=== PATIENT | female | born 1940 | race African-American/Black ===

== ENCOUNTER 2018-03-08 22:11 | Emergency (ER) | payer OTHER ==
--- NOTE | 2018-03-08 23:01 | PDOC ---
History of Present Illness - General Chief Complaint: Foreign Body (FB) Stated Complaint: FOREIGN BODY Time Seen by Provider: 03/08/18 22:40 - History of Present Illness Initial Comments: 03/08/18 23:00 77 yo F with h/o HTN who p/w throat irritation. Patient reports attempt attempt to swallow pill (clonazepam) at 1000PM, with development of sensation that pill is "stuck in throat." Patient able to tolerate PO intake of liquids, and solids with absent choking. Patient denies similiar h/o symptoms in past. Patient in normal state of health yesterday. Patient denies N/V, cough, F/C, CP, SOB, urinary complaints, abdominal pain, diarrhea, constipation, lightheadedness, weakness, sensory changes. PMHx: as noted above ROS: as noted SHx: Denies Etoh, IVDA, tobacco use. Allergies: NKDA Past History - Past Medical History Allergies/Adverse Reactions: Allergies Allergy/AdvReac Type Severity Reaction Status Date / Time No Known Allergies Allergy Verified 04/11/16 14:41 Home Medications: Ambulatory Orders Paroxetine HCl [Paxil -] 20 mg PO DAILY 08/01/11 Propranolol HCl [Inderal Xl] 120 mg PO DAILY 04/11/16 clonazePAM [KlonoPIN -] 1 mg PO TID 04/11/16 CVA: No Dementia: No Diabetes: Yes (DIET CONTROLLED) HTN: No Hypercholesterolemia: No Psychiatric Problems: Yes (ANXIETY , SHAKEY, NERVOUS PROBLEM) Seizures: No - Surgical History Abdominal Surgery: Yes (TUBAL LIGATION) - Suicide/Smoking/Psychosocial Hx Smoking Status: No Smoking History: Never smoked Have you smoked in the past 12 months: No Number of Cigarettes Smoked Daily: 0 If you are a former smoker, when did you quit?: 30YRS AGO Hx Alcohol Use: No Drug/Substance Use Hx: No Substance Use Type: None Review of Systems - Review of Systems Comments:: 03/08/18 23:01 GENERAL/CONSTITUTIONAL: No fever or chills. No weakness. HEAD, EYES, EARS, NOSE AND THROAT: No change in vision. No ear pain or discharge. CARDIOVASCULAR: No chest pain or shortness of breath RESPIRATORY: No cough, wheezing, or hemoptysis. GASTROINTESTINAL: No nausea, vomiting, diarrhea or constipation. GENITOURINARY: No dysuria, frequency, or change in urination. MUSCULOSKELETAL: No joint or muscle swelling or pain. No neck or back pain. SKIN: No rash NEUROLOGIC: No headache, vertigo, loss of consciousness, or change in strength/ sensation. ENDOCRINE: No increased thirst. No abnormal weight change HEMATOLOGIC/LYMPHATIC: No anemia, easy bleeding, or history of blood clots. ALLERGIC/IMMUNOLOGIC: No hives or skin allergy. *Physical Exam - Physical Exam Comments: 03/08/18 23:01 GENERAL: Awake, alert, and fully oriented, in no acute distress HEAD: No signs of trauma, normocephalic, atraumatic EYES: PERRLA, EOMI, sclera anicteric, conjunctiva clear ENT: Auricles normal inspection, hearing grossly normal, nares patent, oropharynx clear without exudates. Moist mucosa NECK: Normal ROM, supple, no lymphadenopathy, JVD, or masses LUNGS: No distress, speaks full sentences, clear to auscultation bilaterally HEART: Regular rate and rhythm, normal S1 and S2, no murmurs, rubs or gallops, peripheral pulses normal and equal bilaterally. EXTREMITIES : Normal inspection, Normal range of motion, no edema. No clubbing or cyanosis. SKIN: Warm, Dry, normal turgor, no rashes or lesions noted Medical Decision Making - Medical Decision Making 03/08/18 23:14 77 yo F with h/o HTN who p/w throat irritation. VSS, AF. Physical exam unremakarble. Low suspicion of transport dysphagia, obstructive or motor disease. R/o foreign body esophogeal perforation. Symptoms likely 2/2 globus sensation. Able to tolerate oral secretions, voice non-muffled. ED Course: CXR Maloox, viscous lidocaine 03/09/18 01:17 CXR: Unremarkable Patient with resolution of sore throat. Able to tolerate PO food and liquid intake. *DC/Admit/Observation/Transfer Diagnosis at time of Disposition: Sore throat - Referrals Referrals: Nicolle Siegel MD [Primary Care Provider] - - Patient Instructions Printed Discharge Instructions: Sore Throat Additional Instructions: Please return to the emergency department with any new or worsening symptoms or concerns. Please follow up with your primary care physician within 72 hours. - Post Discharge Activity - Attestations Physician Attestion: 03/08/18 23:01 I attest to the information provided in this note.
[2018-03-08 23:12] VITALS: BP 159/82; PULSE 70; TEMP 99; BMI 40.3
[2018-03-09] MEDS ORDERED: MAG HYDROX/AL HYDROX/SIMETH 30 ML UNIT-DOSE CUP PO ONE (01:04)
[2018-03-09] MEDS ORDERED: LIDOCAINE VISCOUS 2% ORAL/TOP 20 ML UNIT-DOSE CUP MM ONE (01:04)
[2018-03-09] MEDS ORDERED: MAG HYDROX/AL HYDROX/SIMETH 30 ML UNIT-DOSE CUP ONE (01:16)
[2018-03-09] MEDS ORDERED: LIDOCAINE VISCOUS 2% ORAL/TOP 20 ML UNIT-DOSE CUP ONE (01:16)
--- NOTE | 2018-03-09 01:34 | PDOC ---
Attending Attestation - Resident Resident Name: Joshua Starr - ED Attending Attestation I have performed the following: I have examined & evaluated the patient, The case was reviewed & discussed with the resident, I agree w/resident's findings & plan, Exceptions are as noted - HPI HPI: 03/09/18 01:21 77yo F presents to the ED with sensation that pill is stuck in throat. Pt reports taking her clonazepam with some water and felt the pill stuck in her throat. She denies any coughing or SOB. Denies choking. REports she has been able to drink water since. Has not eaten yet. She currently states she no longer has the sensation that the pill is stuck. She endorses a sore throat earlier this morning and states he throat feels mildly sore now. Denies fevers, chills. Denies cough. Denies N/V. Denies headache, weakness, numbness. HAs never had strictures or swallowing difficulties in the past. - Physicial Exam PE: 03/09/18 01:34 GENERAL: Awake, alert, and fully oriented, in no acute distress. Pleasant eating crackers. HEAD: No signs of trauma EYES: PERRLA, EOMI, sclera anicteric, conjunctiva clear ENT: Hearing grossly normal, nares patent, oropharynx clear without exudates, erythema. Moist mucosa. Uvula midline NECK: Normal ROM, supple, no lymphadenopathy, JVD, or masses LUNGS: Breath sounds equal, clear to auscultation bilaterally. No wheezes, and no crackles HEART: Regular rate and rhythm, normal S1 and S2, no murmurs, rubs or gallops ABDOMEN: Soft, nontender, normoactive bowel sounds. No guarding, no rebound. No masses EXTREMITIES: Normal range of motion, no edema. No clubbing or cyanosis. No cords, erythema, or tenderness NEUROLOGICAL: Normal speech, cranial nerves intact,5/5 strength in all 4 extremities, normal sensation to light touch in all 4 extremities, normal cerebellar exam, normal gait, normal reflexes and tone SKIN: Warm, Dry, normal turgor, no rashes or lesions noted. - Medical Decision Making 03/09/18 01:36 77yo F presents to the ED with sensation that pill is stuck in throat, now resolved. Pt tolerating PO, eating crackers with no choking, dysphasia, odynophasia. No resp distress, stridor or tripoding. Pt feeling better now, requests DC home with family who is at bedside. Pt to f/u with PMD. I discussed the physical exam findings, ancillary test results and final diagnoses with the patient. I answered all of the patient's questions. The patient was satisfied with the care received and felt comfortable with the discharge plan and treatment plan. The patient will call their primary care physician within 24 hours to arrange follow-up and will return to the Emergency Department with any new, persistent or worsening symptoms.
== END 2018-03-09 01:39 | disposition home or self-care (01) ==
LOC: JER 22:11
DX: J02.9 Acute pharyngitis, unspecified (principal); I10 Essential (primary) hypertension; E11.9 Type 2 diabetes mellitus without complications; F41.9 Anxiety disorder, unspecified
CPT/HCPCS: 71045-TC-FY; 99284-25

== ENCOUNTER 2019-03-07 20:46 | Inpatient (IN) | payer OTHER ==
[2019-03-07] MEDS ORDERED: ONDANSETRON 4 MG/2 ML VIAL IVPUSH ONE (21:04)
[2019-03-07] MEDS ORDERED: SODIUM CHLORIDE 1,000 ML IV STA (21:04)
[2019-03-07] MEDS ORDERED: morphine CARPU-JECT 4 MG/1 ML DISP.SYRIN IVPUSH ONE (21:04)
--- NOTE | 2019-03-07 21:04 | PDOC ---
Rapid Medical Evaluation Chief Complaint: Pain Time Seen by Provider: 03/07/19 21:00 Medical Evaluation: Allergies Allergy/AdvReac Type Severity Reaction Status Date / Time No Known Allergies Allergy Verified 03/07/19 21:02 03/07/19 21:03 CC: LLQ pain with brown diarrhea. Denies rectal bleeding or travel. PE: LLQ TTP. +guarding Orders: abd w/u Patient to proceed to ER for evaluation. Discharge Disposition - Diagnosis Abdominal pain - Referrals Referrals: Nicolle Siegel MD [Primary Care Provider] - - Patient Instructions - Post Discharge Activity
--- NOTE | 2019-03-07 21:20 | PDOC ---
History of Present Illness - General Chief Complaint: Pain Stated Complaint: ABD PAIN Time Seen by Provider: 03/07/19 21:00 Past History - Past Medical History Allergies/Adverse Reactions: Allergies Allergy/AdvReac Type Severity Reaction Status Date / Time No Known Allergies Allergy Verified 03/07/19 21:02 Home Medications: Ambulatory Orders Paroxetine HCl [Paxil -] 20 mg PO DAILY 08/01/11 clonazePAM [KlonoPIN -] 1 mg PO TID 04/11/16 propRANOLol HCL [Inderal Xl] 120 mg PO DAILY 04/11/16 CVA: No COPD: No Dementia: No Diabetes: Yes (DIET CONTROLLED) HTN: No Hypercholesterolemia: No Psychiatric Problems: Yes (ANXIETY , SHAKEY, NERVOUS PROBLEM) Seizures: No - Surgical History Abdominal Surgery: Yes (TUBAL LIGATION) - Psycho Social/Smoking Cessation Hx Smoking Status: No Smoking History: Never smoked Have you smoked in the past 12 months: No Number of Cigarettes Smoked Daily: 0 If you are a former smoker, when did you quit?: 30YRS AGO Hx Alcohol Use: No Drug/Substance Use Hx: No Substance Use Type: None *Physical Exam - Vital Signs Last Vital Signs Temp Pulse Resp BP Pulse Ox 99 F 74 18 188/84 H 99 03/07/19 21:02 03/07/19 21:02 03/07/19 21:02 03/07/19 21:02 03/07/19 21:02 ED Treatment Course - LABORATORY CBC & Chemistry Diagram: 03/07/19 21:16 03/07/19 21:16 Medical Decision Making - Medical Decision Making HPI: 78yo F with PMH of HTN, pancreatitis presenting with abdominal pain x 1 day. Patient states this pain feels like her pancreatitis which was last exacerbated several years ago. Patient follows with a GI specialist and saw him within the last month. Had endoscopy/colonoscopy this past summer which was negative. Had three bowel movements today which were normal formed brown stools without blood. After the most recent bowel movement which she had in the ED, patient states her abdominal pain improved. Endorsing nausea earlier today, but not currently and no vomiting. Denies history of abdominal surgeries. No fevers, but felt cold earlier today. PCP: Dr. Nicolle Siegel GI: Dr. Canela ROS: Constitutional: no fever, +chills HEENT: no throat pain, no dysphagia Cardiovascular: no chest pain, no palpitations Respiratory: no cough, no shortness of breath Gastrointestinal: +abdominal pain, +nausea Genitourinary: no dysuria, no hematuria Musculoskeletal: no myalgia, no arthralgia Skin: no rash, no itching Neurologic: no headache, no weakness PE: General: Awake, alert, and fully oriented, in no acute distress Head: No signs of trauma Eyes: EOMI, sclera anicteric ENT: Moist mucus membranes Neck: Normal ROM, supple Lungs: Lungs clear, Normal breath sounds Cardio: Regular rhythm, S1 and S2 present Abdomen: Tender to palpation in epigastrium. Soft, nondistended. No guarding, no rebound, no masses Extremities: Normal range of motion, Distal pulses present SKIN: Warm, Dry, normal turgor Neurologic: Cranial nerves II through XII grossly intact. Normal speech. Tremulous. ED Course/MDM: DDX including but not limited to pancreatitis, acute cholecystitis, cholelithiasis, gastritis, gastroenteritis Labs, EKG, CXR Fluids, Zofran, Morphine EKG: rate 63, Qtc 444, NSR with sinus arrhythmia 03/07/19 21:20 CBC WBC 11.9 K/mm3 (4.0-10.0) H 03/07/19 21:16 RBC 4.49 M/mm3 (3.60-5.2) 03/07/19 21:16 Hgb 12.7 GM/dL (10.7-15.3) 03/07/19 21:16 Hct 38.7 % (32.4-45.2) 03/07/19 21:16 MCV 86.1 fl (80-96) 03/07/19 21:16 MCH 28.2 pg (25.7-33.7) 03/07/19 21:16 MCHC 32.8 g/dl (32.0-36.0) 03/07/19 21:16 RDW 14.4 % (11.6-15.6) 03/07/19 21:16 Plt Count 335 K/MM3 (134-434) 03/07/19 21:16 MPV 8.3 fl (7.5-11.1) 03/07/19 21:16 Absolute Neuts (auto) 9.9 K/mm3 (1.5-8.0) H 03/07/19 21:16 Neutrophils % 82.6 % (42.8-82.8) D 03/07/19 21:16 Lymphocytes % 10.6 % (8-40) D 03/07/19 21:16 Monocytes % 6.3 % (3.8-10.2) 03/07/19 21:16 Eosinophils % 0.0 % (0-4.5) D 03/07/19 21:16 Basophils % 0.5 % (0-2.0) 03/07/19 21:16 Nucleated RBC % 0 % (0-0) 03/07/19 21:16 Mild leukocytosis, 11.9 CMP Sodium 138 mmol/L (136-145) 03/07/19 21:16 Potassium 4.1 mmol/L (3.5-5.1) 03/07/19 21:16 Chloride 106 mmol/L (98-107) 03/07/19 21:16 Carbon Dioxide 25 mmol/L (21-32) 03/07/19 21:16 Anion Gap 7 MMOL/L (8-16) L 03/07/19 21:16 BUN 12.2 mg/dL (7-18) 03/07/19 21:16 Creatinine 0.8 mg/dL (0.55-1.3) 03/07/19 21:16 Est GFR (CKD-EPI)AfAm 82.42 03/07/19 21:16 Est GFR (CKD-EPI)NonAf 71.11 03/07/19 21:16 Random Glucose 148 mg/dL (74-106) H 03/07/19 21:16 Calcium 9.2 mg/dL (8.5-10.1) 03/07/19 21:16 Total Bilirubin 1.2 mg/dL (0.2-1) H 03/07/19 21:16 AST 276 U/L (15-37) H 03/07/19 21:16 ALT 120 U/L (13-61) H 03/07/19 21:16 Alkaline Phosphatase 263 U/L (45-117) H 03/07/19 21:16 Total Protein 8.0 g/dl (6.4-8.2) 03/07/19 21:16 Albumin 3.6 g/dl (3.4-5.0) 03/07/19 21:16 Lipase 545 U/L (73-393) H 03/07/19 21:16 Electrolytes unremarkable Cr normal Transaminitis ALP elevated Lipase elevated, 545 CTAP with IV contrast, as read by radiology: "EXAM#: TYPE/EXAM: RESULT: [id number] CT/ABDOMEN PELVIS CT WITH CONTR Abdomen and pelvis CT with intravenous contrast Clinical information: epigastric pain, history of pancreatitis Multiplanar imaging was performed following the intravenous administration of nonionic contrast. Enteric contrast was not administered. No evidence of pneumoperitoneum, abscess, free intraperitoneal fluid or bowel obstruction. In comparison to a prior CT exam of 12/06/2018 interval increased common bile duct dilatation is noted with a current diameter of 1.5 cm, previously 1.1 cm. No gross intraductal calculus is identified within the limitations of CT. There is mild to moderate intrahepatic biliary tract dilatation which appears mildly increased. Cholelithiasis is again noted better appreciated on previously performed MRI and ultrasound studies. Also as on prior studies there is mild diffuse gallbladder wall thickening probably on the basis of chronic cholecystitis. Note is again made of multiple small pancreatic calcifications distributed diffusely consistent with chronic calcific pancreatitis. There is increased dilatation involving the length of the main pancreatic duct with a current diameter of approximately 0.5 cm, previously 0.4 cm. No gross pancreatic soft tissue mass lesion is identified. Diffuse pancreatic atrophy is again visualized. No CT evidence of superimposed acute pancreatitis. Clinical/ laboratory correlation is suggested. A 1 cm left adrenal nodule is seen without interval change probably representing an adenoma on a statistical basis. This finding is also unchanged in comparison to a 2012 CT exam. The liver, spleen, right adrenal gland and kidneys demonstrate no discrete pathology. There is no aortic aneurysm. Several stable slightly prominent homogeneous lymph nodes are seen within the tara hepatis probably on a reactive basis. There is no obvious pelvic pathology. No CT evidence of acute appendicitis or diverticulitis. There is no gross noncontrast small bowel to moderate. Moderate to marked multilevel lumbar degenerative disc changes are seen. Marked right hip and moderate to marked left hip degenerative joint changes. Impression: In comparison to a CT exam of 12/06/2018 interval increased extrahepatic and intrahepatic biliary tract dilatation is noted. There is again visualization of chronic calcific pancreatitis with diffuse pancreatic atrophy. Mildly increased dilatation is noted of the main pancreatic duct. Cholelithiasis is again seen with mild chronic gallbladder wall thickening suggestive of chronic cholecystitis. Stable 1 cm left adrenal nodule probably representing an adenoma. Biochemical evaluation is suggested." Pending ultrasound report 03/08/19 00:14 US, as read by imaging sponge clipper: "FINDINGS: Right upper quadrant ultrasound:The liver is fatty mildly enlarged 18 cm, without mass or biliary duct dilation. The gallbladder contains multiple stones and there is mild wall thickening at 4 mm. No pericholecystic fluid or sonographic Mendoza sign.. The CBD is dilated and [id number] millimeters in diameter. Right kidney measures 7.5centimeters in length, without stones or hydronephrosis. The visualized aorta and IVC are normal. Pancreas is mostly obscured. Abdominal duplex: There is normal hepatopedal flow in the main portal vein. IMPRESSION: Moderate suspicion for cholecystitis. Dilated CBD could be due to a nonvisualized CBD stone. Fatty mildly enlarged liver. Moderately atrophic right kidney." 03/08/19 00:35 Page to on-call surgeon, 03/08/19 00:[address] Avendano MRCP recommended NPO Fluids, 150cc/hr hold ASA TS, coags Will defer the decision for Abx to ID. If we want to give abx, we can give cefoxitin. 03/08/19 01:00 Discussed case with HENRIQUE Trejo who accepted patient for admission under Dr. Miller 03/08/19 02:01 Discharge - Discharge Information Problems reviewed: Yes Clinical Impression/Diagnosis: Gallstone pancreatitis Abdominal pain Qualifiers: Abdominal location: right upper quadrant Qualified Code(s): R10.11 - Right upper quadrant pain Condition: Guarded - Admission Yes - Follow up/Referral - Patient Discharge Instructions - Post Discharge Activity
[2019-03-07 21:27] LABS: BASO % 0.5 % (0-2.0); HEMATOCRIT 38.7 % (32.4-45.2); HEMOGLOBIN 12.7 GM/dL (10.7-15.3); LYMPH % 10.6 % (8-40); MCH 28.2 pg (25.7-33.7); MCHC 32.8 g/dl (32.0-36.0); MEAN CELL VOLUME 86.1 fl (80-96); MEAN PLT VOLUME 8.3 fl (7.5-11.1); MONO % 6.3 % (3.8-10.2); NEUT % 82.6 % (42.8-82.8); PLATELET COUNT 335 K/MM3 (134-434); RBC 4.49 M/mm3 (3.60-5.2); RDW 14.4 % (11.6-15.6); WHITE BLOOD COUNT 11.9 K/mm3 (4.0-10.0)
[2019-03-07] MEDS ORDERED: ONDANSETRON 4 MG/2 ML VIAL ONE (21:28)
[2019-03-07 21:56] LABS: ALBUMIN 3.6 g/dl (3.4-5.0); ALK PHOS 263 U/L (45-117); ANION GAP 7 MMOL/L (8-16); BILIRUBIN,TOTAL 1.2 mg/dL (0.2-1); BLOOD UREA NITROGEN 12.2 mg/dL (7-18); CALCIUM 9.2 mg/dL (8.5-10.1); CHLORIDE 106 mmol/L (98-107); CO2 25 mmol/L (21-32); CREATININE 0.8 mg/dL (0.55-1.3); GLUCOSE,RANDOM 148 mg/dL (74-106); LIPASE 545 U/L (73-393); POTASSIUM 4.1 mmol/L (3.5-5.1); SGOT/AST 276 U/L (15-37); SGPT/ALT 120 U/L (13-61); SODIUM 138 mmol/L (136-145)
--- NOTE | 2019-03-08 00:30 | PDOC ---
Attending Attestation - Resident Resident Name: Lorie Cox - ED Attending Attestation I have performed the following: I have examined & evaluated the patient, The case was reviewed & discussed with the resident, I agree w/resident's findings & plan - HPI HPI: 03/08/19 00:29 see resident hpi - Physicial Exam PE: 03/08/19 00:29 agree with resident exam - Medical Decision Making 03/08/19 00:29 78-year-old female with history of pancreatitis and upper abdominal pain CT scan of the abdomen as well as right upper quadrant ultrasound were performed and suggest gallstone pancreatitis cholecystitis cannot be ruled out plan for IV antibiotics, nothing by mouth, IV fluids and analgesics Surgical consultation and admission for further management
[2019-03-08 01:15] LABS: URINE APPEARANCE CLEAR; URINE COLOR YELLOW
[2019-03-08 01:16] LABS: URINE BILIRUBIN NEGATIVE (NEGATIVE); URINE GLUCOSE (UA) NEGATIVE (NEGATIVE); URINE KETONE NEGATIVE (NEGATIVE); URINE PROTEIN NEGATIVE (NEGATIVE)
[2019-03-08 01:17] LABS: EPI CELLS 2.7 /HPF (0-5/HPF); HYALINE CASTS 0.35 /lpf (0-8); URINE BACTERIA 30.8 /hpf (NEGATIVE); URINE LEUK ESTERASE NEGATIVE (NEGATIVE); URINE NITRITE NEGATIVE (NEGATIVE); URINE RBC 2.8 /hpf (0-4); URINE WBC 0.6 /hpf (0-5)
[2019-03-08] MEDS ORDERED: SODIUM CHLORIDE 1,000 ML IV SCH ×2 (01:30→08:45)
[2019-03-08] MEDS ORDERED: morphine CARPU-JECT 4 MG/1 ML DISP.SYRIN IVPUSH ONE (01:57)
--- NOTE | 2019-03-08 02:03 | HP ---
Admitting History and Physical - Primary Care Physician PCP: Nicolle Siegel - Admission Chief Complaint: Abdominal Pain History of Present Illness: This is a 78 y/o woman with a PMHx of HTN, Pancreatitis, Anxiety. Who presents to the ED with abdominal pain and nausea x 1 day. Patient reports eating plantains with a salad, then around 12 noon she began having a sharp pain to her epigastrium radiating to RUQ. She reports attempting to lay down and get some rest, but that the pain became worse, calling her son, who suggested she go to the ED. Patient reports that the pain is similar to the Pancreatitis episode, several years ago. Patient reports having 3 formed non bloody BMs yesterday and per ED resident, had a BM in the ED with some relief. Patient reports seeing her GI this past summer having an EGD/Colonoscopy, which she reports being negative. Patient denies fever, chills, MURILLO, SOB, dizziness, CP, palpitations, V/D, constipation, melena, hematochezia, dysuria History Source: Patient Limitations to Obtaining History: No Limitations - Past Medical History Cardiovascular: Yes: HTN Gastrointestinal: Yes: Pancreatitis Psych: Yes: Anxiety Endocrine: Yes: Diabetes Mellitus (diet controlled) - Past Surgical History Past Surgical History: Yes: Colonoscopy, Joint Replacement (Left Knee) Additional Past Surgical History: EGD - Smoking History Smoking history: Former smoker Have you smoked in the past 12 months: No Aproximately how many cigarettes per day: 0 If you are a former smoker, when did you quit?: 30YRS AGO - Alcohol/Substance Use Hx Alcohol Use: No History of Substance Use: reports: None - Social History Usual Living Arrangement: Yes: Alone 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[employer]) History of Recent Travel: No Home Medications - Allergies Allergies/Adverse Reactions: Allergies Allergy/AdvReac Type Severity Reaction Status Date / Time No Known Allergies Allergy Verified 03/07/19 21:02 - Home Medications Home Medications: Ambulatory Orders Paroxetine HCl [Paxil -] 20 mg PO DAILY 08/01/11 clonazePAM [KlonoPIN -] 1 mg PO TID 04/11/16 propRANOLol HCL [Inderal Xl] 120 mg PO DAILY 04/11/16 Family Medical History Family History: Unable to Obtain Review of Systems - Review of Systems Constitutional: reports: No Symptoms Eyes: reports: No Symptoms HENT: reports: No Symptoms Neck: reports: No Symptoms Cardiovascular: reports: No Symptoms Respiratory: reports: No Symptoms Gastrointestinal: reports: Abdominal Pain, Nausea Genitourinary: reports: No Symptoms Breasts: reports: No Symptoms Reported Musculoskeletal: reports: No Symptoms Integumentary: reports: No Symptoms Neurological: reports: No Symptoms Endocrine: reports: No Symptoms Hematology/Lymphatic: reports: No Symptoms Psychiatric: reports: No Symptoms Pain Intensity: 7 Physical Examination Vital Signs: Vital Signs Temperature 99 F 03/07/19 21:02 Pulse Rate 74 03/07/19 21:02 Respiratory Rate 18 03/07/19 21:02 Blood Pressure 188/84 H 03/07/19 21:02 O2 Sat by Pulse Oximetry (%) 99 03/07/19 21:02 Constitutional: Yes: Well Nourished, No Distress, Calm Eyes: Yes: WNL, Conjunctiva Clear, EOM Intact, PERRL HENT: Yes: WNL, Atraumatic, Normocephalic Neck: Yes: WNL, Supple, Trachea Midline Cardiovascular: Yes: WNL, Regular Rate and Rhythm, S1, S2 Respiratory: Yes: WNL, Regular, CTA Bilaterally Gastrointestinal: Yes: Soft, Abdomen, Obese, Hypoactive Bowel Sounds, Tenderness , Epigastrium. No: Tenderness, Rebound Renal/: Yes: WNL Breast(s): Yes: WNL Musculoskeletal: Yes: WNL Extremities: Yes: WNL Edema: No Peripheral Pulses WNL: Yes Neurological: Yes: Alert, Oriented, Cran Nerves II-XII Intact ...Motor Strength: WNL Psychiatric: Yes: WNL, Alert, Oriented Labs: CBC, BMP 03/07/19 21:16 03/07/19 21:16 Imaging - Results Cat Scan: Report Reviewed (CTAP with IV contrast, as read by radiology: "EXAM#: TYPE/EXAM: RESULT: [id number] CT/ABDOMEN PELVIS CT WITH CONTR Abdomen and pelvis CT with intravenous contrast Clinical information: epigastric pain, history of pancreatitis Multiplanar imaging was performed following the intravenous administration of nonionic contrast. Enteric contrast was not administered. No evidence of pneumoperitoneum, abscess, free intraperitoneal fluid or bowel obstruction. In comparison to a prior CT exam of 12/06/2018 interval increased common bile duct dilatation is noted with a current diameter of 1.5 cm, previously 1.1 cm. No gross intraductal calculus is identified within the limitations of CT. There is mild to moderate intrahepatic biliary tract dilatation which appears mildly increased. Cholelithiasis is again noted better appreciated on previously performed MRI and ultrasound studies. Also as on prior studies there is mild diffuse gallbladder wall thickening probably on the basis of chronic cholecystitis. Note is again made of multiple small pancreatic calcifications distributed diffusely consistent with chronic calcific pancreatitis. There is increased dilatation involving the length of the main pancreatic duct with a current diameter of approximately 0.5 cm, previously 0.4 cm. No gross pancreatic soft tissue mass lesion is identified. Diffuse pancreatic atrophy is again visualized. No CT evidence of superimposed acute pancreatitis. Clinical/laboratory correlation is suggested. A 1 cm left adrenal nodule is seen without interval change probably representing an adenoma on a statistical basis. This finding is also unchanged in comparison to a 2012 CT exam. The liver, spleen, right adrenal gland and kidneys demonstrate no discrete pathology. There is no aortic aneurysm. Several stable slightly prominent homogeneous lymph nodes are seen within the tara hepatis probably on a reactive basis. There is no obvious pelvic pathology. No CT evidence of acute appendicitis or diverticulitis. There is no gross noncontrast small bowel to moderate. Moderate to marked multilevel lumbar degenerative disc changes are seen. Marked right hip and moderate to marked left hip degenerative joint changes. Impression: In comparison to a CT exam of 12/06/2018 interval increased extrahepatic and intrahepatic biliary tract dilatation is noted. There is again visualization of chronic calcific pancreatitis with diffuse pancreatic atrophy. Mildly increased dilatation is noted of the main pancreatic duct. Cholelithiasis is again seen with mild chronic gallbladder wall thickening suggestive of chronic cholecystitis. Stable 1 cm left adrenal nodule probably representing an adenoma. Biochemical evaluation is suggested."), Image Reviewed Ultrasound: Report Reviewed (US, as read by imaging contract management specialist: "FINDINGS: Right upper quadrant ultrasound:The liver is fatty mildly enlarged 18 cm, without mass or biliary duct dilation. The gallbladder contains multiple stones and there is mild wall thickening at 4 mm. No pericholecystic fluid or sonographic Mendoza sign.. The CBD is dilated and [id number] millimeters in diameter. Right kidney measures 7.5centimeters in length, without stones or hydronephrosis. The visualized aorta and IVC are normal. Pancreas is mostly obscured. Abdominal duplex: There is normal hepatopedal flow in the main portal vein. IMPRESSION: Moderate suspicion for cholecystitis. Dilated CBD could be due to a nonvisualized CBD stone. Fatty mildly enlarged liver. Moderately atrophic right kidney." 03/08/19 00:35), Image Reviewed Problem List - Problems (1) Gallstone pancreatitis Assessment/Plan: CTAP- showed increased biliary tract dilatation, chronic calcific pancreatitis, cholelithiasis, mild chronic gallbladder wall thickening suggestive of chronic cholecystitis, stable 1cm left adrenal nodule probably representing an adenoma. Biochemical evaluation is suggested Appreciate Surgical consult- Dr Avendano notified and aware, per ED resident WBC 11.9, no L- shift, pt afebrile NS fluids given in ED, will switch to LR instead NPO Monitor CBC, BMP Zofran prn Pain Management- Morphine Sulfate MRCP- pending Code(s): K85.10 - BILIARY ACUTE PANCREATITIS WITHOUT NECROSIS OR INFECTION (2) Chronic cholecystitis Assessment/Plan: CTAP- reviewed WBC 13.9 Surgical Consult appreciated NPO Continue IVF Code(s): K81.1 - CHRONIC CHOLECYSTITIS (3) Abdominal pain Assessment/Plan: See above Code(s): R10.9 - UNSPECIFIED ABDOMINAL PAIN Qualifiers: Abdominal location: right upper quadrant Qualified Code(s): R10.11 - Right upper quadrant pain (4) HTN (hypertension) Assessment/Plan: sub optimal Continue home med Monitor BP Code(s): I10 - ESSENTIAL (PRIMARY) HYPERTENSION Assessment/Plan This is a 78 y/o woman with a PMHx of HTN, Pancreatitis, Anxiety admitted to Med Surg for Chronic Pancreatitis for further evaluation of their emergent condition. Plan: See Problem List FEN LR@150ml/hr Replete lytes prn NPO DVT ppx OOB SCDs Will hold ACs until cleared by Surgeon possible procedure Dispo: Requires Inpatient Care Visit type - Emergency Visit Emergency Visit: Yes ED Registration Date: 03/07/19 Care time: The patient presented to the Emergency Department on the above date and was hospitalized for further evaluation of their emergent condition. - New Patient This patient is new to me today: Yes Date on this admission: 03/08/19 - Critical Care Critical Care patient: No
[2019-03-08] MEDS ORDERED: morphine SULFATE 4 MG/ML VIAL ONE (02:19)
[2019-03-08] MEDS: LACTATED RINGERS SOLUTION 1,000 ML/1,000 ML INFUS.BAG IV SCH ×2 (02:23→04:37)
[2019-03-08] MEDS ORDERED: ONDANSETRON 4 MG/2 ML VIAL IVPUSH PRN (03:00)
[2019-03-08 05:07] VITALS: BMI 32.1
[2019-03-08] MEDS ORDERED: morphine SULFATE 4 MG/ML VIAL IVPUSH PRN (06:00)
[2019-03-08 07:03] LABS: BASO % 0.8 % (0-2.0); HEMATOCRIT 38.4 % (32.4-45.2); HEMOGLOBIN 12.2 GM/dL (10.7-15.3); LYMPH % 6.9 % (8-40); MCH 27.8 pg (25.7-33.7); MCHC 31.8 g/dl (32.0-36.0); MEAN CELL VOLUME 87.5 fl (80-96); MEAN PLT VOLUME 9.1 fl (7.5-11.1); MONO % 5.1 % (3.8-10.2); NEUT % 87.2 % (42.8-82.8); PLATELET COUNT 289 K/MM3 (134-434); RBC 4.39 M/mm3 (3.60-5.2); RDW 14.5 % (11.6-15.6); WHITE BLOOD COUNT 14.6 K/mm3 (4.0-10.0)
[2019-03-08 07:23] LABS: INR 1.22 (0.83-1.09); PROTHROMBIN TIME (PATIENT) 14.4 SEC (9.7-13.0)
[2019-03-08 07:34] LABS: BLOOD UREA NITROGEN 8.9 mg/dL (7-18); CALCIUM 8.9 mg/dL (8.5-10.1); CREATININE 0.8 mg/dL (0.55-1.3); POTASSIUM 3.8 mmol/L (3.5-5.1)
--- NOTE | 2019-03-08 08:25 | CON.GI ---
Consult Consult Specialty:: GI Referred by:: Lilly Trejo NP Reason for Consultation:: Chronic Pancreatitis - History of Present Illness Chief Complaint: Abdominal Pain History of Present Illness: Patient is a 78 y/o female with past medical history of HTN and Pancreatitis. Patient presented to ER with complaints of abdominal pain. Patient states that after eating plantains yesterday at 12pm she developed a cramping right sided abdominal pain radiating to epigastric area accompanied with nausea and loose BM. She states nothing exacerbated the abdominal pain but it was relieved with "pills" but unable to state which pill. Denies vomiting, rectal bleeding, melena. In ER noted with leukocytosis WBC 11.[address] scan showing increased CBD dilatation with current diameter 1.5cm, chronic calcific pancreatitis with diffuse pancreatic atrophy, mildly increased dilatation noted in main pancreatic duct, cholelithiasis with mild chronic gallbladder wall thickening suggestive of chronic cholecystitis. - History Source History Provided By: Patient Limitations to Obtaining History: No Limitations - Past Medical History Cardio/Vascular: Yes: HTN Gastrointestinal: Yes: Pancreatitis ...: No Psych: Yes: Anxiety Endocrine: Yes: Diabetes Mellitus (diet controlled) - Past Surgical History Past Surgical History: Yes: Colonoscopy, Joint Replacement (Left Knee) - Alcohol/Substance Use Hx Alcohol Use: No History of Substance Use: reports: None - Smoking History Smoking history: Former smoker Have you smoked in the past 12 months: No Aproximately how many cigarettes per day: 0 If you are a former smoker, when did you quit?: 30YRS AGO - Social History 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[facility]) History of Recent Travel: No Home Medications - Allergies Allergies/Adverse Reactions: Allergies Allergy/AdvReac Type Severity Reaction Status Date / Time No Known Allergies Allergy Verified 03/07/19 21:02 - Home Medications Home Medications: Ambulatory Orders Paroxetine HCl [Paxil -] 20 mg PO DAILY 08/01/11 clonazePAM [KlonoPIN -] 1 mg PO TID 04/11/16 propRANOLol HCL [Inderal Xl] 120 mg PO DAILY 04/11/16 Aspirin 81 mg PO DAILY 03/08/19 Review of Systems - Review of Systems Constitutional: reports: No Symptoms Eyes: reports: No Symptoms HENT: reports: No Symptoms Neck: reports: No Symptoms Cardiovascular: reports: No Symptoms Respiratory: reports: No Symptoms Gastrointestinal: reports: Abdominal Pain, Nausea Genitourinary: reports: No Symptoms Breasts: reports: No Symptoms Reported Musculoskeletal: reports: No Symptoms Integumentary: reports: No Symptoms Neurological: reports: No Symptoms Endocrine: reports: No Symptoms Hematology/Lymphatic: reports: No Symptoms Psychiatric: reports: No Symptoms Physical Exam-GI Vital Signs: Vital Signs Temperature 98.0 F 03/08/19 06:41 Pulse Rate 79 03/08/19 06:41 Respiratory Rate 18 03/08/19 06:41 Blood Pressure 170/84 03/08/19 06:41 O2 Sat by Pulse Oximetry (%) 99 03/08/19 04:40 Constitutional: Yes: No Distress, Calm Eyes: Yes: Conjunctiva Clear HENT: Yes: Atraumatic Cardiovascular: Yes: Regular Rate and Rhythm Respiratory: Yes: Regular, CTA Bilaterally Gastrointestinal Inspection: Yes: WNL. No: Ascites, Distention, Hernia, Scars, Other ...Auscultate: Yes: Normoactive Bowel Sounds. No: Hyperactive Bowel Sounds, Hypoactive Bowel Sounds, No Bowel Sounds, Other ...Palpate: Yes: Soft, Tenderness (RUQ, epigastric). No: Firm/Rigid, Guarding, Hepatomegaly, Mass, Pulsatile Mass, Splenomegaly, Tenderness, Epigastium, Tenderness, Rebound, Other ...Percussion: Yes: Dullness. No: Fluid Wave, Tympanitic, Other Neurological: Yes: Alert, Oriented Psychiatric: Yes: Alert, Oriented Labs: CBC, BMP 03/08/19 06:25 03/08/19 06:25 INR, PTT INR 1.22 (0.83-1.09) H 03/08/19 06:25 Active Medications Generic Name Dose Route Start Last Admin Trade Name Freq PRN Reason Stop Dose Admin Ceftriaxone Sodium 1 gm/ 50 mls @ 100 mls/hr 03/08/19 10:00 Dextrose IVPB DAILY [facility] Protocol Metronidazole 500 mg in 100 mls @ 100 mls/hr 03/08/19 10:00 Flagyl 500mg Premixed Ivpb - IVPB Q8H-IV RACHEL Sodium Chloride 1,000 mls @ 125 mls/hr 03/08/19 08:45 Normal Saline - IV 03/10/19 16:44 ASDIR RACHEL Sodium Chloride 1,000 mls @ 150 mls/hr 03/08/19 08:45 Normal Saline - IV 03/10/19 15:24 ASDIR [facility] Morphine Sulfate 4 mg 03/08/19 06:00 Morphine Sulfate IVPUSH Q6H PRN PAIN LEVEL 7 - 10 Ondansetron HCl 4 mg 03/08/19 03:00 03/08/19 02:29 Zofran Injection IVPUSH 4 mg Q6H PRN Administration NAUSEA Propranolol HCl 120 mg 03/08/19 10:00 Inderal La - PO DAILY [facility] Problem List - Problems (1) Cholangitis Assessment/Plan: R> will need ERCP risk ERCP but not limited to severe pancreatitis, bleeding, perforation and risk of anesthesia, stroke and NH was discussed with the patient and her son. There given a chance to ask questions. Code(s): K83.09 - OTHER CHOLANGITIS (2) Chronic cholecystitis Assessment/Plan: -IV hydration -Ceftriaxone and Flagyl -Lipase 545 -CT scan results reviewed -Surgical Consult Code(s): K81.1 - CHRONIC CHOLECYSTITIS (3) Gallstone pancreatitis Assessment/Plan: -IV hydration -Ceftriaxone and Flagyl -pending Abdominal MRCP Code(s): K85.10 - BILIARY ACUTE PANCREATITIS WITHOUT NECROSIS OR INFECTION
[2019-03-08] MEDS ORDERED: cefTRIAXone SODIUM 1 GM VIAL ONE (09:30)
[2019-03-08] MEDS ORDERED: DEXTROSE 5%-WATER - 50 ML IVPB ONE (09:30)
[2019-03-08] MEDS ORDERED: CEFTRIAXONE 1 GM in DEXTROSE 5%-WATER - 50 ML IVPB SCH (10:00)
[2019-03-08] MEDS: SODIUM CHLORIDE 1,000 ML IV SCH (10:59)
--- NOTE | 2019-03-08 11:31 | EKG ---
Test Reason : Blood Pressure : / mmHG Vent. Rate : 063 BPM Atrial Rate : 063 BPM P-R Int : 180 ms QRS Dur : 090 ms QT Int : 434 ms P-R-T Axes : 064 031 054 degrees QTc Int : 444 ms NORMAL SINUS RHYTHM WITH SINUS ARRHYTHMIA NORMAL ECG WHEN COMPARED WITH ECG OF 06-DEC-2013 14:25, CRITERIA FOR SEPTAL INFARCT ARE NO LONGER PRESENT Confirmed by JUAN DANIEL MARTIN, ROLANDO ([id number]) on 03/08/2019 11:30:53 AM Referred By: Confirmed By:ROLANDO FRANCES MD
[2019-03-08] MEDS ORDERED: INDOMETHACIN 50 MG RECTAL SUPPOSITORY PR ONE ×2 (12:52→13:10)
--- NOTE | 2019-03-08 13:36 | PN ---
Progress Note (short form) - Note Progress Note: Events noted has pain in abdomen Vital Signs - 24 hr 03/07/19 03/08/19 03/08/19 21:02 03:34 04:40 Temperature 99 F 98.9 F 97.7 F Pulse Rate 74 69 Pulse Rate [ 73 Apical] Respiratory 18 19 19 Rate Blood Pressure 188/84 H 167/84 Blood Pressure 173/86 H [Left Arm] O2 Sat by Pulse 99 99 99 Oximetry (%) 03/08/19 03/08/19 06:41 09:00 Temperature 98.0 F Pulse Rate 79 Pulse Rate [ Apical] Respiratory 18 20 Rate Blood Pressure 170/84 Blood Pressure [Left Arm] O2 Sat by Pulse 99 Oximetry (%) Current Medications Generic Name Dose Route Start Last Admin Trade Name Freq PRN Reason Stop Dose Admin Ceftriaxone Sodium 1 gm/ 50 mls @ 100 mls/hr 03/08/19 10:00 03/08/19 10:58 Dextrose IVPB 100 mls/hr DAILY RACHEL Administration Protocol Metronidazole 500 mg in 100 mls @ 100 mls/hr 03/08/19 10:00 03/08/19 10:58 Flagyl 500mg Premixed Ivpb - IVPB 100 mls/hr Q8H-IV RACHEL Administration Sodium Chloride 1,000 mls @ 125 mls/hr 03/08/19 08:45 03/08/19 11:05 Normal Saline - IV 03/10/19 16:44 125 mls/hr ASDIR RACHEL Administration Sodium Chloride 1,000 mls @ 150 mls/hr 03/08/19 08:45 03/08/19 10:59 Normal Saline - IV 03/10/19 15:24 150 mls/hr ASDIR RACHEL Administration Morphine Sulfate 4 mg 03/08/19 06:00 Morphine Sulfate IVPUSH Q6H PRN PAIN LEVEL 7 - 10 Ondansetron HCl 4 mg 03/08/19 03:00 03/08/19 02:29 Zofran Injection IVPUSH 4 mg Q6H PRN Administration NAUSEA Propranolol HCl 120 mg 03/08/19 10:00 03/08/19 10:58 Inderal La - PO 120 mg DAILY RACHEL Administration Laboratory Results - last 24 hr 03/07/19 03/07/19 03/08/19 21:16 21:16 00:00 WBC 11.9 H RBC 4.49 Hgb 12.7 Hct 38.7 MCV 86.1 MCH 28.2 MCHC 32.8 RDW 14.4 Plt Count 335 MPV 8.3 Absolute Neuts (auto) 9.9 H Neutrophils % 82.6 D Lymphocytes % 10.6 D Monocytes % 6.3 Eosinophils % 0.0 D Basophils % 0.5 Nucleated RBC % 0 PT with INR INR Sodium 138 Potassium 4.1 Chloride 106 Carbon Dioxide 25 Anion Gap 7 L BUN 12.2 Creatinine 0.8 Est GFR (CKD-EPI)AfAm 82.42 Est GFR (CKD-EPI)NonAf 71.11 Random Glucose 148 H Calcium 9.2 Total Bilirubin 1.2 H AST 276 H ALT 120 H Alkaline Phosphatase 263 H Total Protein 8.0 Albumin 3.6 Lipase 545 H Urine Color Yellow Urine Appearance Clear Urine pH 7.0 D Ur Specific [place] 1.049 H Urine Protein Negative Urine Glucose (UA) Negative Urine Ketones Negative Urine Blood Negative Urine Nitrite Negative Urine Bilirubin Negative Urine Urobilinogen 1.0 Ur Leukocyte Esterase Negative Urine WBC (Auto) 0.6 Urine RBC (Auto) 2.8 Urine Casts (Auto) 0.35 U Epithel Cells (Auto) 2.7 Urine Bacteria (Auto) 30.8 Alcohol, Quantitative < 3.0 Blood Type Antibody Screen 03/08/19 03/08/19 03/08/19 06:25 06:25 06:25 WBC 14.6 H RBC 4.39 Hgb 12.2 Hct 38.4 MCV 87.5 MCH 27.8 MCHC 31.8 L RDW 14.5 Plt Count 289 MPV 9.1 Absolute Neuts (auto) 12.7 H Neutrophils % 87.2 H Lymphocytes % 6.9 L D Monocytes % 5.1 Eosinophils % 0.0 Basophils % 0.8 Nucleated RBC % 0 PT with INR 14.40 H INR 1.22 H Sodium Potassium Chloride Carbon Dioxide Anion Gap BUN Creatinine Est GFR (CKD-EPI)AfAm Est GFR (CKD-EPI)NonAf Random Glucose Calcium Total Bilirubin AST ALT Alkaline Phosphatase Total Protein Albumin Lipase Urine Color Urine Appearance Urine pH Ur Specific [place] Urine Protein Urine Glucose (UA) Urine Ketones Urine Blood Urine Nitrite Urine Bilirubin Urine Urobilinogen Ur Leukocyte Esterase Urine WBC (Auto) Urine RBC (Auto) Urine Casts (Auto) U Epithel Cells (Auto) Urine Bacteria (Auto) Alcohol, Quantitative Blood Type A NEGATIVE Antibody Screen Negative 03/08/19 06:25 WBC RBC Hgb Hct MCV MCH MCHC RDW Plt Count MPV Absolute Neuts (auto) Neutrophils % Lymphocytes % Monocytes % Eosinophils % Basophils % Nucleated RBC % PT with INR INR Sodium 139 Potassium 3.8 Chloride 104 Carbon Dioxide 27 Anion Gap 7 L BUN 8.9 Creatinine 0.8 Est GFR (CKD-EPI)AfAm 82.42 Est GFR (CKD-EPI)NonAf 71.11 Random Glucose 120 H Calcium 8.9 Total Bilirubin AST ALT Alkaline Phosphatase Total Protein Albumin Lipase Urine Color Urine Appearance Urine pH Ur Specific [place] Urine Protein Urine Glucose (UA) Urine Ketones Urine Blood Urine Nitrite Urine Bilirubin Urine Urobilinogen Ur Leukocyte Esterase Urine WBC (Auto) Urine RBC (Auto) Urine Casts (Auto) U Epithel Cells (Auto) Urine Bacteria (Auto) Alcohol, Quantitative Blood Type Antibody Screen S1 S2 RRR Lungs clear Abd- soft ,tender+RUQ no edema PLAN NPO for ERCP today surgery eval GI eval noted IV fluids pain control ID consult for antibiotics SCD for DVT prophylaxis Problem List - Problems (1) Abdominal pain Code(s): R10.9 - UNSPECIFIED ABDOMINAL PAIN Qualifiers: Abdominal location: right upper quadrant Qualified Code(s): R10.11 - Right upper quadrant pain (2) Acute cholangitis due to calculus of bile duct with obstruction Code(s): K80.33 - CALCULUS OF BILE DUCT W ACUTE CHOLANGITIS WITH OBSTRUCTION (3) Cholangitis Code(s): K83.09 - OTHER CHOLANGITIS (4) Choledocholithiasis Code(s): K80.50 - CALCULUS OF BILE DUCT W/O CHOLANGITIS OR CHOLECYST W/O OBST (5) HTN (hypertension) Code(s): I10 - ESSENTIAL (PRIMARY) HYPERTENSION Qualifiers: Hypertension type: essential hypertension Qualified Code(s): I10 - Essential (primary) hypertension
[2019-03-08] MEDS ORDERED: IOHEXOL 300 MG/ML INFUS..BTL IV ONE (13:38)
[2019-03-08] MEDS ORDERED: METOCLOPRAMIDE HCL INJECTION 10 MG/2 ML VIAL ONE (13:47)
--- NOTE | 2019-03-08 15:48 | CONSULT ---
Consult Consult Specialty:: General Surgery Referred by:: Lorie Cox Reason for Consultation:: gallstone pancreatitis, possible cholecystitis - History of Present Illness Chief Complaint: central abdominal pain, chills, nausea History of Present Illness: 78yo obese F with HTN, chronic pancreatitis (heavy EtOH use in past - quit at least 30 yrs ago), gallstones noted on imaging last year, s/p tubal ligation and left knee replacement, presented to ER yesterday with central abdominal pain radiating to epigastric and RUQ areas, associated with chills, nausea but no vomiting, no change in bowel habits, decreased urination - felt similar to her previous pancreatitis pain. She had eaten plantains for breakfast, and the pain started around 1pm. In ER, she had wbc 11.9, elevated LFTs and lipase 545. US and CT showed gallstones with mild wall thickening (noted on previous studies , thought likely related to chronic cholecystitis), no pericholecystic fluid, chronic calcific pancreatic changes, enlarged CBD and increased intrahepatic dilation. She was ordered for MRCP, admitted to medicine, given IV fluids and pain meds. Surgery was asked to assess. This morning, wbc adonis to 14.6, and she was seen by GI. Dr. Canela took her for ERCP today, performed sphincterotomy, removed an impacted stone, and was unable to sweep out additional filling defects, so left a biliary stent. She is seen and examined in bed, still rather sleepy from the procedure, with her daughter Alyson present. She states she feels much better than when she arrived, the pain is much less. She denies other recent illness. Was having formed BMs, and just voided in bathroom. She is able to answer questions, but is fairly groggy still. She admits to not having been taking her usual baby aspirin recently. Had colonoscopy/endoscopy by Dr. Canela over the summer. - History Source History Provided By: Patient Limitations to Obtaining History: No Limitations - Past Medical History Cardio/Vascular: Yes: HTN Gastrointestinal: Yes: Pancreatitis Hepatobiliary: Yes: Cholelithiasis Reproductive: Yes: Postmenopausal Psych: Yes: Anxiety Endocrine: Yes: Diabetes Mellitus (diet controlled) - Past Surgical History Past Surgical History: Yes: Colonoscopy, Joint Replacement (Left Knee), Tubal Ligation, Upper Endoscopy - Alcohol/Substance Use Hx Alcohol Use: No (heavy in past - quit 30 yrs ago) History of Substance Use: reports: None - Smoking History Smoking history: Former smoker Have you smoked in the past 12 months: No If you are a former smoker, when did you quit?: 30 YRS AGO - Social History 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 denies: Fever Eyes: denies: Blurred Vision, Recent Change in Vision HENT: denies: Difficult Swallowing, Throat Pain Neck: denies: Swollen Glands, Tenderness Cardiovascular: denies: Chest Pain, Palpitations Respiratory: denies: Cough, SOB Gastrointestinal: reports: Abdominal Pain, Nausea. denies: Constipation, Diarrhea, Vomiting Genitourinary: denies: Burning, Dysuria Musculoskeletal: reports: Other (had bilateral ribcage pain few months ago, went away). denies: Back Pain, Joint Pain, Muscle Pain Integumentary: denies: Change in Color, Rash Neurological: reports: Headache. denies: Dizziness Psychiatric: reports: Anxiety. denies: Depression Physical Exam Vital Signs: Vital Signs Temperature 99.8 F H 03/08/19 14:20 Pulse Rate 68 03/08/19 15:20 Respiratory Rate 20 03/08/19 15:20 Blood Pressure 173/76 H 03/08/19 15:20 O2 Sat by Pulse Oximetry (%) 100 03/08/19 15:20 Constitutional: Yes: No Distress, Calm, Obese Eyes: Yes: Conjunctiva Clear, EOM Intact. No: Sclera Icterus HENT: Yes: Atraumatic, Normocephalic Neck: Yes: Supple, Trachea Midline Cardiovascular: Yes: Regular Rate and Rhythm, Murmur Respiratory: Yes: Regular, CTA Bilaterally Gastrointestinal: Yes: Normal Bowel Sounds, Soft, Abdomen, Obese, Tenderness ( RUQ mild, no rebound/guarding), Tenderness, Epigastrium (mild), Other (healed small left infraumbilical scar) ...Rectal Exam: Yes: Deferred Renal/: No: CVA Tenderness - Left, CVA Tenderness - Right Musculoskeletal: No: Joint Stiffness, Joint Swelling Extremities: No: Cool, Cyanosis Edema: No Peripheral Pulses WNL: Yes Integumentary: No: Jaundice, Rash Neurological: Yes: Alert (enough to answer questions), Oriented, Lethargy ( sleepy (recent anesthesia)) Psychiatric: Yes: Alert, Oriented Labs: CBC, BMP 03/08/19 06:25 03/08/19 06:25 CMP Sodium 139 mmol/L (136-145) 03/08/19 06:25 Potassium 3.8 mmol/L (3.5-5.1) 03/08/19 06:25 Chloride 104 mmol/L (98-107) 03/08/19 06:25 Carbon Dioxide 27 mmol/L (21-32) 03/08/19 06:25 Anion Gap 7 MMOL/L (8-16) L 03/08/19 06:25 BUN 8.9 mg/dL (7-18) 03/08/19 06:25 Creatinine 0.8 mg/dL (0.55-1.3) 03/08/19 06:25 Est GFR (CKD-EPI)AfAm 82.42 03/08/19 06:25 Est GFR (CKD-EPI)NonAf 71.11 03/08/19 06:25 Random Glucose 120 mg/dL (74-106) H 03/08/19 06:25 Calcium 8.9 mg/dL (8.5-10.1) 03/08/19 06:25 Total Bilirubin 1.2 mg/dL (0.2-1) H 03/07/19 21:16 AST 276 U/L (15-37) H 03/07/19 21:16 ALT 120 U/L (13-61) H 03/07/19 21:16 Alkaline Phosphatase 263 U/L (45-117) H 03/07/19 21:16 Total Protein 8.0 g/dl (6.4-8.2) 03/07/19 21:16 Albumin 3.6 g/dl (3.4-5.0) 03/07/19 21:16 Lipase 545 U/L (73-393) H 03/07/19 21:16 INR, PTT INR 1.22 (0.83-1.09) H 03/08/19 06:25 Urine Test Results Urine Color Yellow 03/08/19 00:00 Urine Appearance Clear 03/08/19 00:00 Urine pH 7.0 (5.0-8.0) D 03/08/19 00:00 Ur Specific [place] 1.049 (1.010-1.035) H 03/08/19 00:00 Urine Protein Negative (NEGATIVE) 03/08/19 00:00 Urine Glucose (UA) Negative (NEGATIVE) 03/08/19 00:00 Urine Ketones Negative (NEGATIVE) 03/08/19 00:00 Urine Blood Negative (NEGATIVE) 03/08/19 00:00 Urine Nitrite Negative (NEGATIVE) 03/08/19 00:00 Urine Bilirubin Negative (NEGATIVE) 03/08/19 00:00 Ur Leukocyte Esterase Negative (NEGATIVE) 03/08/19 00:00 wbc up from 11.9 Imaging - Results Cat Scan: Report Reviewed, Image Reviewed (images reviewed - enlarged bile ducts , chronic pancreatic calcifications, distended gallbladder, no ascites) Ultrasound: Report Reviewed (gallstones with mild wall thickening, dilated CBD and intrahepatic ducts, no pericholecystic fluid, no cbd stones seen) MRI: Other (cancelled - ERCP already done) Problem List - Problems (1) Gallstone pancreatitis Assessment/Plan: admitted to medicine NPO except meds - continue home meds except asa generous IV fluids trend labs, replete lytes prn seen by GI, s/p ERCP today with sphincterotomy, extraction of impacted stone, stent for residual CBD filling defects after sweeping monitor for increase in lipase post-procedure will discuss timing of cholecystectomy pending lab trend and clinical exam would keep NPO except meds at least 24 hrs, and until pt is nontender pain meds prn - nonnarcotics first line (iv tylenol) discussed with Dr. Mann Code(s): K85.10 - BILIARY ACUTE PANCREATITIS WITHOUT NECROSIS OR INFECTION (2) Calculus of gallbladder and bile duct with chronic cholecystitis with obstruction Code(s): K80.65 - CALCULUS OF GB AND BILE DUCT W CHRONIC CHOLECYST W OBST (3) Acute cholangitis due to calculus of bile duct with obstruction Assessment/Plan: currently on Ceftriaxone/Flagyl ID consulted - seen and discussed with Dr. Mccollum Code(s): K80.33 - CALCULUS OF BILE DUCT W ACUTE CHOLANGITIS WITH OBSTRUCTION (4) Epigastric pain Assessment/Plan: improved Code(s): R10.13 - EPIGASTRIC PAIN (5) Chronic calcific pancreatitis Code(s): K86.1 - OTHER CHRONIC PANCREATITIS (6) HTN (hypertension) Assessment/Plan: continue propranolol Code(s): I10 - ESSENTIAL (PRIMARY) HYPERTENSION Qualifiers: Hypertension type: essential hypertension Qualified Code(s): I10 - Essential (primary) hypertension (7) Obesity due to excess calories without serious comorbidity Code(s): E66.09 - OTHER OBESITY DUE TO EXCESS CALORIES Qualifiers: Obesity classification: adult class 1 (BMI 30 - 34.9) Body mass index: BMI 32.0-32.9 Qualified Code(s): E66.09 - Other obesity due to excess calories; Z68.32 - Body mass index (BMI) 32.0-32.9, adult
[2019-03-08] MEDS ORDERED: CEFTRIAXONE 1 GM in DEXTROSE 5%-WATER - 50 ML IVPB ONE ×2 (17:04→17:21)
--- NOTE | 2019-03-08 17:12 | PN ---
Progress Note (short form) - Note Progress Note: ID consult dictated imp/reccd choledocholithiasis-s/p ercp with stent today chronic cholycystitis gallstone pancreatitis chronic pancreatitis no recent admissions no recent antibiotics no history of MDRO ceftriaxone and flagyl should be fine but surgery is switching fluids to LR will switch to ertapenem to avoid any incompatability issue d/w dr ramírez Problem List - Problems (1) Choledocholithiasis Code(s): K80.50 - CALCULUS OF BILE DUCT W/O CHOLANGITIS OR CHOLECYST W/O OBST (2) Chronic cholecystitis Code(s): K81.1 - CHRONIC CHOLECYSTITIS (3) Gallstone pancreatitis Code(s): K85.10 - BILIARY ACUTE PANCREATITIS WITHOUT NECROSIS OR INFECTION (4) Chronic calcific pancreatitis Code(s): K86.1 - OTHER CHRONIC PANCREATITIS
--- NOTE | 2019-03-08 18:24 | CONS ---
INFECTIOUS DISEASE CONSULTATION DATE OF CONSULTATION: 03/08/2019 This is a 78-year-old woman who presented to the emergency room yesterday with complaints of some nausea and abdominal discomfort. She had eaten salad that morning, and she started having abdominal pain that afternoon. It radiated to her right upper quadrant. She had 3 formed, non-bloody bowel movements. No diarrhea. She denies any fevers or chills. She has no headache, chest pain, shortness of breath. She was noted to have abnormal LFTs. She had a workup that included a CAT scan of her abdomen and pelvis and an ultrasound that showed chronic calcific pancreatitis with a dilated CBD and dilated intra- and extra-hepatic biliary tract dilatation with chronic cholecystitis. She also had chronic calcific pancreatitis. She was evaluated by GI. She was started on ceftriaxone and Flagyl this morning and was taken for ERCP which she underwent. She had multiple stones. She had a stent placed and is currently awake and alert and back at her bed. PAST MEDICAL HISTORY: Notable for hypertension, chronic pancreatitis, anxiety, diabetes. SURGICAL HISTORY: Notable for a left knee replacement. She has had a tubal ligation as well in the past. SOCIAL HISTORY: She is a former smoker, former alcohol user; both she stopped 30 years ago. There is no history of substance use. She lives alone. 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 There is no history of any recent travel. She has 5 adult children. ALLERGIES: She has no known drug allergies. MEDICATIONS AT HOME: Include Paxil, Klonopin, and Inderal. There is no history of any recent hospitalizations. Her last hospitalization was for her knee replacement which was in 2013. There is no history of any [id number]-mrhf-[id number] organisms, and she has had no recent antibiotics. FAMILY HISTORY: Unremarkable. REVIEW OF SYSTEMS: As per HPI. PHYSICAL EXAMINATION: Vital Signs: Temperature is 98.7. Pulse is 68. Blood pressure 173/68. Respiratory rate is 20. She is saturating 100%. HEENT: She is normocephalic. Her eyes are anicteric. Neck: Supple. Lungs: Clear to auscultation. Heart: Regular rate and rhythm. Abdomen: She currently has no abdominal pain and diminished bowel sounds. Extremities: Without edema. LABORATORY DATA: White count was 11.9 on admission, this morning 14.6; hemoglobin 12.2; platelets are 289. INR is 1.2. Her LFTs were notable for AST of 276, ALT of 120, alkaline phosphatase of 263, with a lipase of 545. BUN is 8 and creatinine 0.8. Urinalysis is negative, and cultures are pending. IMAGING: As previously described. In summary, this is a 78-year-old woman status post ERCP with stent today for choledocholithiasis. She has evidence of chronic cholecystitis, gallstone pancreatitis, and chronic pancreatitis. She has had no recent admissions, no recent antibiotics, and no history of multi-drug resistance. Ceftriaxone and Flagyl should be fine. With surgery, switching fluids to LR. She has minimal IV access; so, we will switch her to ertapenem to avoid any incompatibility issues. Would follow up her cultures. Case was discussed with Surgery. Jaja [id number]
[2019-03-08] MEDS: ERTAPENEM SODIUM 1 GM in SODIUM CHLORIDE 50 ML IVPB SCH (20:25)
[2019-03-08] MEDS: clonazePAM 0.5 MG TABLET PO SCH (21:16)
[2019-03-09] MEDS ORDERED: LACTATED RINGERS SOLUTION 1,000 ML/1,000 ML INFUS.BAG IV SCH ×2 (05:00→20:23)
[2019-03-09] MEDS: clonazePAM 0.5 MG TABLET PO SCH ×3 (05:29→22:00)
[2019-03-09 06:57] LABS: BASO % 0.3 % (0-2.0); EOS % 0.4 % (0-4.5); HEMATOCRIT 32.3 % (32.4-45.2); HEMOGLOBIN 10.4 GM/dL (10.7-15.3); MCH 28.1 pg (25.7-33.7); MCHC 32.2 g/dl (32.0-36.0); MEAN CELL VOLUME 87.2 fl (80-96); MEAN PLT VOLUME 8.4 fl (7.5-11.1); MONO % 5.6 % (3.8-10.2); NEUT % 84.7 % (42.8-82.8); PLATELET COUNT 235 K/MM3 (134-434); RDW 14.7 % (11.6-15.6); WHITE BLOOD COUNT 14.5 K/mm3 (4.0-10.0)
[2019-03-09 07:32] LABS: ALBUMIN 2.7 g/dl (3.4-5.0); BILIRUBIN,TOTAL 1.2 mg/dL (0.2-1); BLOOD UREA NITROGEN 9.6 mg/dL (7-18); CALCIUM 8.1 mg/dL (8.5-10.1); CREATININE 0.7 mg/dL (0.55-1.3); POTASSIUM 3.3 mmol/L (3.5-5.1)
--- NOTE | 2019-03-09 07:49 | PN ---
Progress Note, Physician History of Present Illness: GI FOLLOW UP NOTE Patient examined and case discussed with Dr Canela Patient is s/p ERCP with sphincterectomy, an impacted stone was removed, and biliary stent was placed. Labs showing downtrend in LFTs. Patient denies abdominal pain, nausea, vomiting, diarrhea. - Current Medication List Current Medications: Active Medications Acetaminophen (Ofirmev Injection -) 1,000 mg IVPB Q6H PRN PRN Reason: Pain Level 4 - 10 Clonazepam (Klonopin -) 1 mg PO TID [facility] Last Admin: 03/09/19 05:29 Dose: 1 mg Sodium Chloride (Normal Saline -) 1,000 mls @ 150 mls/hr IV ASDIR [facility] Stop: 03/10/19 15:24 Last Admin: 03/08/19 10:59 Dose: 150 mls/hr Lactated Ringer's (Lactated Ringers Solution) 1,000 ml in 1,000 mls @ 150 mls/ hr IV ASDIR [facility] Last Admin: 03/09/19 05:29 Dose: 150 mls/hr Ertapenem 1 gm/ Sodium (Chloride) 50 mls @ 100 mls/hr IVPB DAILY [facility] Last Admin: 03/08/19 20:25 Dose: 100 mls/hr Morphine Sulfate (Morphine Sulfate) 4 mg IVPUSH Q6H PRN PRN Reason: PAIN LEVEL 7 - 10 Ondansetron HCl (Zofran Injection) 4 mg IVPUSH Q6H PRN PRN Reason: NAUSEA Last Admin: 03/08/19 02:29 Dose: 4 mg Paroxetine HCl (Paxil -) 20 mg PO DAILY [facility] Propranolol HCl (Inderal La -) 120 mg PO DAILY [facility] - Objective Vital Signs: Vital Signs Temperature 99.2 F 03/09/19 06:18 Pulse Rate 85 03/09/19 06:18 Respiratory Rate 18 03/09/19 06:18 Blood Pressure 156/74 03/09/19 06:18 O2 Sat by Pulse Oximetry (%) 100 03/08/19 21:00 Constitutional: Yes: No Distress, Calm Eyes: Yes: Conjunctiva Clear HENT: Yes: Atraumatic Cardiovascular: Yes: Regular Rate and Rhythm Respiratory: Yes: Regular, CTA Bilaterally Gastrointestinal: Yes: Normal Bowel Sounds, Soft, Tenderness (mild ruq) Neurological: Yes: Alert, Oriented Psychiatric: Yes: Alert, Oriented Labs: CBC, BMP 03/09/19 06:20 03/09/19 06:20 INR, PTT INR 1.22 (0.83-1.09) H 03/08/19 06:25 <Celeste Echevarria - Last Filed: 03/09/19 07:44> - Current Medication List Current Medications: Active Medications Acetaminophen (Ofirmev Injection -) 1,000 mg IVPB Q6H PRN PRN Reason: Pain Level 4 - 10 Clonazepam (Klonopin -) 1 mg PO TID [facility] Last Admin: 03/09/19 15:23 Dose: 1 mg Lactated Ringer's (Lactated Ringers Solution) 1,000 ml in 1,000 mls @ 150 mls/ hr IV ASDIR [facility] Last Admin: 03/09/19 05:29 Dose: 150 mls/hr Ertapenem 1 gm/ Sodium (Chloride) 50 mls @ 100 mls/hr IVPB DAILY [facility] Last Admin: 03/09/19 09:47 Dose: 100 mls/hr Potassium Phosphate 30 mm/ (Dextrose) 510 mls @ 63.75 mls/hr IVPB ONCE ONE Stop: 03/09/19 20:59 Last Admin: 03/09/19 15:24 Dose: 63.75 mls/hr Morphine Sulfate (Morphine Sulfate) 4 mg IVPUSH Q6H PRN PRN Reason: PAIN LEVEL 7 - 10 Ondansetron HCl (Zofran Injection) 4 mg IVPUSH Q6H PRN PRN Reason: NAUSEA Last Admin: 03/08/19 02:29 Dose: 4 mg Paroxetine HCl (Paxil -) 20 mg PO DAILY [facility] Last Admin: 03/09/19 09:45 Dose: 20 mg Propranolol HCl (Inderal La -) 120 mg PO DAILY [facility] Last Admin: 03/09/19 09:45 Dose: 120 mg - Objective Vital Signs: Vital Signs Temperature 98.3 F 03/09/19 13:48 Pulse Rate 63 03/09/19 13:48 Respiratory Rate 20 03/09/19 13:48 Blood Pressure 171/82 H 03/09/19 13:48 O2 Sat by Pulse Oximetry (%) 100 03/09/19 08:32 Labs: CBC, BMP 03/09/19 06:20 03/09/19 06:20 INR, PTT INR 1.22 (0.83-1.09) H 03/08/19 06:25 <Gigi Canela - Last Filed: 03/09/19 16:21> Problem List - Problems (1) Choledocholithiasis Assessment/Plan: -S/p ERCP with biliary stent placement -IV hydration -AST 52, ALT 55, Alk Phos 186 -continue to monitor LFTs Code(s): K80.50 - CALCULUS OF BILE DUCT W/O CHOLANGITIS OR CHOLECYST W/O OBST (2) Chronic calcific pancreatitis Code(s): K86.1 - OTHER CHRONIC PANCREATITIS (3) Chronic cholecystitis Assessment/Plan: -Surgery on board -IV hydration -Lipase 104 -pain control Code(s): K81.1 - CHRONIC CHOLECYSTITIS <Celeste Echevarria - Last Filed: 03/09/19 07:44> - Problems (1) Cholangitis Code(s): K83.09 - OTHER CHOLANGITIS (2) Chronic cholecystitis Code(s): K81.1 - CHRONIC CHOLECYSTITIS (3) Gallstone pancreatitis Code(s): K85.10 - BILIARY ACUTE PANCREATITIS WITHOUT NECROSIS OR INFECTION <Gigi Canela - Last Filed: 03/09/19 16:21>
[2019-03-09] MEDS ORDERED: PARoxetine HCL 10 MG TABLET ONE (09:03)
[2019-03-09] MEDS ORDERED: PT OWN MED DRAWER 7, Y5N ONE ×4 (09:04→22:22)
[2019-03-09] MEDS: PARoxetine HCL 20 MG TABLET PO SCH (09:45)
[2019-03-09] MEDS: ERTAPENEM SODIUM 1 GM in SODIUM CHLORIDE 50 ML IVPB SCH (09:47)
[2019-03-09] MEDS ORDERED: CEFTRIAXONE 2 GM in DEXTROSE 5%-WATER 100 ML IVPB SCH (10:00)
--- NOTE | 2019-03-09 12:30 | PN ---
Progress Note (short form) - Note Progress Note: s/p ERCP and removal of stone, sphincterectomy NPO wants to eat has pain in abdomen but not as severe Vital Signs - 24 hr 03/08/19 03/08/19 03/08/19 14:20 14:35 14:50 Temperature 99.8 F H Pulse Rate 82 73 71 Respiratory 16 18 18 Rate Blood Pressure 187/78 H 182/81 H 173/81 H O2 Sat by Pulse 97 99 99 Oximetry (%) 03/08/19 03/08/19 03/08/19 15:00 15:05 15:20 Temperature 98.7 F Pulse Rate 70 67 68 Respiratory 18 20 20 Rate Blood Pressure 142/68 176/86 H 173/68 H O2 Sat by Pulse 99 100 Oximetry (%) 03/08/19 03/08/19 03/08/19 18:12 21:00 21:46 Temperature 98.7 F Pulse Rate 65 Respiratory 18 18 18 Rate Blood Pressure 167/76 O2 Sat by Pulse 100 Oximetry (%) 03/08/19 03/09/19 03/09/19 21:51 01:55 06:18 Temperature 98.4 F 99.8 F H 99.2 F Pulse Rate 72 75 85 Respiratory 18 18 18 Rate Blood Pressure 140/64 150/84 156/74 O2 Sat by Pulse Oximetry (%) 03/09/19 03/09/19 08:32 09:51 Temperature 98.4 F Pulse Rate 74 Respiratory 18 18 Rate Blood Pressure 146/70 O2 Sat by Pulse 100 Oximetry (%) Current Medications Generic Name Dose Route Start Last Admin Trade Name Freq PRN Reason Stop Dose Admin Acetaminophen 1,000 mg 03/08/19 17:15 Ofirmev Injection - IVPB Q6H PRN Pain Level 4 - 10 Clonazepam 1 mg 03/08/19 22:00 03/09/19 05:29 Klonopin - PO 1 mg TID RACHEL Administration Sodium Chloride 1,000 mls @ 150 mls/hr 03/08/19 08:45 03/08/19 10:59 Normal Saline - IV 03/10/19 15:24 150 mls/hr ASDIR RACHEL Administration Lactated Ringer's 1,000 ml in 1,000 mls @ 150 mls/hr 03/09/19 05:00 03/09/19 05:29 Lactated Ringers Solution IV 150 mls/hr ASDIR [facility]ACHEL Administration Ertapenem 1 gm/ Sodium 50 mls @ 100 mls/hr 03/08/19 17:45 03/09/19 09:47 Chloride IVPB 100 mls/hr DAILY RACHEL Administration Potassium Chloride 10 meq in 100 mls @ 100 mls/hr 03/09/19 12:30 Potassium Chloride 10 Meq Premix Ivpb - IVPB 03/09/19 14:29 Q60M RACHEL Morphine Sulfate 4 mg 03/08/19 06:00 Morphine Sulfate IVPUSH Q6H PRN PAIN LEVEL 7 - 10 Ondansetron HCl 4 mg 03/08/19 03:00 03/08/19 02:29 Zofran Injection IVPUSH 4 mg Q6H PRN Administration NAUSEA Paroxetine HCl 20 mg 03/09/19 10:00 03/09/19 09:45 Paxil - PO 20 mg DAILY RACHEL Administration Propranolol HCl 120 mg 03/09/19 10:00 03/09/19 09:45 Inderal La - PO 120 mg DAILY RACHEL Administration Laboratory Results - last 24 hr 03/09/19 03/09/19 06:20 06:20 WBC 14.5 H RBC 3.70 Hgb 10.4 L Hct 32.3 L D MCV 87.2 MCH 28.1 MCHC 32.2 RDW 14.7 Plt Count 235 MPV 8.4 Absolute Neuts (auto) 12.3 H Neutrophils % 84.7 H Lymphocytes % 9.0 D Monocytes % 5.6 Eosinophils % 0.4 D Basophils % 0.3 Nucleated RBC % 0 Sodium 144 Potassium 3.3 L Chloride 111 H Carbon Dioxide 26 Anion Gap 7 L BUN 9.6 Creatinine 0.7 Est GFR (CKD-EPI)AfAm 96.86 Est GFR (CKD-EPI)NonAf 83.57 Random Glucose 87 Calcium 8.1 L Phosphorus 2.0 L Magnesium 2.0 Total Bilirubin 1.2 H AST 52 H ALT 55 Alkaline Phosphatase 186 H Total Protein 6.0 L Albumin 2.7 L Lipase 104 S1 S2 RRR Lungs clear Abd-soft, obese, tender right upper quadrant no edema PLAN Keep NPO ID eval noted IV fluids iv antibiotics replacing electrolytes LFT trending down will need cholecystectomy Problem List - Problems (1) Abdominal pain Code(s): R10.9 - UNSPECIFIED ABDOMINAL PAIN Qualifiers: Abdominal location: right upper quadrant Qualified Code(s): R10.11 - Right upper quadrant pain (2) Acute cholangitis due to calculus of bile duct with obstruction Code(s): K80.33 - CALCULUS OF BILE DUCT W ACUTE CHOLANGITIS WITH OBSTRUCTION (3) Calculus of gallbladder and bile duct with chronic cholecystitis with obstruction Code(s): K80.65 - CALCULUS OF GB AND BILE DUCT W CHRONIC CHOLECYST W OBST (4) Choledocholithiasis Code(s): K80.50 - CALCULUS OF BILE DUCT W/O CHOLANGITIS OR CHOLECYST W/O OBST (5) HTN (hypertension) Code(s): I10 - ESSENTIAL (PRIMARY) HYPERTENSION Qualifiers: Hypertension type: essential hypertension Qualified Code(s): I10 - Essential (primary) hypertension
[2019-03-09] MEDS: SODIUM CHLORIDE 1,000 ML IV SCH (12:40)
[2019-03-09] MEDS ORDERED: POTASSIUM PHOSPHATE 30 MM in DEXTROSE 5%-WATER - 500 ML IVPB ONE (13:00)
[2019-03-09] MEDS: KCL 10 MEQ IVPB 10 MEQ/100 ML INFUS.BAG IVPB SCH (13:12)
--- NOTE | 2019-03-09 14:43 | PN ---
Progress Note, Physician Chief Complaint: s/p ERCP post op day one History of Present Illness: under general anesthesia - Current Medication List Current Medications: Active Medications Acetaminophen (Ofirmev Injection -) 1,000 mg IVPB Q6H PRN PRN Reason: Pain Level 4 - 10 Clonazepam (Klonopin -) 1 mg PO TID [facility] Last Admin: 03/09/19 05:29 Dose: 1 mg Lactated Ringer's (Lactated Ringers Solution) 1,000 ml in 1,000 mls @ 150 mls/ hr IV ASDIR [facility] Last Admin: 03/09/19 05:29 Dose: 150 mls/hr Ertapenem 1 gm/ Sodium (Chloride) 50 mls @ 100 mls/hr IVPB DAILY [facility] Last Admin: 03/09/19 09:47 Dose: 100 mls/hr Potassium Phosphate 30 mm/ (Dextrose) 510 mls @ 63.75 mls/hr IVPB ONCE ONE Stop: 03/09/19 20:59 Morphine Sulfate (Morphine Sulfate) 4 mg IVPUSH Q6H PRN PRN Reason: PAIN LEVEL 7 - 10 Ondansetron HCl (Zofran Injection) 4 mg IVPUSH Q6H PRN PRN Reason: NAUSEA Last Admin: 03/08/19 02:29 Dose: 4 mg Paroxetine HCl (Paxil -) 20 mg PO DAILY [facility] Last Admin: 03/09/19 09:45 Dose: 20 mg Propranolol HCl (Inderal La -) 120 mg PO DAILY [facility] Last Admin: 03/09/19 09:45 Dose: 120 mg - Objective Vital Signs: Vital Signs Temperature 98.3 F 03/09/19 13:48 Pulse Rate 63 03/09/19 13:48 Respiratory Rate 20 03/09/19 13:48 Blood Pressure 171/82 H 03/09/19 13:48 O2 Sat by Pulse Oximetry (%) 100 03/09/19 08:32 Constitutional: Yes: Well Nourished Cardiovascular: Yes: WNL Respiratory: Yes: WNL Gastrointestinal: Yes: WNL Labs: CBC, BMP 03/09/19 06:20 03/09/19 06:20 INR, PTT INR 1.22 (0.83-1.09) H 03/08/19 06:25 Assessment/Plan No adverse effect of anesthetic, pain controlled, dept of anesthesiology will sign off care at this time
--- NOTE | 2019-03-09 20:18 | PN ---
Progress Note, Physician History of Present Illness: Pt with chronic pancreatitis, acute gallstone pancreatitis, cholangitis from stones in CBD s/p ERCP with sphincterotomy, removal of impacted stone, and biliary stenting for residual filling defects in cbd She is seen and examined sitting up in bed, with son and other friends and family present. Reports feeling much better, no pain, hungry. She is on antibiotics per ID, IV fluids, and has been voiding well. LFTs coming down, lipase normal today, wbc still elevated. - Current Medication List Current Medications: Active Medications Acetaminophen (Ofirmev Injection -) 1,000 mg IVPB Q6H PRN PRN Reason: Pain Level 4 - 10 Clonazepam (Klonopin -) 1 mg PO TID [facility] Last Admin: 03/09/19 15:23 Dose: 1 mg Lactated Ringer's (Lactated Ringers Solution) 1,000 ml in 1,000 mls @ 150 mls/ hr IV ASDIR [facility] Last Admin: 03/09/19 05:29 Dose: 150 mls/hr Ertapenem 1 gm/ Sodium (Chloride) 50 mls @ 100 mls/hr IVPB DAILY [facility] Last Admin: 03/09/19 09:47 Dose: 100 mls/hr Potassium Phosphate 30 mm/ (Dextrose) 510 mls @ 63.75 mls/hr IVPB ONCE ONE Stop: 03/09/19 20:59 Last Admin: 03/09/19 15:24 Dose: 63.75 mls/hr Morphine Sulfate (Morphine Sulfate) 4 mg IVPUSH Q6H PRN PRN Reason: PAIN LEVEL 7 - 10 Ondansetron HCl (Zofran Injection) 4 mg IVPUSH Q6H PRN PRN Reason: NAUSEA Last Admin: 03/08/19 02:29 Dose: 4 mg Paroxetine HCl (Paxil -) 20 mg PO DAILY [facility] Last Admin: 03/09/19 09:45 Dose: 20 mg Propranolol HCl (Inderal La -) 120 mg PO DAILY [facility] Last Admin: 03/09/19 09:45 Dose: 120 mg - Objective Vital Signs: Vital Signs Temperature 98.4 F 03/09/19 19:35 Pulse Rate 74 03/09/19 19:35 Respiratory Rate 20 03/09/19 19:35 Blood Pressure 176/96 H 03/09/19 19:35 O2 Sat by Pulse Oximetry (%) 100 03/09/19 08:32 Constitutional: Yes: No Distress, Calm, Obese Eyes: Yes: Conjunctiva Clear, EOM Intact. No: Sclera Icterus HENT: Yes: Atraumatic, Normocephalic Gastrointestinal: Yes: Soft, Abdomen, Obese. No: Tenderness, Tenderness, Epigastrium Extremities: No: Cool, Cyanosis Integumentary: No: Jaundice, Rash Neurological: Yes: Alert, Oriented Labs: CBC, BMP 03/09/19 06:20 03/09/19 06:20 CMP Sodium 144 mmol/L (136-145) 03/09/19 06:20 Potassium 3.3 mmol/L (3.5-5.1) L 03/09/19 06:20 Chloride 111 mmol/L (98-107) H 03/09/19 06:20 Carbon Dioxide 26 mmol/L (21-32) 03/09/19 06:20 Anion Gap 7 MMOL/L (8-16) L 03/09/19 06:20 BUN 9.6 mg/dL (7-18) 03/09/19 06:20 Creatinine 0.7 mg/dL (0.55-1.3) 03/09/19 06:20 Est GFR (CKD-EPI)AfAm 96.86 03/09/19 06:20 Est GFR (CKD-EPI)NonAf 83.57 03/09/19 06:20 Random Glucose 87 mg/dL (74-106) 03/09/19 06:20 Calcium 8.1 mg/dL (8.5-10.1) L 03/09/19 06:20 Phosphorus 2.0 mg/dL (2.5-4.9) L 03/09/19 06:20 Magnesium 2.0 mg/dL (1.8-2.4) 03/09/19 06:20 Total Bilirubin 1.2 mg/dL (0.2-1) H 03/09/19 06:20 AST 52 U/L (15-37) H 03/09/19 06:20 ALT 55 U/L (13-61) 03/09/19 06:20 Alkaline Phosphatase 186 U/L (45-117) H 03/09/19 06:20 Total Protein 6.0 g/dl (6.4-8.2) L 03/09/19 06:20 Albumin 2.7 g/dl (3.4-5.0) L 03/09/19 06:20 Lipase 104 U/L (73-393) 03/09/19 06:20 [facility] being repleted Problem List - Problems (1) Gallstone pancreatitis Assessment/Plan: POD1 s/p ERCP with sphincterotomy, extraction of impacted stone, stent for residual CBD filling defects after sweeping NPO except meds - continue home meds except asa generous IV fluids - will decrease a little trend labs, replete lytes prn no post-procedure pancreatitis exacerbation pain meds prn - nonnarcotics first line (iv tylenol) Discussed with patient risks, benefits and alternatives of laparoscopic possible open cholecystectomy, including but not limited to bleeding, infection , injury to adjacent structures, bile leak or ductal injury, intraabdominal abscess, incisional hernia, need for further procedures, ; alternatives include antibiotics with delayed or no surgery - risks of this include recurrence of pancreatitis, cholangitis, cholecystitis, sepsis and consequences. Patient desires to proceed with operation - will take to OR in am for above. Informed consent signed for same. Plan is for surgery 8am Fri 03/10. Send am antibiotic to OR with patient. Anticipate resuming po postop. Code(s): K85.10 - BILIARY ACUTE PANCREATITIS WITHOUT NECROSIS OR INFECTION (2) Calculus of gallbladder and bile duct with chronic cholecystitis with obstruction Code(s): K80.65 - CALCULUS OF GB AND BILE DUCT W CHRONIC CHOLECYST W OBST (3) Acute cholangitis due to calculus of bile duct with obstruction Assessment/Plan: currently on Ertapenem per ID Code(s): K80.33 - CALCULUS OF BILE DUCT W ACUTE CHOLANGITIS WITH OBSTRUCTION (4) Epigastric pain Assessment/Plan: resolved Code(s): R10.13 - EPIGASTRIC PAIN (5) Chronic calcific pancreatitis Code(s): K86.1 - OTHER CHRONIC PANCREATITIS (6) HTN (hypertension) Assessment/Plan: continue propranolol Code(s): I10 - ESSENTIAL (PRIMARY) HYPERTENSION Qualifiers: Hypertension type: essential hypertension Qualified Code(s): I10 - Essential (primary) hypertension (7) Obesity due to excess calories without serious comorbidity Code(s): E66.09 - OTHER OBESITY DUE TO EXCESS CALORIES Qualifiers: Obesity classification: adult class 1 (BMI 30 - 34.9) Body mass index: BMI 32.0-32.9 Qualified Code(s): E66.09 - Other obesity due to excess calories; Z68.32 - Body mass index (BMI) 32.0-32.9, adult
[2019-03-09] MEDS: ACETAMINOPHEN 1000 MG/100 ML VIAL (NON FORMULARY) IVPB PRN (22:44)
[2019-03-10] MEDS: clonazePAM 0.5 MG TABLET PO SCH ×3 (05:01→21:28)
[2019-03-10 07:01] LABS: BASO % 1.2 % (0-2.0); EOS % 4.5 % (0-4.5); HEMATOCRIT 34.5 % (32.4-45.2); HEMOGLOBIN 11.5 GM/dL (10.7-15.3); LYMPH % 13.7 % (8-40); MCH 28.9 pg (25.7-33.7); MCHC 33.4 g/dl (32.0-36.0); MEAN CELL VOLUME 86.5 fl (80-96); MEAN PLT VOLUME 9.2 fl (7.5-11.1); MONO % 4.9 % (3.8-10.2); NEUT % 75.7 % (42.8-82.8); PLATELET COUNT 293 K/MM3 (134-434); RBC 3.99 M/mm3 (3.60-5.2); RDW 14.7 % (11.6-15.6); WHITE BLOOD COUNT 14.3 K/mm3 (4.0-10.0)
[2019-03-10] MEDS ORDERED: BUPIVACAINE HCL/PF 0.5% (5 MG/ML) 30 ML VIAL IJ ONE ×2 (07:19)
--- NOTE | 2019-03-10 07:30 | PN ---
Progress Note, Physician History of Present Illness: GI FOLLOW UP NOTE Patient examined and case discussed with Dr Canela Patient is s/p ERCP with sphincterectomy, an impacted stone was removed, and biliary stent was placed. Patient is NPO after midnight for cholecystectomy today. Labs show leukocytosis with WBC 14.3. Denies abdominal pain, nausea, vomiting, diarrhea, rectal bleeding or melena. - Current Medication List Current Medications: Active Medications Acetaminophen (Ofirmev Injection -) 1,000 mg IVPB Q6H PRN PRN Reason: Pain Level 4 - 10 Last Admin: 03/09/19 22:44 Dose: 1,000 mg Clonazepam (Klonopin -) 1 mg PO TID [facility] Last Admin: 03/10/19 05:01 Dose: 1 mg Ertapenem 1 gm/ Sodium (Chloride) 50 mls @ 100 mls/hr IVPB DAILY [facility] Last Admin: 03/09/19 09:47 Dose: 100 mls/hr Lactated Ringer's (Lactated Ringers Solution) 1,000 ml in 1,000 mls @ 100 mls/ hr IV ASDIR [facility] Last Admin: 03/09/19 20:54 Dose: 100 mls/hr Morphine Sulfate (Morphine Sulfate) 4 mg IVPUSH Q6H PRN PRN Reason: PAIN LEVEL 7 - 10 Ondansetron HCl (Zofran Injection) 4 mg IVPUSH Q6H PRN PRN Reason: NAUSEA Last Admin: 03/08/19 02:29 Dose: 4 mg Paroxetine HCl (Paxil -) 20 mg PO DAILY [facility] Last Admin: 03/09/19 09:45 Dose: 20 mg Propranolol HCl (Inderal La -) 120 mg PO DAILY [facility] Last Admin: 03/09/19 09:45 Dose: 120 mg - Objective Vital Signs: Vital Signs Temperature 98.0 F 03/10/19 04:51 Pulse Rate 72 03/10/19 04:51 Respiratory Rate 18 03/10/19 04:51 Blood Pressure 158/72 03/10/19 04:51 O2 Sat by Pulse Oximetry (%) 100 03/09/19 21:00 Constitutional: Yes: No Distress, Calm Eyes: Yes: Conjunctiva Clear HENT: Yes: Atraumatic Cardiovascular: Yes: Regular Rate and Rhythm Respiratory: Yes: Regular, CTA Bilaterally Gastrointestinal: Yes: Normal Bowel Sounds, Soft Neurological: Yes: Alert, Oriented Psychiatric: Yes: Alert, Oriented Labs: CBC, BMP 03/10/19 06:25 INR, PTT INR 1.22 (0.83-1.09) H 03/08/19 06:25 Problem List - Problems (1) Choledocholithiasis Assessment/Plan: -S/p ERCP with biliary stent placement -IV hydration -LFTs showing downtrend -continue to monitor LFTs Code(s): K80.50 - CALCULUS OF BILE DUCT W/O CHOLANGITIS OR CHOLECYST W/O OBST (2) Chronic calcific pancreatitis Code(s): K86.1 - OTHER CHRONIC PANCREATITIS (3) Chronic cholecystitis Assessment/Plan: -Surgery on board -IV hydration -Lipase 104 -pain control -NPO -for cholecystectomy this AM Code(s): K81.1 - CHRONIC CHOLECYSTITIS
[2019-03-10] MEDS: KCL 10 MEQ IVPB 10 MEQ/100 ML INFUS.BAG IVPB SCH (07:45)
[2019-03-10] MEDS ORDERED: ROCURONIUM BROMIDE 50 MG/5 ML SYRINGE ONE (07:56)
[2019-03-10] MEDS ORDERED: LIDOCAINE HCL/PF 2% SDV 5ML VIAL ONE (07:56)
[2019-03-10] MEDS ORDERED: PROPOFOL 20 ML ONE ×2 (07:56)
[2019-03-10] MEDS ORDERED: MIDAZOLAM HCL 2 MG/2 ML SINGLE DOSE VIAL ONE (07:57)
[2019-03-10 08:37] LABS: ALBUMIN 2.9 g/dl (3.4-5.0); ALK PHOS 190 U/L (45-117); BLOOD UREA NITROGEN 6.2 mg/dL (7-18); CALCIUM 8.9 mg/dL (8.5-10.1); CHLORIDE 107 mmol/L (98-107); CO2 26 mmol/L (21-32); CREATININE 0.7 mg/dL (0.55-1.3); GLUCOSE,RANDOM 81 mg/dL (74-106); SGPT/ALT 46 U/L (13-61); SODIUM 141 mmol/L (136-145); TOT PROT 7.2 g/dl (6.4-8.2)
[2019-03-10] MEDS ORDERED: NEOSTIGMINE METHYLSULFATE 0.5 MG/ML - 10 ML MDV ONE (09:05)
[2019-03-10] MEDS ORDERED: GLYCOPYRROLATE 0.2 MG/1 ML VIAL ONE (09:05)
[2019-03-10] MEDS ORDERED: DEXAMETHASONE SOD PHOSPHATE 4 MG/1 ML VIAL ONE (09:05)
--- NOTE | 2019-03-10 09:27 | PN ---
Progress Note (short form) - Note Progress Note: s/p ERCP and removal of stone, sphincterectomy went for cholecystectomy today will follow. Vital Signs Temp 98.0 F 03/10/19 04:51 Pulse 72 03/10/19 04:51 Resp 18 03/10/19 04:51 BP 158/72 03/10/19 04:51 Pulse Ox 100 03/09/19 21:00 Intake & Output 03/09/19 03/09/19 03/10/19 11:59 23:59 11:59 Intake Total 400 1200 1200 Output Total 0 Balance 400 1200 1200 Intake: IV 198 864 [id number] LACTATED RINGERS SOLUTION 1200 1,000 ml In 1,000 ml @ 100 mls/hr IV ASDIR [facility] Rx#:[id number] LACTATED RINGERS SOLUTION 400 700 1,000 ml In 1,000 ml @ 150 mls/hr IV ASDIR [facility] Rx#:[id number] IVPB 500 Oral 0 0 Output: Estimated Blood Loss 0 Other: Voiding Method Toilet Toilet Toilet # Unmeasured Voids Void 1 6 Bowel Movement 1 Yes # Bowel Movements 1 Active Medications Acetaminophen (Ofirmev Injection -) 1,000 mg IVPB Q6H PRN PRN Reason: Pain Level 4 - 10 Last Admin: 03/09/19 22:44 Dose: 1,000 mg Clonazepam (Klonopin -) 1 mg PO TID [facility] Last Admin: 03/10/19 05:01 Dose: 1 mg Ertapenem 1 gm/ Sodium (Chloride) 50 mls @ 100 mls/hr IVPB DAILY [facility] Last Admin: 03/09/19 09:47 Dose: 100 mls/hr Lactated Ringer's (Lactated Ringers Solution) 1,000 ml in 1,000 mls @ 100 mls/ hr IV ASDIR [facility] Last Admin: 03/09/19 20:54 Dose: 100 mls/hr Morphine Sulfate (Morphine Sulfate) 4 mg IVPUSH Q6H PRN PRN Reason: PAIN LEVEL 7 - 10 Ondansetron HCl (Zofran Injection) 4 mg IVPUSH Q6H PRN PRN Reason: NAUSEA Last Admin: 03/08/19 02:29 Dose: 4 mg Paroxetine HCl (Paxil -) 20 mg PO DAILY [facility] Last Admin: 03/09/19 09:45 Dose: 20 mg Propranolol HCl (Inderal La -) 120 mg PO DAILY [facility] Last Admin: 03/09/19 09:45 Dose: 120 mg CBC, BMP 03/10/19 06:25 03/10/19 06:25 CMP Sodium 141 mmol/L (136-145) 03/10/19 06:25 Potassium TNP 03/10/19 06:25 Chloride 107 mmol/L (98-107) 03/10/19 06:25 Carbon Dioxide 26 mmol/L (21-32) 03/10/19 06:25 Anion Gap No Result Required. 03/10/19 06:25 BUN 6.2 mg/dL (7-18) L 03/10/19 06:25 Creatinine 0.7 mg/dL (0.55-1.3) 03/10/19 06:25 Est GFR (CKD-EPI)AfAm 96.86 03/10/19 06:25 Est GFR (CKD-EPI)NonAf 83.57 03/10/19 06:25 Random Glucose 81 mg/dL (74-106) 03/10/19 06:25 Calcium 8.9 mg/dL (8.5-10.1) 03/10/19 06:25 Phosphorus 2.0 mg/dL (2.5-4.9) L 03/09/19 06:20 Magnesium 2.0 mg/dL (1.8-2.4) 03/09/19 06:20 Total Bilirubin 1.0 mg/dL (0.2-1) 03/10/19 06:25 AST TNP 03/10/19 06:25 ALT 46 U/L (13-61) 03/10/19 06:25 Alkaline Phosphatase 190 U/L (45-117) H 03/10/19 06:25 Total Protein 7.2 g/dl (6.4-8.2) 03/10/19 06:25 Albumin 2.9 g/dl (3.4-5.0) L 03/10/19 06:25 Lipase 104 U/L (73-393) 03/09/19 06:20 Hepatic Panel Total Bilirubin 1.0 mg/dL (0.2-1) 03/10/19 06:25 AST TNP 03/10/19 06:25 ALT 46 U/L (13-61) 03/10/19 06:25 Alkaline Phosphatase 190 U/L (45-117) H 03/10/19 06:25 Albumin 2.9 g/dl (3.4-5.0) L 03/10/19 06:25 Problem List - Problems (1) Acute cholangitis due to calculus of bile duct with obstruction Code(s): K80.33 - CALCULUS OF BILE DUCT W ACUTE CHOLANGITIS WITH OBSTRUCTION (2) Cholangitis Code(s): K83.09 - OTHER CHOLANGITIS
[2019-03-10] MEDS ORDERED: BENZOIN TINCTURE SWABSTICK TP ONE (09:44)
--- NOTE | 2019-03-10 10:05 | SURG ---
Surgery Material Attendant Note Material Attendant: Zhang Moss PA-C Date of Service: 03/10/19 Diagnosis: Acute gallstone pancreatitis, cholangitis from stones in CBD Procedure: (prior to lap homer, patient had ercp with sbd stone extraction and stent deployment) Laprascopic Cholecystectomy I was present for the entirety of the operative procedure. For further detail, please refer to operative report. Visit type - Case Type Case Type: ED Admission - Emergency Emergency Visit: Yes ED Registration Date: 03/08/19 Care time: The patient presented to the Emergency Department on the above date and was hospitalized for further evaluation of their emergent condition. - New patient This patient is new to me today: Yes Date on this admission: 03/10/19
[2019-03-10] MEDS ORDERED: ACETAMINOPHEN INJECTION 100 ML IVPB ONE (10:19)
[2019-03-10] MEDS: ACETAMINOPHEN 1000 MG/100 ML VIAL (NON FORMULARY) IVPB PRN (10:20)
--- NOTE | 2019-03-10 10:20 | OP ---
Operative Note - Note: Operative Date: 03/10/19 Pre-Operative Diagnosis: gallstone pancreatitis, chronic cholecystitis Operation: laparoscopic cholecystectomy Findings: critical view identified; multiple stones in gallbladder, one milked back from cystic duct prior to clipping; edematous wall Post-Operative Diagnosis: Same as Pre-op Surgeon: Jose Avendano Expressive Art Therapist: Zhang Moss Anesthesiologist/RESIDENT CARE ASSOCIATE: Keshia Bhatt Anesthesia: General, Local (20ml 0.5% marcaine) Specimens Removed: gallbladder to pathology Estimated Blood Loss (mls): 15 Fluid Volume Replaced (mls): 700 (crystalloid) Operative Report Dictated: Yes
[2019-03-10] MEDS ORDERED: ONDANSETRON 4 MG/2 ML VIAL IVPUSH PRN (10:31)
[2019-03-10] MEDS: ERTAPENEM SODIUM 1 GM in SODIUM CHLORIDE 50 ML IVPB SCH (12:26)
[2019-03-10] MEDS: PARoxetine HCL 20 MG TABLET PO SCH (12:26)
[2019-03-10] MEDS: LACTATED RINGERS SOLUTION 1,000 ML/1,000 ML INFUS.BAG IV SCH (12:52)
[2019-03-10] MEDS: IBUPROFEN 600 MG TABLET (FP) PO SCH ×2 (14:13→20:02)
[2019-03-10] MEDS ORDERED: IBUPROFEN 600 MG TABLET (FP) PO SCH (15:00)
[2019-03-10] MEDS ORDERED: KETOROLAC TROMETHAMINE 30 MG/1 ML VIAL IVPUSH SCH (18:00)
[2019-03-10] MEDS ORDERED: ACETAMINOPHEN 325 MG TABLET (FP) PO SCH (18:00)
[2019-03-10] MEDS: ACETAMINOPHEN 325 MG TABLET (FP) PO SCH (18:06)
[2019-03-11] MEDS: ACETAMINOPHEN 325 MG TABLET (FP) PO SCH ×4 (00:24→18:28)
[2019-03-11] MEDS: IBUPROFEN 600 MG TABLET (FP) PO SCH ×4 (03:48→22:00)
[2019-03-11] MEDS: LACTATED RINGERS SOLUTION 1,000 ML/1,000 ML INFUS.BAG IV SCH ×2 (03:52→09:30)
[2019-03-11] MEDS: clonazePAM 0.5 MG TABLET PO SCH ×3 (06:42→22:05)
[2019-03-11] MEDS: PARoxetine HCL 20 MG TABLET PO SCH (09:29)
[2019-03-11] MEDS: ERTAPENEM SODIUM 1 GM in SODIUM CHLORIDE 50 ML IVPB SCH (09:30)
--- NOTE | 2019-03-11 10:46 | PN ---
Progress Note (short form) - Note Progress Note: Events noted POD #1 - lap homer ate breakfast without any issues she ambulates with walker -- needs one person assist had a bm today Vital Signs - 24 hr 03/10/19 03/10/19 03/10/19 10:45 11:00 11:15 Temperature Pulse Rate 72 68 67 Respiratory 18 20 15 Rate Blood Pressure 178/80 H 174/80 H 164/85 O2 Sat by Pulse 96 97 97 Oximetry (%) 03/10/19 03/10/19 03/10/19 11:30 11:40 12:00 Temperature 98.8 F 98.7 F Pulse Rate 68 70 59 L Respiratory 16 18 20 Rate Blood Pressure 155/82 160/80 164/75 O2 Sat by Pulse 97 97 Oximetry (%) 03/10/19 03/10/19 03/10/19 14:17 21:00 22:00 Temperature 98.7 F 99.0 F Pulse Rate 59 L 62 Respiratory 20 20 20 Rate Blood Pressure 155/71 O2 Sat by Pulse 98 Oximetry (%) 03/11/19 03/11/19 03/11/19 06:00 08:51 08:55 Temperature 98.7 F 98.7 F Pulse Rate 61 61 Respiratory 19 19 20 Rate Blood Pressure 158/69 158/69 O2 Sat by Pulse 98 Oximetry (%) Current Medications Generic Name Dose Route Start Last Admin Trade Name Freq PRN Reason Stop Dose Admin Acetaminophen 650 mg 03/10/19 18:00 03/11/19 06:41 Tylenol - PO 650 mg Q6H [facility] Administration Clonazepam 1 mg 03/10/19 14:00 03/11/19 06:42 Klonopin - PO 1 mg TID [facility] Administration Ertapenem 1 gm/ Sodium 50 mls @ 100 mls/hr 03/11/19 10:00 03/11/19 09:30 Chloride IVPB 100 mls/hr DAILY [facility] Administration Lactated Ringer's 1,000 ml in 1,000 mls @ 100 mls/hr 03/10/19 10:31 03/11/19 09:30 Lactated Ringers Solution IV 100 mls/hr ASDIR [facility] Administration Ibuprofen 600 mg 03/10/19 15:00 03/11/19 09:29 Motrin - PO 600 mg Q6H [facility] Administration Ondansetron HCl 4 mg 03/10/19 10:31 Zofran Injection IVPUSH Q6H PRN NAUSEA Paroxetine HCl 20 mg 03/11/19 10:00 03/11/19 09:29 Paxil - PO 20 mg DAILY [facility] Administration Propranolol HCl 120 mg 03/11/19 10:00 03/11/19 09:30 Inderal La - PO 120 mg DAILY [facility] Administration S1 S2 RRR Lungs clear Abd- soft ,tender+RUQ no edema PLAN dc iv fluids start on hydralazine for better BP control continue with meds,. iv antibiotics OOB daily Problem List - Problems (1) Abdominal pain Code(s): R10.9 - UNSPECIFIED ABDOMINAL PAIN Qualifiers: Abdominal location: right upper quadrant Qualified Code(s): R10.11 - Right upper quadrant pain (2) Acute cholangitis due to calculus of bile duct with obstruction Code(s): K80.33 - CALCULUS OF BILE DUCT W ACUTE CHOLANGITIS WITH OBSTRUCTION (3) Cholangitis Code(s): K83.09 - OTHER CHOLANGITIS (4) Choledocholithiasis Code(s): K80.50 - CALCULUS OF BILE DUCT W/O CHOLANGITIS OR CHOLECYST W/O OBST (5) HTN (hypertension) Code(s): I10 - ESSENTIAL (PRIMARY) HYPERTENSION Qualifiers: Hypertension type: essential hypertension Qualified Code(s): I10 - Essential (primary) hypertension
[2019-03-11 11:54] LABS: ALBUMIN 2.6 g/dl (3.4-5.0); BILIRUBIN,TOTAL 0.4 mg/dL (0.2-1); BLOOD UREA NITROGEN 11.9 mg/dL (7-18); CALCIUM 8.6 mg/dL (8.5-10.1); CREATININE 0.8 mg/dL (0.55-1.3); POTASSIUM 3.6 mmol/L (3.5-5.1); TOT PROT 6.2 g/dl (6.4-8.2)
--- NOTE | 2019-03-11 12:27 | PN ---
Progress Note (short form) - Note Progress Note: doing well pod #1 s/p lap choly eating regular food +BM no abdominal pain Vital Signs Period Temp Pulse Resp BP Sys/Vasques Pulse Ox Last 24 Hr 98.7 F-99.0 F 59-62 19-20 155-158/69-71 98-98 cor-rrr llungs clear abd soft,nt ext no edema CBC, BMP 03/10/19 06:25 03/11/19 10:08 Microbiology 03/08/19 03:11 Blood - Peripheral Venous Blood Culture - Preliminary NO GROWTH OBTAINED AFTER 72 HOURS, INCUBATION TO CONTINUE FOR 2 DAYS. 03/08/19 03:11 Blood - Peripheral Venous Blood Culture - Preliminary NO GROWTH OBTAINED AFTER 72 HOURS, INCUBATION TO CONTINUE FOR 2 DAYS. 03/08/19 00:00 Urine - Urine Clean Catch Urine Culture - Final Normal Urogenital Rea a/p s/p lap choly pod#1 s/p ercp with stent pod #3 doing well will check cbc in am can hopefully d/c antiiboitics at that time Problem List - Problems (1) Choledocholithiasis Code(s): K80.50 - CALCULUS OF BILE DUCT W/O CHOLANGITIS OR CHOLECYST W/O OBST (2) Chronic cholecystitis Code(s): K81.1 - CHRONIC CHOLECYSTITIS (3) Gallstone pancreatitis Code(s): K85.10 - BILIARY ACUTE PANCREATITIS WITHOUT NECROSIS OR INFECTION (4) Chronic calcific pancreatitis Code(s): K86.1 - OTHER CHRONIC PANCREATITIS
--- NOTE | 2019-03-11 14:22 | PN ---
Progress Note, Physician History of Present Illness: Pt with gallstone pancreatitis, chronic cholecystitis, s/p ERCP with sphincterotomy, impacted stone removal and stent for residual filling defects. Now s/p lap homer, seen and examined in bed. She is feeling well, denies pain. Getting scheduled tylenol and ibuprofen. Tolerating low fat diet, voiding, had BM. Ambulates to bathroom with assist, concerned about doing so alone at home at night. She usually has [employer] 8 hrs daily , but not at night. Sat up in chair yesterday for a while. - Current Medication List Current Medications: Active Medications Acetaminophen (Tylenol -) 650 mg PO Q6H [facility] Last Admin: 03/11/19 13:00 Dose: 650 mg Clonazepam (Klonopin -) 1 mg PO TID [facility] Last Admin: 03/11/19 13:56 Dose: 1 mg Ertapenem 1 gm/ Sodium (Chloride) 50 mls @ 100 mls/hr IVPB DAILY [facility] Last Admin: 03/11/19 09:30 Dose: 100 mls/hr Ibuprofen (Motrin -) 600 mg PO Q6H [facility] Last Admin: 03/11/19 09:29 Dose: 600 mg Ondansetron HCl (Zofran Injection) 4 mg IVPUSH Q6H PRN PRN Reason: NAUSEA Paroxetine HCl (Paxil -) 20 mg PO DAILY [facility] Last Admin: 03/11/19 09:29 Dose: 20 mg Propranolol HCl (Inderal La -) 120 mg PO DAILY [facility] Last Admin: 03/11/19 09:30 Dose: 120 mg - Objective Vital Signs: Vital Signs Temperature 98.7 F 03/11/19 08:51 Pulse Rate 61 03/11/19 08:51 Respiratory Rate 20 03/11/19 08:55 Blood Pressure 158/69 03/11/19 08:51 O2 Sat by Pulse Oximetry (%) 98 03/11/19 08:55 Constitutional: Yes: No Distress, Calm, Obese Eyes: Yes: Conjunctiva Clear, EOM Intact. No: Sclera Icterus HENT: Yes: Atraumatic, Normocephalic Gastrointestinal: Yes: Soft, Abdomen, Obese, Tenderness (mild incisional, mainly at umbilicus). No: Tenderness, Epigastrium Extremities: No: Cool, Cyanosis Integumentary: Yes: Incision (x4 dressed). No: Jaundice, Rash Wound/Incision: Yes: Steri Strips (under dressings), Dressing Dry and Intact (x4 ). No: Dressing Removed Neurological: Yes: Alert, Oriented Labs: CBC, BMP 03/10/19 06:25 03/11/19 10:08 INR, PTT INR 1.22 (0.83-1.09) H 03/08/19 06:25 Problem List - Problems (1) Gallstone pancreatitis Assessment/Plan: POD2 s/p ERCP with sphincterotomy, extraction of impacted stone, stent for residual CBD filling defects after sweeping POD1 s/p laparoscopic cholecystectomy doing well, tolerating diet voiding, + bowel function, ambulating to bathroom with assist pain controlled with tylenol and ibuprofen on antibiotics per ID IV fluids off using IS, can only get 500-750ml will have PT see patient for ambulation, assessment ok for d/c from surgical standpoint will take down dressings tomorrow instructions in d/c plan to f/u in 2 weeks and with GI in 2-3 months Code(s): K85.10 - BILIARY ACUTE PANCREATITIS WITHOUT NECROSIS OR INFECTION (2) Calculus of gallbladder and bile duct with chronic cholecystitis with obstruction Code(s): K80.65 - CALCULUS OF GB AND BILE DUCT W CHRONIC CHOLECYST W OBST (3) Acute cholangitis due to calculus of bile duct with obstruction Assessment/Plan: currently on Ertapenem per ID ? if will need to continue abx on discharge home Code(s): K80.33 - CALCULUS OF BILE DUCT W ACUTE CHOLANGITIS WITH OBSTRUCTION (4) Chronic calcific pancreatitis Code(s): K86.1 - OTHER CHRONIC PANCREATITIS (5) HTN (hypertension) Assessment/Plan: continue propranolol Code(s): I10 - ESSENTIAL (PRIMARY) HYPERTENSION Qualifiers: Hypertension type: essential hypertension Qualified Code(s): I10 - Essential (primary) hypertension (6) Obesity due to excess calories without serious comorbidity Code(s): E66.09 - OTHER OBESITY DUE TO EXCESS CALORIES Qualifiers: Obesity classification: adult class 1 (BMI 30 - 34.9) Body mass index: BMI 32.0-32.9 Qualified Code(s): E66.09 - Other obesity due to excess calories; Z68.32 - Body mass index (BMI) 32.0-32.9, adult
[2019-03-11] MEDS ORDERED: HEPARIN NA (PORCINE) 5,000 UNITS/ML 1ML VIAL ONE (16:16)
[2019-03-11] MEDS ORDERED: hydrALAZINE HCL 50 MG TABLET (FP) PO ONE (23:14)
[2019-03-12] MEDS: ACETAMINOPHEN 325 MG TABLET (FP) PO SCH ×3 (00:37→12:13)
[2019-03-12] MEDS: IBUPROFEN 600 MG TABLET (FP) PO SCH ×2 (03:34→09:40)
[2019-03-12] MEDS: clonazePAM 0.5 MG TABLET PO SCH ×2 (06:45→13:28)
--- NOTE | 2019-03-12 07:07 | PN ---
Progress Note, Physician Chief Complaint: s/p lap homer under general anesthesia History of Present Illness: post op day one - Current Medication List Current Medications: Active Medications Acetaminophen (Tylenol -) 650 mg PO Q6H [facility] Last Admin: 03/12/19 06:46 Dose: 650 mg Clonazepam (Klonopin -) 1 mg PO TID [facility] Last Admin: 03/12/19 06:45 Dose: 1 mg Ertapenem 1 gm/ Sodium (Chloride) 50 mls @ 100 mls/hr IVPB DAILY [facility] Last Admin: 03/11/19 09:30 Dose: 100 mls/hr Ibuprofen (Motrin -) 600 mg PO Q6H [facility] Last Admin: 03/12/19 03:34 Dose: 600 mg Ondansetron HCl (Zofran Injection) 4 mg IVPUSH Q6H PRN PRN Reason: NAUSEA Paroxetine HCl (Paxil -) 20 mg PO DAILY [facility] Last Admin: 03/11/19 09:29 Dose: 20 mg Propranolol HCl (Inderal La -) 120 mg PO DAILY [facility] Last Admin: 03/11/19 09:30 Dose: 120 mg - Objective Vital Signs: Vital Signs Temperature 98.3 F 03/12/19 06:52 Pulse Rate 57 L 03/12/19 06:52 Respiratory Rate 26 H 03/12/19 06:52 Blood Pressure 168/88 03/12/19 06:52 O2 Sat by Pulse Oximetry (%) 95 03/11/19 21:00 Constitutional: Yes: Well Nourished Cardiovascular: Yes: WNL Respiratory: Yes: WNL Gastrointestinal: Yes: WNL Labs: INR, PTT INR 1.22 (0.83-1.09) H 03/08/19 06:25 Assessment/Plan No adverse anesthetic events, dept of anesthesiology will sign off care at this time
[2019-03-12 07:42] LABS: ALBUMIN 2.9 g/dl (3.4-5.0); BILIRUBIN,TOTAL 0.4 mg/dL (0.2-1); BLOOD UREA NITROGEN 11.6 mg/dL (7-18); CALCIUM 9.1 mg/dL (8.5-10.1); CREATININE 0.7 mg/dL (0.55-1.3); TOT PROT 6.8 g/dl (6.4-8.2)
[2019-03-12 08:20] LABS: HEMATOCRIT 34.5 % (32.4-45.2); MCH 27.9 pg (25.7-33.7); MCHC 31.8 g/dl (32.0-36.0); MEAN CELL VOLUME 87.8 fl (80-96); MEAN PLT VOLUME 8.7 fl (7.5-11.1); PLATELET COUNT 358 K/MM3 (134-434); RBC 3.92 M/mm3 (3.60-5.2); RDW 14.6 % (11.6-15.6); WHITE BLOOD COUNT 12.8 K/mm3 (4.0-10.0)
[2019-03-12] MEDS: PARoxetine HCL 20 MG TABLET PO SCH (09:40)
[2019-03-12] MEDS: ERTAPENEM SODIUM 1 GM in SODIUM CHLORIDE 50 ML IVPB SCH (10:04)
--- NOTE | 2019-03-12 10:38 | PN ---
Progress Note (short form) - Note Progress Note: doing well pod #2 s/p lap choly good appetite Vital Signs Period Temp Pulse Resp BP Sys/Vasques Pulse Ox Last 24 Hr 98.3 F-99.1 F 53-63 18-26 137-178/69-88 95 cor-rrr llungs clear abd soft, dressings intact ext no edema CBC, BMP 03/12/19 06:45 03/12/19 06:40 Microbiology 03/08/19 03:11 Blood - Peripheral Venous Blood Culture - Preliminary NO GROWTH OBTAINED AFTER 96 HOURS, INCUBATION TO CONTINUE FOR 1 DAYS. 03/08/19 03:11 Blood - Peripheral Venous Blood Culture - Preliminary NO GROWTH OBTAINED AFTER 96 HOURS, INCUBATION TO CONTINUE FOR 1 DAYS. 03/08/19 00:00 Urine - Urine Clean Catch Urine Culture - Final Normal Urogenital Rea a/p s/p lap choly pod#2 s/p ercp with stent pod #4 doing well will d/c ertapenem further management per surgery/pmd Problem List - Problems (1) Choledocholithiasis Code(s): K80.50 - CALCULUS OF BILE DUCT W/O CHOLANGITIS OR CHOLECYST W/O OBST (2) Chronic cholecystitis Code(s): K81.1 - CHRONIC CHOLECYSTITIS (3) Gallstone pancreatitis Code(s): K85.10 - BILIARY ACUTE PANCREATITIS WITHOUT NECROSIS OR INFECTION (4) Chronic calcific pancreatitis Code(s): K86.1 - OTHER CHRONIC PANCREATITIS
--- NOTE | 2019-03-12 12:43 | PN ---
Progress Note, Physician History of Present Illness: Pt with gallstone pancreatitis, chronic cholecystitis, s/p ERCP with sphincterotomy, impacted stone removal and stent for residual filling defects. Now s/p lap homer, seen ambulating back from bathroom with assist, examined in bed. About to eat lunch. She is feeling well, denies pain. Getting scheduled tylenol and ibuprofen. Tolerating low fat diet, voiding, had BM. PT saw her yesterday, recommended home PT on discharge. She reports daughters are coming in to make sure someone can stay with her all the time. - Current Medication List Current Medications: Active Medications Acetaminophen (Tylenol -) 650 mg PO Q6H [facility] Last Admin: 03/12/19 12:13 Dose: 650 mg Clonazepam (Klonopin -) 1 mg PO TID [facility] Last Admin: 03/12/19 06:45 Dose: 1 mg Hydralazine HCl (Apresoline -) 25 mg PO TID [facility] Ibuprofen (Motrin -) 600 mg PO Q6H [facility] Last Admin: 03/12/19 09:40 Dose: 600 mg Ondansetron HCl (Zofran Injection) 4 mg IVPUSH Q6H PRN PRN Reason: NAUSEA Paroxetine HCl (Paxil -) 20 mg PO DAILY [facility] Last Admin: 03/12/19 09:40 Dose: 20 mg Propranolol HCl (Inderal La -) 120 mg PO DAILY [facility] Last Admin: 03/12/19 09:40 Dose: 120 mg - Objective Vital Signs: Vital Signs Temperature 98.4 F 03/12/19 09:42 Pulse Rate 58 L 03/12/19 09:42 Respiratory Rate 20 03/12/19 09:42 Blood Pressure 178/72 H 03/12/19 09:42 O2 Sat by Pulse Oximetry (%) 95 03/11/19 21:00 Constitutional: Yes: No Distress, Calm, Obese Eyes: Yes: Conjunctiva Clear, EOM Intact. No: Sclera Icterus HENT: Yes: Atraumatic, Normocephalic Gastrointestinal: Yes: Soft, Abdomen, Obese. No: Tenderness (minimal umbilical incisional), Tenderness, Epigastrium Extremities: No: Cool, Cyanosis Integumentary: Yes: Incision (x4 dressed). No: Jaundice, Rash Wound/Incision: Yes: Steri Strips (intact x4), Dressing Dry and Intact (x4), Dressing Removed (x4) Neurological: Yes: Alert, Oriented. No: Unsteady Gait (using walker with one assist, moving well) Labs: CBC, BMP 03/12/19 06:45 03/12/19 06:40 CMP Sodium 144 mmol/L (136-145) 03/12/19 06:40 Potassium 4.0 mmol/L (3.5-5.1) 03/12/19 06:40 Chloride 108 mmol/L (98-107) H 03/12/19 06:40 Carbon Dioxide 32 mmol/L (21-32) 03/12/19 06:40 Anion Gap 3 MMOL/L (8-16) L 03/12/19 06:40 BUN 11.6 mg/dL (7-18) 03/12/19 06:40 Creatinine 0.7 mg/dL (0.55-1.3) 03/12/19 06:40 Est GFR (CKD-EPI)AfAm 96.86 03/12/19 06:40 Est GFR (CKD-EPI)NonAf 83.57 03/12/19 06:40 Random Glucose 87 mg/dL (74-106) 03/12/19 06:40 Calcium 9.1 mg/dL (8.5-10.1) 03/12/19 06:40 Phosphorus 2.0 mg/dL (2.5-4.9) L 03/09/19 06:20 Magnesium 2.0 mg/dL (1.8-2.4) 03/09/19 06:20 Total Bilirubin 0.4 mg/dL (0.2-1) 03/12/19 06:40 AST 23 U/L (15-37) 03/12/19 06:40 ALT 30 U/L (13-61) 03/12/19 06:40 Alkaline Phosphatase 140 U/L (45-117) H 03/12/19 06:40 Total Protein 6.8 g/dl (6.4-8.2) 03/12/19 06:40 Albumin 2.9 g/dl (3.4-5.0) L 03/12/19 06:40 Lipase 104 U/L (73-393) 03/09/19 06:20 Problem List - Problems (1) Gallstone pancreatitis Assessment/Plan: POD3 s/p ERCP with sphincterotomy, extraction of impacted stone, stent for residual CBD filling defects after sweeping POD2 s/p laparoscopic cholecystectomy doing well, tolerating diet voiding, + bowel function, ambulating with walker with assist dressings removed - steristrips intact, minimal incisional tenderness pain well controlled with tylenol and ibuprofen stopping abx per ID home PT per their assessment discussed with casework specialist ok for d/c from surgical standpoint instructions in d/c plan to f/u in 2 weeks and with GI in 2-3 months Code(s): K85.10 - BILIARY ACUTE PANCREATITIS WITHOUT NECROSIS OR INFECTION (2) Calculus of gallbladder and bile duct with chronic cholecystitis with obstruction Code(s): K80.65 - CALCULUS OF GB AND BILE DUCT W CHRONIC CHOLECYST W OBST (3) Acute cholangitis due to calculus of bile duct with obstruction Code(s): K80.33 - CALCULUS OF BILE DUCT W ACUTE CHOLANGITIS WITH OBSTRUCTION (4) Chronic calcific pancreatitis Code(s): K86.1 - OTHER CHRONIC PANCREATITIS (5) HTN (hypertension) Code(s): I10 - ESSENTIAL (PRIMARY) HYPERTENSION Qualifiers: Hypertension type: essential hypertension Qualified Code(s): I10 - Essential (primary) hypertension (6) Obesity due to excess calories without serious comorbidity Code(s): E66.09 - OTHER OBESITY DUE TO EXCESS CALORIES Qualifiers: Obesity classification: adult class 1 (BMI 30 - 34.9) Body mass index: BMI 32.0-32.9 Qualified Code(s): E66.09 - Other obesity due to excess calories; Z68.32 - Body mass index (BMI) 32.0-32.9, adult
[2019-03-12 13:27] VITALS: BP 161/69; PULSE 63; TEMP 97.8
[2019-03-12] MEDS ORDERED: hydrALAZINE HCL 25 MG TABLET (FP) PO SCH (14:00)
--- NOTE | 2019-03-12 19:16 | DS ---
Physical Examination Vital Signs: Vital Signs Temperature 97.8 F 03/12/19 13:25 Pulse Rate 63 03/12/19 13:25 Respiratory Rate 20 03/12/19 13:25 Blood Pressure 161/69 03/12/19 13:25 O2 Sat by Pulse Oximetry (%) 95 03/12/19 09:00 Constitutional: Yes: No Distress, Calm Cardiovascular: Yes: Regular Rate and Rhythm Respiratory: Yes: CTA Bilaterally Gastrointestinal: Yes: Normal Bowel Sounds, Soft. No: Tenderness Edema: No Labs: CBC, BMP 03/12/19 06:45 03/12/19 06:40 Discharge Summary Problems reviewed: Yes Reason For Visit: GALLSTONE PANCREATITIS Hospital Course: - Primary Care Physician PCP: Nicolle Siegel - Admission Chief Complaint: Abdominal Pain History of Present Illness: This is a 78 y/o woman with a PMHx of HTN, Pancreatitis, Anxiety. Who presents to the ED with abdominal pain and nausea x 1 day. Patient reports eating plantains with a salad, then around 12 noon she began having a sharp pain to her epigastrium radiating to RUQ. She reports attempting to lay down and get some rest, but that the pain became worse, calling her son, who suggested she go to the ED. Patient reports that the pain is similar to the Pancreatitis episode, several years ago. Patient reports having 3 formed non bloody BMs yesterday and per ED resident, had a BM in the ED with some relief. Patient reports seeing her GI this past summer having an EGD/Colonoscopy, which she reports being negative. Patient denies fever, chills, MURILLO, SOB, dizziness, CP, palpitations, V/D, constipation, melena, hematochezia, dysuria Hospital course she was seen by GI,ID and surgery Found to have gall stone pancreatitis, choledocholithiasis, cholangitits ERCP -with stone removal -on 03/08 was placed on iv antibiotics She later underwent lap homer - 03/10 clinically better eating regular meals without difficulty pt stable for dc home WBC decreased off antibiotics now per ID Condition: Good - Instructions Diet, Activity, Other Instructions: Postoperative instructions: You had a laparoscopic cholecystectomy on 03/10/[address] Jose Avendano of [facility]. Before that, you had an ERCP with sphincterotomy, stone removal and stent placement by Dr. Gigi Canela of Gastroenterology. You were diagnosed with gallstone pancreatitis, chronic cholecystitis and cholangitis, all related to gallstones in your gallbladder and bile ducts. Activity: Resume your usual activities gradually, but no heavy exertion or lifting more than 10-15 pounds for 1 month. Sticky tapes on the incisions will fall off by themselves. You may shower daily with the sticky tapes in place, just pat the incision areas dry. No bath or swimming until skin incisions have fully healed. Eat lightly at first, but advance to your usual diet as tolerated. Pain: For pain, you may use and alternate Tylenol (acetaminophen) 1-2 pills and/ or ibuprofen 200 mg (1-3 pills) every 6 hours each as needed; this means that you can take one OR the other at 3-hour (or more) intervals. Do not take more than 4000mg of acetaminophen in a day. Take medications as prescribed or indicated on the labeling. You may RESUME taking your usual baby aspirin daily. Follow-up: Call Dr. Avendano's office at [phone] to make your postop appointment (Wednesday in approximately 2 weeks after surgery). Clinic is held in the [facility] on the first floor of [facility]. Call the office if you have: * increasing pain not responsive to pain medication * fever of 101F or higher * vomiting * unusual or increasing bleeding or drainage from wounds * increasing redness or swelling at wound sites Also, see your primary medical doctor within 1-2 weeks. You have been prescribed one NEW blood pressure medicine (hydralazine 3 times a day) to take, in addition to your other medications. The prescription will only last 10 days, so be sure to follow up with your doctor soon enough to be able to get more and continue it. BRING THIS PAPERWORK WITH YOU TO YOUR DOCTORS' APPOINTMENTS. You will also need to follow up with Dr. Canela/SPENCER in a couple of months to schedule repeat ERCP - the stent in your bile duct must be removed in about 3 months. Make sure to get an appointment with him as directed. Referrals: Jose Avendano MD [Staff Physician] - Gigi Canela MD [Staff Physician] - Disposition: HOME - Home Medications Comprehensive Discharge Medication List: Ambulatory Orders Paroxetine HCl [Paxil -] 20 mg PO DAILY 08/01/11 clonazePAM [KlonoPIN -] 1 mg PO TID 04/11/16 propRANOLol HCL [Inderal Xl] 120 mg PO DAILY 04/11/16 Aspirin 81 mg PO DAILY 03/08/19 hydrALAZINE HCL [Apresoline -] 25 mg PO TID #30 tablet 03/12/19
--- NOTE | 2019-03-14 09:57 | PATH ---
Surgical Pathology Report Patient Name: JAQUI NIEVES Med. Rec. #: [id number] /Age/Gender: 1940 (Age: 78) / F Account: [id number] Location: [facility] MED/SURG Taken: 03/10/2019 Received: 03/10/2019 Reported: 03/14/2019 Physicians: Giovanna Miller M.D. Specimen(s) Received GALLBLADDER Clinical History gallstone pancreatitis, chronic cholecystitis Final Diagnosis GALLBLADDER, CHOLECYSTECTOMY: FOCAL ACUTE SUPERIMPOSED ON CHRONIC CHOLECYSTITIS. CHOLELITHIASIS. Electronically Signed Bre Cordon M.D. Gross Description Received in formalin, labeled "gallbladder," is a 12 x 12 x 3.0 cm. gallbladder with a 0.2 cm. in length portion of cystic duct attached. The outer surface varies from smooth to shaggy. The lumen contains with bile and many yellow stones, ranging from 0.1-0.8 cm in greatest dimension. The mucosa is focally superficial eroded. The wall of the gallbladder measures 0.2cm in thickness. [employer] sections are submitted in one cassette. BRIA/03/10/2019 louie/03/10/2019
--- NOTE | 2019-03-18 07:50 | OP ---
DATE OF OPERATION: 03/10/2019 PREOPERATIVE DIAGNOSES: Gallstone pancreatitis and chronic cholecystitis. POSTOPERATIVE DIAGNOSES: Gallstone pancreatitis and chronic cholecystitis. PROCEDURE: Laparoscopic cholecystectomy. SURGEON: Jose Avendano MD SOFTBALL UMPIRE: LIBRADO Velasquez ANESTHESIA: General endotracheal and local, 20 mL of 0.5% Marcaine. ESTIMATED BLOOD LOSS: 15 mL. FLUIDS: Crystalloid 700 mL. SPECIMEN: Gallbladder to pathology. FINDINGS: The critical view was identified. There were multiple stones palpable in the gallbladder. One was milked back from the cystic duct prior to clipping. The gallbladder wall was edematous. DISPOSITION: Stable and extubated to PACU. INDICATIONS FOR PROCEDURE: Patient is a 78-year-old obese female with a history of hypertension; chronic pancreatitis possibly attributed to heavy alcohol use in the past, but she quit 30 years prior; gallstones noted on imaging almost a year ago; and a surgical history significant for tubal ligation and left knee replacement, who had presented to the emergency room with central abdominal pain radiating to the epigastric and right upper quadrant areas, associated with chills and nausea, but no vomiting, similar to her previous pancreatitis pain. In the ER, she had white count of 11.9, elevated LFTs, and a lipase of 54,500. Ultrasound and CT were done showing gallstones with mild wall thickening noted on previous multiple studies, thought related to chronic cholecystitis as well as chronic calcific pancreatic changes and enlarged common bile duct and increased intrahepatic dilation. MRCP was also ordered. She was admitted to Medicine, provided with IV fluids and pain medication, and kept n.p.o. The next day, her white count jumped to 14.6. LFTs also adonis. GI saw her, and Dr. Canela took her before the MRCP was done for ERCP. At which, he performed sphincterotomy, was able to remove an impacted stone, and was unable to sweep out any additional filling defects, although there were some noted; so, he left a biliary stent, and antibiotics were started in conjunction with ID. The following day, she had no evidence of increase or worsening in pancreatitis. LFTs trended down. Lipase was normal, although her white count was still elevated, and she had no more pain or tenderness. Risks, benefits, and alternatives of laparoscopic, possible open cholecystectomy were discussed with the patient including, but not limited to, bleeding, infection, injury to adjacent structures, bile leak or ductal injury, intraabdominal abscess, incisional hernia, need for further procedures, and . Alternatives were also discussed including antibiotics with delayed or no surgery and risks thereof including recurrence of pancreatitis, cholangitis, cholecystitis, sepsis, and their consequences. Patient was agreeable to proceed with the operation, signed informed consent for the same, and is now brought to the OR for this procedure. Her morning antibiotic was given in the room immediately prior to the procedure. OPERATIVE TECHNIQUE: The patient was brought to the operating room and laid supine on the operating table. Sequential compression devices were used on bilateral lower extremities. After induction and intubation by Anesthesia, her abdomen was prepped and draped in sterile fashion. A small supraumbilical midline incision was made with a scalpel and carried into subcutaneous tissues with electrocautery until the abdominal wall fascia was identified, scored, and elevated with Florentino clamps. The peritoneum was entered bluntly with the tip of a clamp and a fingertip inserted to ensure entry into the abdominal cavity and the absence of any underlying adhesions. A stay suture of 0 Vicryl was then placed in the fascia in [id number] fashion for later closure, and the Carlee trocar introduced directly into the abdominal cavity and secured in place with balloon. The abdomen was insufflated with carbon dioxide. Patient was placed in reverse Trendelenburg position, and a laparoscope inserted to inspect the abdominal cavity. Three additional 5-mm ports were then placed under direct vision in the subxiphoid and right upper quadrant areas. Graspers were introduced through the right, the first to grasp the fundus of the gallbladder and elevate it over the liver edge, the second to grasp the infundibulum of the gallbladder and retract it laterally. [place] dissector was used to begin dissection at the base of the gallbladder to identify the cystic structures, and this was ultimately accomplished with the critical view being identified with the cystic duct and artery being the only 2 structures clearly entering directly onto the gallbladder with the liver bed visible behind. There was a stone that was carefully milked back from the cystic duct into the gallbladder, and then, both structures were clipped, two proximally and one distally, and divided with endoscissors between the clips. Hook cautery was then used to take the gallbladder off the liver bed. Once this had been entirely accomplished, the gallbladder was placed in an Endo Catch bag and retrieved out the umbilical port site. Multiple stones were palpable in the gallbladder. This was passed off for a pathology specimen. The Carlee trocar and pneumoperitoneum were then re-established and the operative site inspected for hemostasis. Some fluid and bloody secretions suctioned from the operative site. No active bleeding was noted as the hook cautery had been used to control any oozing from the liver bed throughout the procedure. The 5-mm ports were then removed under direct vision. The Carlee and camera also removed from the abdominal cavity which was exsufflated of carbon dioxide. The patient was returned to neutral position. The stay suture at the umbilicus tied to close the fascia there, and hemostasis was achieved in the port sites with electrocautery where necessary. Local anesthetic was infiltrated into all the port sites, and 4-0 Vicryl subcuticular sutures were used to close skin including a running at the umbilicus. Benzoin and Steri-Strips were applied over each incision and dressings of gauze and Tegaderm placed over these. Counts were correct at the end of the procedure. The patient was then awakened and extubated by Anesthesia, moved back to a stretcher, and taken to the recovery room in stable condition, having tolerated the procedure well. Zhang Moss was an essential assistant professor of mathematics throughout the procedure including facilitating entry into the abdominal cavity, retraction and manipulation of the gallbladder throughout the case, assistance with retrieval of the gallbladder, infiltration of local anesthetic, and closure of the port sites. Jose Avendano M.D. [id number]
== END 2019-03-12 16:10 | disposition home or self-care (01) | DRG 417 ==
LOC: JER 20:46 → JERBED 03-08 01:18 → J7W 03-08 04:18
PROVIDERS: ADMIT Internal Medicine; ATTEND Internal Medicine
PROC: 0FC98ZZ Extirpation of Matter from Common Bile Duct, Via Natural or Artificial Opening Endoscopic (ICD-10-PCS; 2019-03-08)
PROC: 0F798DZ Dilation of Common Bile Duct with Intraluminal Device, Via Natural or Artificial Opening Endoscopic (ICD-10-PCS; 2019-03-08)
PROC: BF13YZZ Fluoroscopy of Gallbladder and Bile Ducts using Other Contrast (ICD-10-PCS; 2019-03-08)
PROC: 0FT44ZZ Resection of Gallbladder, Percutaneous Endoscopic Approach (ICD-10-PCS; principal; 2019-03-10 08:00)
DX: K80.65 Calculus of gallbladder and bile duct with chronic cholecystitis with obstruction (principal); K85.10 Biliary acute pancreatitis without necrosis or infection; K80.44 Calculus of bile duct with chronic cholecystitis without obstruction; R10.11 Right upper quadrant pain; I10 Essential (primary) hypertension; E11.9 Type 2 diabetes mellitus without complications; D72.829 Elevated white blood cell count, unspecified; F41.9 Anxiety disorder, unspecified; E66.9 Obesity, unspecified; Z68.32 Body mass index [BMI] 32.0-32.9, adult; Z96.652 Presence of left artificial knee joint
CPT/HCPCS: 36415; 74177-TC; 76705-TC; 80048; 80053; 80307; 81003; 83690; 83735; 84100; 85025; 85027; 85610; 86850; 86900; 86901; 87040; 87086; 88304-TC; 93005; 93010; 94760; 97116-GP; 97161-GP; 99284-25; J0131; J1644; J7030

== ENCOUNTER 2019-03-17 15:08 | Inpatient (IN) | payer OTHER ==
--- NOTE | 2019-03-17 15:43 | PDOC ---
Rapid Medical Evaluation Chief Complaint: Pain Time Seen by Provider: 03/17/19 15:37 Medical Evaluation: Allergies Allergy/AdvReac Type Severity Reaction Status Date / Time No Known Allergies Allergy Verified 03/17/19 15:39 03/17/19 15:40 Pt c/o: llq sharp pain since 2 days ago, recent gallbladder removal (), no bowel or bladder complaionts, no fever, n/v, and had 1 episode of diarrhea Pt on brief exam: febrile, incision intact x 3, no distention, Pt ordered for: labs, urine Pt to proceed to the ED Discharge Disposition - Diagnosis Abdominal pain Qualifiers: Abdominal location: lower abdomen, unspecified Qualified Code(s): R10.30 - Lower abdominal pain, unspecified - Discharge Dispostion Disposition: HOME Condition at time of disposition: Improved - Referrals - Patient Instructions - Post Discharge Activity
[2019-03-17 16:41] LABS: BASO % 0.7 % (0-2.0); EOS % 0.4 % (0-4.5); HEMATOCRIT 38.2 % (32.4-45.2); HEMOGLOBIN 12.2 GM/dL (10.7-15.3); LYMPH % 4.2 % (8-40); MCH 27.6 pg (25.7-33.7); MCHC 31.9 g/dl (32.0-36.0); MEAN CELL VOLUME 86.3 fl (80-96); MEAN PLT VOLUME 7.9 fl (7.5-11.1); MONO % 5.5 % (3.8-10.2); NEUT % 89.2 % (42.8-82.8); PLATELET COUNT 484 K/MM3 (134-434); RBC 4.43 M/mm3 (3.60-5.2); RDW 14.8 % (11.6-15.6); WHITE BLOOD COUNT 21.8 K/mm3 (4.0-10.0)
[2019-03-17 17:06] LABS: ALBUMIN 3.1 g/dl (3.4-5.0); BILIRUBIN,TOTAL 0.5 mg/dL (0.2-1); BLOOD UREA NITROGEN 9.4 mg/dL (7-18); CREATININE 0.7 mg/dL (0.55-1.3); POTASSIUM 3.8 mmol/L (3.5-5.1); TOT PROT 7.5 g/dl (6.4-8.2)
[2019-03-17 17:54] LABS: PLATELET ESTIMATE NORMAL
[2019-03-17] MEDS ORDERED: ACETAMINOPHEN 1000 MG/100 ML VIAL (NON FORMULARY) IVPB ONE (18:06)
[2019-03-17] MEDS ORDERED: SODIUM CHLORIDE 0.9% 500 ML INFUS.BAG IV ONE (18:06)
--- NOTE | 2019-03-17 18:06 | PDOC ---
Attending Attestation - Resident Resident Name: DesmondAce - ED Attending Attestation I have performed the following: I have examined & evaluated the patient, The case was reviewed & discussed with the resident, I agree w/resident's findings & plan, Exceptions are as noted - HPI HPI: 03/17/19 18:11 78 F with h/o HTN, Pancreatitis, POD #7 s/p lap homer, presenting today with 2 days of abdominal pain and diarrhea. Reports lower abdominal pain that is cramplike. Associated with multiple episodes of profuse watery diarrhea. No N/ V. Pt also reports subjective fevers and chills at home. - Physicial Exam PE: 03/17/19 18:19 "GENERAL: Awake, alert, and fully oriented, in no acute distress. HEAD: No signs of trauma EYES: PERRLA, EOMI, sclera anicteric, conjunctiva clear ENT: Auricles normal inspection, hearing grossly normal, nares patent, oropharynx clear without exudates. Moist mucosa NECK: Nontender, no stepoffs, Normal ROM, supple, no lymphadenopathy, JVD, or masses LUNGS: Breath sounds equal, clear to auscultation bilaterally. No wheezes, and no crackles HEART: Regular rate and rhythm, normal S1 and S2, no murmurs, rubs or gallops ABDOMEN: + lower abdominal tenderness, normoactive bowel sounds. No guarding, no rebound. No masses EXTREMITIES: Normal range of motion, no edema. No clubbing or cyanosis. No cords, erythema, or tenderness NEUROLOGICAL: Cranial nerves II through XII intact. 5/5 strength and sensation in all extremities, Normal speech, normal gait, normal cerebellar function SKIN: Warm, Dry, normal turgor, no rashes or lesions noted. - Medical Decision Making 03/17/19 18:20 78 F with lower abdominal pain, diarrhea, febrile in ED. Pt with no jaundice, no RUQ tenderness, but will r/o cholangitis. Given diarrhea, will need to r/o C diff. Also consider PNA or UTI. - Labs, cultures, C diff PCR - CXR, UA - CTAP - IVF, tylenol
--- NOTE | 2019-03-17 18:18 | PDOC ---
History of Present Illness - General Chief Complaint: Pain Stated Complaint: ABDOMINAL PAIN Time Seen by Provider: 03/17/19 15:37 History Source: Patient, Family Exam Limitations: No Limitations Past History - Past Medical History Allergies/Adverse Reactions: Allergies Allergy/AdvReac Type Severity Reaction Status Date / Time No Known Allergies Allergy Verified 03/17/19 15:39 Home Medications: Ambulatory Orders Paroxetine HCl [Paxil -] 20 mg PO DAILY 08/01/11 clonazePAM [KlonoPIN -] 1 mg PO TID 04/11/16 propRANOLol HCL [Inderal Xl] 120 mg PO DAILY 04/11/16 Aspirin 81 mg PO DAILY 03/08/19 hydrALAZINE HCL [Apresoline -] 25 mg PO TID #30 tablet 03/12/19 Anemia: Yes Asthma: Yes Cancer: No Cardiac Disorders: No CVA: No COPD: No CHF: No Dementia: No Diabetes: Yes (DIET CONTROLLED) GI Disorders: Yes Disorders: No HTN: No Hypercholesterolemia: No Liver Disease: Yes Psychiatric Problems: Yes (ANXIETY , SHAKEY, NERVOUS PROBLEM) Seizures: No Thyroid Disease: No - Surgical History Abdominal Surgery: Yes (TUBAL LIGATION) Appendectomy: No Cardiac Surgery: No Cholecystectomy: No Lung Surgery: No Neurologic Surgery: No Orthopedic Surgery: Yes (Left Knee replacement) - Immunization History Immunization Up to Date: Yes - Psycho Social/Smoking Cessation Hx Smoking Status: No Smoking History: Never smoked Have you smoked in the past 12 months: No Number of Cigarettes Smoked Daily: 0 If you are a former smoker, when did you quit?: 30 YRS AGO Information on smoking cessation initiated: No Hx Alcohol Use: No Drug/Substance Use Hx: No Substance Use Type: None Hx Substance Use Treatment: No *Physical Exam - Vital Signs Last Vital Signs Temp Pulse Resp BP Pulse Ox 100.8 F H 85 18 143/70 95 03/17/19 15:40 03/17/19 15:40 03/17/19 15:40 03/17/19 15:40 03/17/19 15:40 ED Treatment Course - LABORATORY CBC & Chemistry Diagram: 03/17/19 16:14 03/17/19 16:14 - ADDITIONAL ORDERS Additional order review: Laboratory Results 03/17/19 03/17/19 16:14 16:14 Sodium 140 Potassium 3.8 Chloride 108 H Carbon Dioxide 25 Anion Gap 7 L BUN 9.4 Creatinine 0.7 Est GFR (CKD-EPI)AfAm 96.86 Est GFR (CKD-EPI)NonAf 83.57 Random Glucose 124 H Lactic Acid 1.7 Calcium 9.0 Total Bilirubin 0.5 AST 21 ALT 19 Alkaline Phosphatase 135 H Total Protein 7.5 Albumin 3.1 L Lipase 53 L 03/17/19 16:14 RBC 4.43 MCV 86.3 MCHC 31.9 L RDW 14.8 MPV 7.9 Neutrophils % 89.2 H Lymphocytes % 4.2 L D Monocytes % 5.5 Eosinophils % 0.4 D Basophils % 0.7 - RADIOLOGY Radiology Studies Ordered: Category Date Time Status ABDOMEN & PELVIS CT WITH CONTR [CT] Stat CT Scan 03/17/19 18:06 Ordered Medical Decision Making - Medical Decision Making 03/17/19 18:12 HPI: 78F PMH HTN, MDD c/o 2 days colicky, nonconstant, nonradiating lower abdominal pain w/ 2 days loose stool and 1 episode of watery diarrhea. Endorsing chills. Denies n/v, inability to tolerate PO. Recent lap homer. and abx tx. Tried tylenol and motrin w/o relief. PMH: as above; see chart MED: see chart NKDA ROS: CONSTITUTIONAL: Endorsing chills RESP: Denies SOB CARD: Denies chest pain GI: Endorses abdominal pain and diarrhea (primary). Denies N / V, bloody stool, inability to tolerate PO : Denies dysuria, frequency PE: GEN: Well appearing, NAD, comfortable. Nontoxic. AAOx3 HEENT: NC/AT, anicteric. No facial asymmetry. Normal voice. CV: S1/S2, RRR, no m/r/g LUNG: CTAB, no wheezes, crackles, rales, rhonchi. GI: Tender suprapubically, soft, nondistended, well healed laparoscopic scars w/ o discharge, no guarding, no rebound. No masses. EXTREMITIES: 2+ distal pulses. No LE edema. No obvious deformities of all extremities. SKIN: warm, dry, normal turgor PSYCH: normal mood and affect NEURO: resting tremor of the head MDM: 78F sent by for eval of lower abdominal pain and diarrhea x2 days. Recent hospitalization and abx 2/2 lap homer. DDx - c.diff colitis, colitis, diverticulitis, abscess, ascending cholangitis. - cbc, cmp, UA - c.diff stool - CT a/p - fluids, pain ctrl 03/17/19 21:20 CT - Hummel colitis PO vanc admit Patient endorsed to MAR // Admitted to M/S Discharge - Discharge Information Problems reviewed: Yes Clinical Impression/Diagnosis: Abdominal pain Qualifiers: Abdominal location: lower abdomen, unspecified Qualified Code(s): R10.30 - Lower abdominal pain, unspecified - Admission Yes - Follow up/Referral - Patient Discharge Instructions - Post Discharge Activity
[2019-03-17] MEDS ORDERED: ACETAMINOPHEN INJECTION 100 ML IVPB ONE (18:27)
[2019-03-17] MEDS ORDERED: morphine CARPU-JECT 4 MG/1 ML DISP.SYRIN IVPUSH ONE (20:03)
[2019-03-17] MEDS ORDERED: morphine SULFATE 4 MG/ML VIAL ONE (20:46)
[2019-03-17 21:02] LABS: URINE APPEARANCE CLEAR; URINE BILIRUBIN NEGATIVE (NEGATIVE); URINE COLOR YELLOW; URINE GLUCOSE (UA) NEGATIVE (NEGATIVE); URINE KETONE TRACE (NEGATIVE)
[2019-03-17 21:03] LABS: PH,URINE 5.5 (5.0-8.0); URINE LEUK ESTERASE NEGATIVE (NEGATIVE); URINE NITRITE NEGATIVE (NEGATIVE); URINE PROTEIN NEGATIVE (NEGATIVE); URINE UROBILINOGEN 0.2 mg/dL (0.2-1.0)
--- NOTE | 2019-03-18 00:14 | HP ---
<Ernie Mcleod - Last Filed: 03/18/19 04:05> CHIEF COMPLAINT: abdominal pain/diarrhea PCP: iNcolle Siegel HISTORY OF PRESENT ILLNESS: 78 year old female with a history of hypertension, major depression, pancreatitis, POD # [address] Avendano presented for several days of bilateral lower abdominal pain with watery diarrhea. Reports that it started right after the surgery, continued and become worse, prompting her to come to the hospital. She reports associated fevers/chills, however she denied chest pain, shortness of breath, nausea or vomiting. Reports that she cannot tolerate PO intake without significant pain to her lower abdomen. States that she tried both acetaminophen and ibuprofen with minimal relief of her pain. No recent travel, denies sick contacts. Denies dysuria. ER course was notable for: (1) WBC > 20 (2) CT noted for pancolitis (3) Recent Travel: denies recent travel PAST MEDICAL HISTORY: hypertension, major depression PAST SURGICAL HISTORY: s/p laparoscopic cholecystectomy (POD 7), L knee replacement; s/p ERCP on 03/08 with stone removal and stenting Social History: Smoking: denies Alcohol: denies Drugs: denies Family History: denies family history of cardiac diseases, cancers Allergies No Known Allergies Allergy (Verified 03/17/19 15:39) HOME MEDICATIONS: Home Medications Medication Instructions Recorded Paroxetine HCl [Paxil -] 20 mg PO DAILY 08/01/11 clonazePAM [KlonoPIN -] 1 mg PO TID 04/11/16 propRANOLol HCL [Inderal Xl] 120 mg PO DAILY 04/11/16 Aspirin 81 mg PO DAILY 03/08/19 hydrALAZINE HCL [Apresoline -] 25 mg PO TID #30 tablet 03/12/19 REVIEW OF SYSTEMS CONSTITUTIONAL: fever, chills Absent: diaphoresis, generalized weakness, malaise, loss of appetite, weight change HEENT: Absent: rhinorrhea, nasal congestion, throat pain, throat swelling, difficulty swallowing, mouth swelling, ear pain, eye pain, visual changes CARDIOVASCULAR: Absent: chest pain, syncope, palpitations, irregular heart rate, lightheadedness , peripheral edema RESPIRATORY: Absent: cough, shortness of breath, dyspnea with exertion, orthopnea, wheezing, stridor, hemoptysis GASTROINTESTINAL:abdominal pain, abdominal distension, diarrhea Absent: nausea, vomiting, diarrhea, constipation, melena, hematochezia GENITOURINARY: Absent: dysuria, frequency, urgency, hesitancy, hematuria, flank pain, genital pain MUSCULOSKELETAL: Absent: myalgia, arthralgia, joint swelling, back pain, neck pain SKIN: Absent: rash, itching, pallor HEMATOLOGIC/IMMUNOLOGIC: Absent: easy bleeding, easy bruising, lymphadenopathy, frequent infections ENDOCRINE: Absent: unexplained weight gain, unexplained weight loss, heat intolerance, cold intolerance NEUROLOGIC: Absent: headache, focal weakness or paresthesias, dizziness, unsteady gait, seizure, mental status changes, bladder or bowel incontinence PSYCHIATRIC: Absent: anxiety, depression, suicidal or homicidal ideation, hallucinations. PHYSICAL EXAMINATION Vital Signs - 24 hr 03/17/19 15:40 Temperature 100.8 F H Pulse Rate 85 Respiratory 18 Rate Blood Pressure 143/70 O2 Sat by Pulse 95 Oximetry (%) GENERAL: A&Ox3, mild distress EYES: PERRLA, EOMI ENT: Dry mucus membranes, no pharyngeal erythema NECK: No JVD, no lymphadenopathy palpated LUNGS: CTA, no wheezes HEART: RRR, no murmurs ABDOMEN: Soft, diffusely tender to palpation, incisional scars from lap homer are clean and without surrounding erythema MUSCULOSKELETAL: No CVA Tenderness EXTREMITIES: 2+ pulses, no edema. NEUROLOGICAL: Cranial nerves II-XII intact. No focal deficits Laboratory Results - last 24 hr 03/17/19 03/17/19 03/17/19 16:14 16:14 16:14 WBC 21.8 H RBC 4.43 Hgb 12.2 Hct 38.2 MCV 86.3 MCH 27.6 MCHC 31.9 L RDW 14.8 Plt Count 484 H D MPV 7.9 Absolute Neuts (auto) 19.4 H Neutrophils % 89.2 H Neutrophils % (Manual) 89.8 H Band Neutrophils % 2.0 Lymphocytes % 4.2 L D Lymphocytes % (Manual) 4.1 L Monocytes % 5.5 Monocytes % (Manual) 2 L Eosinophils % 0.4 D Eosinophils % (Manual) 1.0 Basophils % 0.7 Basophils % (Manual) 0.0 Myelocytes % (Man) 0 Promyelocytes % (Man) 0 Blast Cells % (Manual) 0 Nucleated RBC % 0 Metamyelocytes 0 Hypochromia 1+ Platelet Estimate Normal Sodium 140 Potassium 3.8 Chloride 108 H Carbon Dioxide 25 Anion Gap 7 L BUN 9.4 Creatinine 0.7 Est GFR (CKD-EPI)AfAm 96.86 Est GFR (CKD-EPI)NonAf 83.57 Random Glucose 124 H Lactic Acid 1.7 Calcium 9.0 Total Bilirubin 0.5 AST 21 ALT 19 Alkaline Phosphatase 135 H Total Protein 7.5 Albumin 3.1 L Lipase 53 L Urine Color Urine Appearance Urine pH Ur Specific [place] Urine Protein Urine Glucose (UA) Urine Ketones Urine Blood Urine Nitrite Urine Bilirubin Urine Urobilinogen Ur Leukocyte Esterase 03/17/19 20:20 WBC RBC Hgb Hct MCV MCH MCHC RDW Plt Count MPV Absolute Neuts (auto) Neutrophils % Neutrophils % (Manual) Band Neutrophils % Lymphocytes % Lymphocytes % (Manual) Monocytes % Monocytes % (Manual) Eosinophils % Eosinophils % (Manual) Basophils % Basophils % (Manual) Myelocytes % (Man) Promyelocytes % (Man) Blast Cells % (Manual) Nucleated RBC % Metamyelocytes Hypochromia Platelet Estimate Sodium Potassium Chloride Carbon Dioxide Anion Gap BUN Creatinine Est GFR (CKD-EPI)AfAm Est GFR (CKD-EPI)NonAf Random Glucose Lactic Acid Calcium Total Bilirubin AST ALT Alkaline Phosphatase Total Protein Albumin Lipase Urine Color Yellow Urine Appearance Clear Urine pH 5.5 D Ur Specific [place] 1.056 H Urine Protein Negative Urine Glucose (UA) Negative Urine Ketones Trace H Urine Blood Negative Urine Nitrite Negative Urine Bilirubin Negative Urine Urobilinogen 0.2 Ur Leukocyte Esterase Negative ASSESSMENT/PLAN: 78 year old female with a history of hypertension, major depression, pancreatitis, POD # [address] Avendano presented for several days of bilateral lower abdominal pain with watery diarrhea #Sepsis 2/2 Pancolitis: could be infectious vs inflammatory in origin vs c diff colitis; s/p ERCP on 03/08 with stone extraction/stenting -empiric abx started- patient is on vancomycin PO and zosyn IV -studies sent for stool culture, lactoferrin, stool WBCs -lipase normal -blood/urine cultures pending -lactated ringers at 125cc/hr -GI consulted -ID consulted -Dr. Avendano consulted #Hypertension: mildly hypertensive today -continue home hydralazine 25 PO TID #Major Depressive Disorder: chronic -continue paxil 20 daily #FEN -LR @ 125cc/hr -NPO except meds -replete lytes as necessary in AM #Prophylaxis -SCDs #Disposition -admit med surg Visit type - Emergency Visit Emergency Visit: Yes ED Registration Date: 03/17/19 Care time: The patient presented to the Emergency Department on the above date and was hospitalized for further evaluation of their emergent condition. - New Patient This patient is new to me today: Yes Date on this admission: 03/18/19 - Critical Care Critical Care patient: No ATTENDING PHYSICIAN STATEMENT I saw and evaluated the patient. I reviewed the resident's note and discussed the case with the resident. I agree with the resident's findings and plan as documented. SUBJECTIVE: OBJECTIVE: ASSESSMENT AND PLAN: <Octavio Bravo - Last Filed: 03/25/19 10:54> I have seen and examined the indicated patient along with the resident team. I have personally verified all simms exam findings and historical components. I have personally interpreted all diagnostics indicated per todays orders and reviewed interpretation of indicated subspecialty services. This patient meets a high level of medical complexity and warrants inpatient stay to avoid decompensation and worsening of the indicated illness. S:Agree with historical findings as outlined in resident documentation regarding history of presentillness.10 system ROS completed and is negative aside from indicated issues in the resident/attending history of present illness and full documentation. Past Medical History and Past Surgical Histories reviewed in depth; per resident note Social history is reviewed; per resident note Complete family history is reviewed with patient and is non-pertinent aside from the indicated issues outlined above. No sudden history of cardiac . O: All vital signs reviewed per ER records and are as per EMR NAD, AAO, Resting in bed NC AT EOMI PERRLA Neck supple, trachea midline, no berenice LN RRR s1/2 Lungs CTAB, w/ sym expansion Moderate diffuse tenderness, postoperative scars noted, ND +BS No skin breakdown or rashes noted CN2-12 wnl, no new focal deficits noted Muscle tone normal, no deficits in motor function or strength noted Normal mood, appropriate behavior, average insight EKG reviewed CXR reviewed CT reviewed; acute pancolitis compared to their 03/07/2019 study A/P: Patient seen, examined, and discussed in depth with resident team. Problem list reviewed per resident note and agree with their discussion aside from as supplemented by myself below -Sepsis secondary to Acute Pancolitis -Status post homer/biliary stenting with recent choledocho/gallstone pancreatitis with cholangitis. She is s/p 03/08 ERCP with stone removal/ stenting on 03/08 and lap homer 03/[address] Avendano. She was also seen by Dr. Mccollum at that time in ID. Completed abx. -Incidentaloma -Hx Anxiety -Hx HTN, uncontrolled ATTENDING PHYSICIAN STATEMENT I saw and evaluated the patient. I reviewed the resident's note and discussed the case with the resident. I agree with the resident's findings and plan as documented. SUBJECTIVE: OBJECTIVE: ASSESSMENT AND PLAN:
[2019-03-18] MEDS: VANCOMYCIN 250 MG/5 ML ORAL SOLUTION PO SCH ×4 (01:45→17:30)
[2019-03-18] MEDS: LACTATED RINGERS SOLUTION 1,000 ML IV SCH (01:45)
[2019-03-18] MEDS ORDERED: PIPERACILLIN/TAZOB 3.375 GM 3.375 GM/50 ML BAG IVPB ONE (03:22)
[2019-03-18] MEDS: PIPERACILLIN/TAZOB 3.375 GM 3.375 GM in DEXTROSE 5%-WATER - 50 ML IVPB SCH ×2 (03:42→11:37)
[2019-03-18] MEDS ORDERED: hydrALAZINE HCL 25 MG TABLET (FP) ONE ×2 (06:30→20:56)
[2019-03-18] MEDS: hydrALAZINE HCL 25 MG TABLET (FP) PO SCH ×3 (07:01→21:21)
[2019-03-18 07:43] LABS: HEMATOCRIT 33.8 % (32.4-45.2); MCH 27.8 pg (25.7-33.7); MCHC 32.4 g/dl (32.0-36.0); MEAN CELL VOLUME 85.8 fl (80-96); MEAN PLT VOLUME 7.9 fl (7.5-11.1); PLATELET COUNT 436 K/MM3 (134-434); RBC 3.94 M/mm3 (3.60-5.2); RDW 15.1 % (11.6-15.6); WHITE BLOOD COUNT 22.9 K/mm3 (4.0-10.0)
[2019-03-18 08:26] LABS: ALBUMIN 2.9 g/dl (3.4-5.0); BILIRUBIN,TOTAL 0.6 mg/dL (0.2-1); BLOOD UREA NITROGEN 9.9 mg/dL (7-18); CALCIUM 8.9 mg/dL (8.5-10.1); CREATININE 0.8 mg/dL (0.55-1.3); POTASSIUM 3.6 mmol/L (3.5-5.1); TOT PROT 6.9 g/dl (6.4-8.2)
--- NOTE | 2019-03-18 09:36 | CONSULT ---
Consult Consult Specialty:: General Surgery Reason for Consultation:: abdominal pain s/p lap cholecystectomy - History of Present Illness Chief Complaint: abdominal pain and diarreah History of Present Illness: 78yo female PMH hypertension, major depression, pancreatitis, POD#8 [address] with Dr[address] Avendano presented for several days of bilateral lower abdominal pain with watery diarrhea. Reports that it started right after the surgery, continued and become worse, prompting her to come to the hospital. She reports associated fevers/chills, however she denied chest pain, shortness of breath, nausea or vomiting. Reports that she cannot tolerate PO intake without significant pain to her lower abdomen. States that she tried both acetaminophen and ibuprofen with minimal relief of her pain. No recent travel, denies sick contacts. Denies dysuria. We were called to assess given postoperative proximity. - History Source History Provided By: Patient, Medical Record Limitations to Obtaining History: No Limitations - Past Medical History Cardio/Vascular: Yes: HTN Gastrointestinal: Yes: Pancreatitis Hepatobiliary: Yes: Cholelithiasis Psych: Yes: Anxiety Endocrine: Yes: Diabetes Mellitus (diet controlled) - Past Surgical History Past Surgical History: Yes: Joint Replacement, Tubal Ligation, Colonoscopy, Upper Endoscopy - Alcohol/Substance Use Hx Alcohol Use: No History of Substance Use: reports: None - Smoking History Smoking history: Never smoked Have you smoked in the past 12 months: No Aproximately how many cigarettes per day: 0 If you are a former smoker, when did you quit?: 30 YRS AGO - Social History 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[employer]) History of Recent Travel: No Home Medications - Allergies Allergies/Adverse Reactions: Allergies Allergy/AdvReac Type Severity Reaction Status Date / Time No Known Allergies Allergy Verified 03/17/19 15:39 - Home Medications Home Medications: Ambulatory Orders Paroxetine HCl [Paxil -] 20 mg PO DAILY 08/01/11 clonazePAM [KlonoPIN -] 1 mg PO TID 04/11/16 propRANOLol HCL [Inderal Xl] 120 mg PO DAILY 04/11/16 Aspirin 81 mg PO DAILY 03/08/19 hydrALAZINE HCL [Apresoline -] 25 mg PO TID #30 tablet 03/12/19 Review of Systems - Review of Systems Constitutional: reports: Chills, Fever, Lethargy, Loss of Appetite Eyes: denies: Blind Spots, Recent Change in Vision HENT: denies: Difficult Swallowing, Throat Pain, Toothache Neck: denies: Decreased ROM, Tenderness Cardiovascular: denies: Chest Pain, Palpitations Respiratory: denies: Cough, SOB Gastrointestinal: reports: Abdominal Pain, Diarrhea. denies: Bloating, Constipation Breasts: reports: No Symptoms Reported. denies: Pain Musculoskeletal: denies: Crepitus, Decreased ROM Integumentary: denies: Eczema, Pallor, Rash Neurological: denies: Seizure, Syncope Endocrine: denies: Unexplained Weight Gain, Unexplained Weight Loss Hematology/Lymphatic: denies: Easily Bruised, Excessive Bleeding Psychiatric: denies: Anxiety, Depression Physical Exam Vital Signs: Vital Signs Temperature 97.9 F 03/18/19 07:49 Pulse Rate 96 H 03/18/19 07:49 Respiratory Rate 16 03/18/19 07:49 Blood Pressure 168/81 03/18/19 07:49 O2 Sat by Pulse Oximetry (%) 96 03/18/19 07:49 Constitutional: Yes: Well Nourished, No Distress, Calm, Obese Eyes: Yes: Conjunctiva Clear, EOM Intact HENT: Yes: Atraumatic, Normocephalic Neck: Yes: Supple, Trachea Midline Cardiovascular: Yes: Regular Rate and Rhythm, S1, S2 Respiratory: Yes: Regular, CTA Bilaterally Gastrointestinal: Yes: Normal Bowel Sounds, Soft, Abdomen, Obese. No: Tenderness, Tenderness, Epigastrium, Tenderness, Rebound, Vomiting ...Rectal Exam: Yes: Sphincter Tone Normal. No: Hemorrhoids/External, Inflammation, Mass Renal/: No: CVA Tenderness - Left, CVA Tenderness - Right Breast(s): No: Mass, Nipple Inversion, Skin Changes Musculoskeletal: No: Muscle Pain, Muscle Weakness Extremities: No: Cool, Cyanosis Edema: No Integumentary: No: Incision, Jaundice, Pressure Ulcer Wound/Incision: Yes: Clean/Dry, Well Approximated, Open to air Neurological: Yes: Alert, Oriented Psychiatric: Yes: Alert, Oriented Labs: CBC, BMP 03/18/19 07:05 03/18/19 07:05 Imaging - Results Cat Scan: Report Reviewed, Image Reviewed (pancolitis) Problem List - Problems (1) Pancolitis Assessment/Plan: 78yo female MMP POD#8 s/p laparoscopic cholecystetcomy, diarrhea an significant leukocytotis for [address] scan shows pancolitis. this is presumtively c. diff colitis given recent course of antibiotics. Surgical sites are clean and dry healing well and she has had no further signs of biliary symptoms. Medical management NPO an IVF hydration PO antibiotics ID and GI consult no acute surgical intervention is needed will follow peripherally Thank you for the opportunity to participate in the care of this patient. Problems reviewed: Yes Code(s): K51.00 - ULCERATIVE (CHRONIC) PANCOLITIS WITHOUT COMPLICATIONS (2) Obesity Problems reviewed: Yes Code(s): E66.9 - OBESITY, UNSPECIFIED Qualifiers: Obesity classification: adult class 2 (BMI 35 - 39.9) (3) Gallstone pancreatitis Code(s): K85.10 - BILIARY ACUTE PANCREATITIS WITHOUT NECROSIS OR INFECTION (4) HTN (hypertension) Code(s): I10 - ESSENTIAL (PRIMARY) HYPERTENSION Qualifiers: Hypertension type: essential hypertension Qualified Code(s): I10 - Essential (primary) hypertension
[2019-03-18] MEDS ORDERED: PROPRANOLOL HCL 120 MG PO SCH (10:00)
--- NOTE | 2019-03-18 10:18 | PN ---
Progress Note, Physician History of Present Illness: pt seen/ examined in er chart reviewed family at bedside awake comfortable npo +ve diarrhea - Current Medication List Current Medications: Active Medications Aspirin (Asa -) 81 mg PO DAILY [facility] Hydralazine HCl (Apresoline -) 25 mg PO TID [facility] Last Admin: 03/18/19 07:01 Dose: 25 mg Piperacillin Sod/Tazobactam (Sod 3.375 gm/ Dextrose) 50 mls @ 100 mls/hr IVPB Q6H-IV RACHEL; Protocol Lactated Ringer's (Lactated Ringers Solution) 1,000 mls @ 125 mls/hr IV ASDIR RACHEL Stop: 03/19/19 08:29 Last Admin: 03/18/19 01:45 Dose: 125 mls/hr Piperacillin Sod/Tazobactam (Sod 3.375 gm/ Dextrose) 50 mls @ 100 mls/hr IVPB Q6H-IV RACHEL Stop: 03/18/19 21:29 Last Admin: 03/18/19 03:42 Dose: 100 mls/hr Non-Formulary Medication (Propranolol Hcl [Inderal Xl]) 120 mg PO DAILY [facility] Paroxetine HCl (Paxil -) 20 mg PO DAILY [facility] Vancomycin HCl (Vancomycin Oral Solution) 250 mg PO Q6HPO [facility] Last Admin: 03/18/19 07:01 Dose: 250 mg - Objective Vital Signs: Vital Signs Temperature 99.0 F 03/18/19 09:38 Pulse Rate 96 H 03/18/19 09:38 Respiratory Rate 18 03/18/19 09:38 Blood Pressure 130/70 03/18/19 09:38 O2 Sat by Pulse Oximetry (%) 95 03/18/19 09:38 Constitutional: Yes: No Distress, Calm HENT: Yes: WNL Neck: Yes: Supple Cardiovascular: Yes: Regular Rate and Rhythm Respiratory: Yes: CTA Bilaterally Gastrointestinal: Yes: Soft, Abdomen, Obese Edema: No Neurological: Yes: Alert Psychiatric: Yes: Alert Labs: CBC, BMP 03/18/19 07:05 03/18/19 07:05 Problem List - Problems (1) Obesity Code(s): E66.9 - OBESITY, UNSPECIFIED (2) Abdominal pain Code(s): R10.9 - UNSPECIFIED ABDOMINAL PAIN Qualifiers: Abdominal location: lower abdomen, unspecified Qualified Code(s): R10.30 - Lower abdominal pain, unspecified (3) HTN (hypertension) Code(s): I10 - ESSENTIAL (PRIMARY) HYPERTENSION Qualifiers: Hypertension type: essential hypertension Qualified Code(s): I10 - Essential (primary) hypertension (4) Adrenal adenoma Code(s): D35.00 - BENIGN NEOPLASM OF UNSPECIFIED ADRENAL GLAND Assessment/Plan likely c diff - Pending stool for c diff abx po vanco s/p recent cholnagitis--s/p cholecystectomy/ biliary stent placement fluids monitor lytes dvt prophylaxix gi to follow Adrenal Adenoma - stable-- Further biochemical studies out pt by Pmd as needed. D/w pts family also will follow
[2019-03-18] MEDS ORDERED: PT OWN MED DRAWER 7, Y5N ONE (10:53)
--- NOTE | 2019-03-18 11:07 | CON.GI ---
Consult Consult Specialty:: GI: For Dr. Canela who resumes care 03/20 Referred by:: Dr. Alesha Miller Reason for Consultation:: Colitis, diarrhea - History of Present Illness Chief Complaint: Diarrhea, abdominal pain History of Present Illness: 78[address] [facility] for evaluation of diarrhea. She was recently discharged from [facility] 03/12. During this recent admission, she underwent ERCP performed by Dr. Canela 03/08 that led to sphincterotomy, CBD stone extration and CBD stent placement. Subsequently, laparoscopic cholecystectomy was performed by Dr. Avendano. Since discharge, Ms. Louis has been experiencing increasingly frequent episodes of watery diarrhea and abdominal cramping. This promted her ER visit yesterday. Triage vitals revealed Temp 100.8 P: 85 BP:143/ 70. WBC was elevated to 21K and lactic acid was 1.7. CT scan of the abdomen and pelvis revealed a diffuse colitis. She denies history of colitis in the past. She believes that her last colonoscopy was within the last 5 years and was performed by Dr. Canela. Currently, she continues to experience crampy abdominal pain. Her last loose bowel movement was this morning. She denies any recent travel, sick contacts with similar complaints, change in dietary patterns. - History Source History Provided By: Patient, Medical Record Limitations to Obtaining History: No Limitations - Past Medical History Cardio/Vascular: Yes: HTN Gastrointestinal: Yes: Pancreatitis (Chronic) Hepatobiliary: Yes: Cholelithiasis Psych: Yes: Anxiety Endocrine: Yes: Diabetes Mellitus (diet controlled) - Past Surgical History Past Surgical History: Yes: Cholecystectomy (Laparoscopic 03/25), Colonoscopy, Joint Replacement (left knee), Tubal Ligation, Upper Endoscopy Additional Surgical History: Bilateral tubal ligation - Alcohol/Substance Use Hx Alcohol Use: No History of Substance Use: reports: None - Smoking History Smoking history: Former smoker Have you smoked in the past 12 months: No Aproximately how many cigarettes per day: 0 If you are a former smoker, when did you quit?: 30 YRS AGO - Social History 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 History of Recent Travel: No Home Medications - Allergies Allergies/Adverse Reactions: Allergies Allergy/AdvReac Type Severity Reaction Status Date / Time No Known Allergies Allergy Verified 03/17/19 15:39 - Home Medications Home Medications: Ambulatory Orders Paroxetine HCl [Paxil -] 20 mg PO DAILY 08/01/11 clonazePAM [KlonoPIN -] 1 mg PO TID 04/11/16 propRANOLol HCL [Inderal Xl] 120 mg PO DAILY 04/11/16 Aspirin 81 mg PO DAILY 03/08/19 hydrALAZINE HCL [Apresoline -] 25 mg PO TID #30 tablet 03/12/19 Family Medical History Other Family History: Mother: : 49: uterine cancer. Father: : 86: "old age". 4 brothers, 2 sisters: : All 1 sister from BCA, 1 brother/sister from alcoholism complications. 3 daughters, 2 sons: Healthy. Maternal uncle: colon cancer Review of Systems - Review of Systems Constitutional: reports: Chills. denies: Diaphoresis Cardiovascular: denies: Chest Pain Respiratory: denies: Cough Gastrointestinal: reports: Abdominal Pain, Diarrhea. denies: Melena, Nausea, Rectal Bleeding Physical Exam-GI Vital Signs: Vital Signs Temperature 99.1 F 03/18/19 1100 Pulse Rate 100 H 03/18/19 1100 Respiratory Rate 18 03/18/19 1100 Blood Pressure 155/76 03/18/19 1100 O2 Sat by Pulse Oximetry (%) 98% on RA 03/18/19 1100 Constitutional: Yes: Calm Eyes: No: Sclera Icterus Cardiovascular: Yes: Tachycardia Respiratory: Yes: CTA Bilaterally Gastrointestinal Inspection: Yes: Scars (healing trochar scars, + pelvic surgical scar). No: Distention ...Auscultate: Yes: Normoactive Bowel Sounds ...Palpate: Yes: Soft, Tenderness (mild TTP left lower abdomen). No: Guarding, Tenderness, Rebound ...Percussion: No: Tympanitic Edema: No (No LE edema) Labs: CBC, BMP 03/18/19 07:05 03/18/19 07:05 Assessment/Plan Colitis: Given recent hospitalization and antibiotic exposure, suspect C. Diff colitis, given age and degress of leukocytosis could be considered severe, however patient is stable clinically and hemodynamically without peritoneal signs Advise: Advancing diet to clears and as tolerated if continued clinical improvement Stool for C. Diff Toxin/Antigen, culture. No stool specimens pending as of yet Changed to Vancocin 125mg PO q 6 hours Avoidance of PPI therapy ID to evaluate patient. Would D/C other antibiotics as feasible in setting of suspected C. Diff Monitor CBC , abdominal exam Dr. Canela resumes care 03/20
[2019-03-18] MEDS: ASPIRIN 81 MG CHEWABLE TABLETS PO SCH (11:37)
[2019-03-18] MEDS: PARoxetine HCL 20 MG TABLET PO SCH (11:37)
--- NOTE | 2019-03-18 16:19 | PN ---
Progress Note (short form) - Note Progress Note: ID CONSULT DICTATED C DIFF COLITIS LEUKOCYTOSIS S/P LAP RETA AGREE WITH PO VANCOMYCIN D/C ZOSYN CONTACT PRECAUTIONS
--- NOTE | 2019-03-18 17:28 | CONS ---
DATE OF CONSULTATION: 03/18/2019 HISTORY OF PRESENT ILLNESS: The patient is a 78-year-old female who was evaluated for colitis. She was recently hospitalized from March 08 through March 12 with gallstone pancreatitis. She underwent an ERCP and extraction of a common bile duct stone with stenting. The patient later underwent a laparoscopic cholecystectomy. She is currently post-op day no. 8. She received perioperative antibiotic therapy with ertapenem. She now returns with complaints of worsening bilateral lower crampy abdominal pain associated with non-bloody diarrhea. She was noted to have a low-grade fever and an elevated white blood cell count. A stool for C. difficile is positive. The patient reported a subjective fever and chills. No complaints of rectal bleeding, nausea or vomiting and no complaints of chest pain, shortness of breath, cough, sputum production, dysuria or hematuria. PAST MEDICAL HISTORY: Positive for hypertension, diabetes, depression, pancreatitis, cholelithiasis. PAST SURGICAL HISTORY: Status post left total knee replacement, tubal ligation. ALLERGIES: No known allergies. CURRENT MEDICATIONS: Tylenol, aspirin, Apresoline, morphine, p.o. vancomycin and IV Zosyn. SOCIAL HISTORY: She lives in the community with her family. She is a former smoker, non-drinker. REVIEW OF SYSTEMS: Neurologic: No loss of consciousness, seizure activity, focal weakness. Cardiac: Negative for chest pain or palpitations. Respiratory: Negative cough or sputum production. Gastrointestinal: As per HPI. Genitourinary: Negative for urinary tract infection. LABORATORY DATA: White count 22.9 with left shift, hematocrit 33.8, platelets 436, creatinine 0.8, lactic acid 1.7. Urinalysis negative. A CT scan of the abdomen and pelvis shows acute pancolitis. Cultures are pending. PHYSICAL EXAMINATION: General: She is awake and alert, in no acute distress. Vital Signs: Temperature 98.7, T-max 100.8, blood pressure 143/72, pulse 107 and regular, respiratory rate 18 per minute. HEENT:: Sclerae anicteric. Heart: Heart sounds S1, S2. Lungs: Clear. Abdomen: Obese. There is mild lower quadrant tenderness to palpation bilaterally. Extremities: Positive for edema. Negative Thom sign. IMPRESSION: 1. Clostridium difficile colitis. 2. Marked leukocytosis, likely secondary to Clostridium difficile. 3. Status post laparoscopic cholecystectomy, post-op day no. 8. PLAN: 1. Agree with treatment with oral vancomycin. Discontinue Zosyn. 2. Contact precautions. 3. Case discussed with the patient's daughters present in the emergency room. Thank you for the kind referral. CHELI ROLON M.D. [id number]
[2019-03-18] MEDS ORDERED: HEPARIN NA (PORCINE) 5,000 UNITS/ML 1ML VIAL ONE (20:56)
[2019-03-18] MEDS: HEPARIN NA (PORCINE) 5,000 UNITS/ML 1ML VIAL SQ SCH (21:21)
[2019-03-19] MEDS: ACETAMINOPHEN 325 MG TABLET (FP) PO PRN (00:01)
[2019-03-19] MEDS: VANCOMYCIN 250 MG/5 ML ORAL SOLUTION PO SCH ×5 (00:02→23:36)
[2019-03-19] MEDS: LACTATED RINGERS SOLUTION 1,000 ML IV SCH (00:04)
[2019-03-19] MEDS: hydrALAZINE HCL 25 MG TABLET (FP) PO SCH ×3 (06:23→23:36)
[2019-03-19 08:07] VITALS: BMI 31.6
[2019-03-19 08:52] LABS: BASO % 0.5 % (0-2.0); EOS % 2.4 % (0-4.5); HEMOGLOBIN 10.3 GM/dL (10.7-15.3); LYMPH % 16.3 % (8-40); MCH 27.8 pg (25.7-33.7); MCHC 32.1 g/dl (32.0-36.0); MEAN CELL VOLUME 86.6 fl (80-96); MEAN PLT VOLUME 7.9 fl (7.5-11.1); MONO % 6.7 % (3.8-10.2); NEUT % 74.1 % (42.8-82.8); PLATELET COUNT 433 K/MM3 (134-434); RDW 14.9 % (11.6-15.6)
[2019-03-19 09:27] LABS: ALBUMIN 2.6 g/dl (3.4-5.0); BILIRUBIN,TOTAL 0.4 mg/dL (0.2-1); BLOOD UREA NITROGEN 5.5 mg/dL (7-18); CALCIUM 8.6 mg/dL (8.5-10.1); CREATININE 0.6 mg/dL (0.55-1.3); POTASSIUM 3.5 mmol/L (3.5-5.1); TOT PROT 6.2 g/dl (6.4-8.2)
[2019-03-19] MEDS: PARoxetine HCL 20 MG TABLET PO SCH (10:21)
[2019-03-19] MEDS: ASPIRIN 81 MG CHEWABLE TABLETS PO SCH (10:21)
[2019-03-19] MEDS: HEPARIN NA (PORCINE) 5,000 UNITS/ML 1ML VIAL SQ SCH ×2 (10:21→23:36)
--- NOTE | 2019-03-19 10:44 | PN ---
Progress Note (short form) - Note Progress Note: pt seen/ examined feels much better diarrhea improved significantly all consults noted/ appreciated agree with d/c zosyn on clear liquid diet wbcs improved Vital Signs Temp 98.2 F 03/19/19 06:27 Pulse 73 03/19/19 06:27 Resp 18 03/19/19 06:27 BP 143/77 03/19/19 06:27 Pulse Ox 97 03/18/19 22:00 Intake & Output 03/18/19 03/18/19 03/19/19 11:59 23:59 11:59 Intake Total 1425 1375 Balance 1425 1375 Weight 190 lb 6.4 oz Intake: IV 1375 1375 Lactated Ringers Solution 1375 1375 1,000 ml @ 125 mls/hr IV ASDIR [facility] Rx#: [id number] IVPB 50 Oral 0 Other: Voiding Method Incontinent Incontinent # Unmeasured Voids Void 1 Bowel Movement No # Bowel Movements 3 Height 5 ft 5 in Body Mass Index (BMI) 31.6 Weight Measurement Method Standing Scale Active Medications Acetaminophen (Tylenol -) 650 mg PO Q6H PRN PRN Reason: PAIN LEVEL 1-5 Last Admin: 03/19/19 00:01 Dose: 650 mg Aspirin (Asa -) 81 mg PO DAILY [facility] Last Admin: 03/19/19 10:21 Dose: 81 mg Heparin Sodium (Porcine) (Heparin -) 5,000 unit SQ BID [facility] Last Admin: 03/19/19 10:21 Dose: 5,000 unit Hydralazine HCl (Apresoline -) 25 mg PO TID [facility] Last Admin: 03/19/19 06:23 Dose: 25 mg Paroxetine HCl (Paxil -) 20 mg PO DAILY [facility] Last Admin: 03/19/19 10:21 Dose: 20 mg Propranolol HCl (Inderal La -) 120 mg PO DAILY [facility] Last Admin: 03/19/19 10:21 Dose: 120 mg Vancomycin HCl (Vancomycin Oral Solution) 125 mg PO Q6HPO [facility] Last Admin: 03/19/19 06:23 Dose: 125 mg CBC, BMP 03/19/19 07:56 03/19/19 07:56 Microbiology 03/17/19 20:20 Urine Culture - Final Urine - Urine Clean Catch Normal Urogenital Rea 03/17/19 16:19 Blood Culture - Preliminary Blood - Peripheral Venous NO GROWTH OBTAINED AFTER 24 HOURS, INCUBATION TO CONTINUE FOR 4 DAYS. 03/17/19 16:19 Blood Culture - Preliminary Blood - Peripheral Venous NO GROWTH OBTAINED AFTER 24 HOURS, INCUBATION TO CONTINUE FOR 4 DAYS. 03/18/19 10:25 Clostridioides difficile Antigen - Final Stool Clostridioides difficile Toxin Assay - Final Physical Exam Constitutional: Yes: No Distress, Calm HENT: Yes: WNL Neck: Yes: Supple Cardiovascular: Yes: Regular Rate and Rhythm Respiratory: Yes: CTA Bilaterally Gastrointestinal: Yes: Soft, Abdomen, Obese Edema: No Neurological: Yes: Alert Psychiatric: Yes: Alert Assessment/Plan c diff + precautions in place po vanco s/p recent cholnagitis--s/p cholecystectomy/ biliary stent placement fluids monitor lytes dvt prophylaxix f/u labs advance diet- full liquid Adrenal Adenoma - stable-- Further biochemical studies out pt by Pmd as needed. oob- chair will follow Problem List - Problems (1) Obesity Code(s): E66.9 - OBESITY, UNSPECIFIED Qualifiers: Obesity classification: adult class 2 (BMI 35 - 39.9) (2) Abdominal pain Code(s): R10.9 - UNSPECIFIED ABDOMINAL PAIN Qualifiers: Abdominal location: lower abdomen, unspecified Qualified Code(s): R10.30 - Lower abdominal pain, unspecified (3) HTN (hypertension) Code(s): I10 - ESSENTIAL (PRIMARY) HYPERTENSION Qualifiers: Hypertension type: essential hypertension Qualified Code(s): I10 - Essential (primary) hypertension (4) Adrenal adenoma Code(s): D35.00 - BENIGN NEOPLASM OF UNSPECIFIED ADRENAL GLAND
--- NOTE | 2019-03-19 13:09 | PN.GI ---
GI Progress Note Subjective: No acute events Abdominal pain improved States having had "1/2 a bowel movement today" C. Diff antigen + - Objective Vital Signs: Vital Signs Temperature 98.2 F 03/19/19 06:27 Pulse Rate 73 03/19/19 06:27 Respiratory Rate 18 03/19/19 06:27 Blood Pressure 143/77 03/19/19 06:27 O2 Sat by Pulse Oximetry (%) 97 03/18/19 22:00 Constitutional: Calm Eyes: No: Sclera Icterus Cardiovascular: Yes: Regular Rate and Rhythm Respiratory: Yes: CTA Bilaterally Gastrointestinal Inspection: No: Distention ...Auscultate: Yes: Normoactive Bowel Sounds ...Palpate: Yes: Soft, Tenderness (Improved TTP along left abdomen). No: Guarding, Tenderness, Rebound ...Percussion: No: Tympanitic Neurological: Yes: Alert Labs: CBC, BMP 03/19/19 07:56 03/19/19 07:56 Problem List - Problems (1) C. difficile colitis Assessment/Plan: Leukocytosis improving as has diarrhea Continue Vancocin 125mg PO q 6 hours. Total 14 days Avoid PPI Lactose free diet C. Diff toxin PCR ordered Dr. Canela resumes care 03/20 Problems reviewed: Yes Code(s): A04.72 - ENTEROCOLITIS D/T CLOSTRIDIUM DIFFICILE, NOT SPCF RECUR
--- NOTE | 2019-03-19 21:54 | EKG ---
Test Reason : Blood Pressure : / mmHG Vent. Rate : 073 BPM Atrial Rate : 073 BPM P-R Int : 170 ms QRS Dur : 088 ms QT Int : 444 ms P-R-T Axes : 029 033 030 degrees QTc Int : 489 ms NORMAL SINUS RHYTHM NORMAL ECG WHEN COMPARED WITH ECG OF 07-MAR-2019 21:13, NO SIGNIFICANT CHANGE WAS FOUND Confirmed by Linda Murray ([id number]) on 03/19/2019 9:54:05 PM Referred By: Guanaco ALANIZ Confirmed By:Linda Murray
[2019-03-20] MEDS: ACETAMINOPHEN 325 MG TABLET (FP) PO PRN (03:53)
[2019-03-20] MEDS: hydrALAZINE HCL 25 MG TABLET (FP) PO SCH ×3 (06:04→22:14)
[2019-03-20] MEDS: VANCOMYCIN 250 MG/5 ML ORAL SOLUTION PO SCH ×4 (06:04→23:39)
--- NOTE | 2019-03-20 07:50 | PN ---
Progress Note, Physician Chief Complaint: diarrhea History of Present Illness: 78yo female PMH hypertension, major depression, pancreatitis, POD#[address] Avendano presented for several days of bilateral lower abdominal pain with watery diarrhea. interval improvement of fever, no complaints - Current Medication List Current Medications: Active Medications Acetaminophen (Tylenol -) 650 mg PO Q6H PRN PRN Reason: PAIN LEVEL 1-5 Last Admin: 03/20/19 03:53 Dose: 650 mg Aspirin (Asa -) 81 mg PO DAILY [facility] Last Admin: 03/19/19 10:21 Dose: 81 mg Heparin Sodium (Porcine) (Heparin -) 5,000 unit SQ BID [facility] Last Admin: 03/19/19 23:36 Dose: 5,000 unit Hydralazine HCl (Apresoline -) 25 mg PO TID [facility] Last Admin: 03/20/19 06:04 Dose: 25 mg Paroxetine HCl (Paxil -) 20 mg PO DAILY [facility] Last Admin: 03/19/19 10:21 Dose: 20 mg Propranolol HCl (Inderal La -) 120 mg PO DAILY [facility] Last Admin: 03/19/19 10:21 Dose: 120 mg Vancomycin HCl (Vancomycin Oral Solution) 125 mg PO Q6HPO [facility] Last Admin: 03/20/19 06:04 Dose: 125 mg - Objective Vital Signs: Vital Signs Temperature 98.5 F 03/20/19 06:00 Pulse Rate 62 03/20/19 06:00 Respiratory Rate 18 03/20/19 06:00 Blood Pressure 131/55 L 03/20/19 06:00 O2 Sat by Pulse Oximetry (%) 96 03/19/19 21:00 Vital Signs Period Temp Pulse Resp BP Sys/Vasques Pulse Ox Last 24 Hr 98.5 F-99.2 F 62-70 18-20 131-159/55-70 96-97 Constitutional: Yes: No Distress, Calm, Obese Eyes: Yes: Conjunctiva Clear, EOM Intact HENT: Yes: Atraumatic, Normocephalic Neck: Yes: Supple, Trachea Midline Cardiovascular: Yes: Regular Rate and Rhythm, S1, S2 Respiratory: Yes: Regular, CTA Bilaterally Gastrointestinal: Yes: Normal Bowel Sounds, Soft, Abdomen, Obese. No: Tenderness, Tenderness, Rebound ...Rectal Exam: Yes: Deferred Genitourinary: No: CVA Tenderness - Left, CVA Tenderness - Right Breast(s): No: Mass, Skin Changes Musculoskeletal: No: Joint Swelling, Muscle Pain Extremities: No: Cool, Cyanosis Edema: No Peripheral Pulses WNL: Yes Peripheral Pulses: Left Radial: 2+, Right Radial: 2+, Left Doralis Pedis: 2+, Right Dorsalis Pedis: 2+, Left Femoral: 2+, Right Femoral: 2+ Integumentary: No: Jaundice, Rash Neurological: Yes: Alert, Oriented Psychiatric: Yes: Alert, Oriented Labs: CBC, BMP 03/19/19 07:56 03/19/19 07:56 Microbiology 03/17/19 16:19 Blood - Peripheral Venous Blood Culture - Preliminary NO GROWTH OBTAINED AFTER 48 HOURS, INCUBATION TO CONTINUE FOR 3 DAYS. 03/17/19 16:19 Blood - Peripheral Venous Blood Culture - Preliminary NO GROWTH OBTAINED AFTER 48 HOURS, INCUBATION TO CONTINUE FOR 3 DAYS. 03/17/19 20:20 Urine - Urine Clean Catch Urine Culture - Final Normal Urogenital Rea 03/18/19 10:25 Stool Clostridioides difficile Antigen - Final 03/18/19 10:25 Stool Clostridioides difficile Toxin Assay - Final Problem List - Problems (1) Pancolitis Assessment/Plan: 78yo female MMP POD#8 s/p laparoscopic cholecystetcomy, diarrhea an significant leukocytotis for [address] scan shows pancolitis. C. diff antigen positive toxin undetectable. Surgical sites are clean and dry healing well and she has had no further signs of biliary symptoms. interval improvement of symptoms. Medical management clear diet and advance as tolerated PO antibiotics ID and GI consult no acute surgical intervention is needed Recall as needed Problems reviewed: Yes Code(s): K51.00 - ULCERATIVE (CHRONIC) PANCOLITIS WITHOUT COMPLICATIONS (2) Obesity Problems reviewed: Yes Code(s): E66.9 - OBESITY, UNSPECIFIED Qualifiers: Obesity classification: adult class 2 (BMI 35 - 39.9) (3) Gallstone pancreatitis Problems reviewed: Yes Code(s): K85.10 - BILIARY ACUTE PANCREATITIS WITHOUT NECROSIS OR INFECTION (4) HTN (hypertension) Problems reviewed: Yes Code(s): I10 - ESSENTIAL (PRIMARY) HYPERTENSION Qualifiers: Hypertension type: essential hypertension Qualified Code(s): I10 - Essential (primary) hypertension
--- NOTE | 2019-03-20 10:51 | PN ---
Progress Note (short form) - Note Progress Note: pt seen/ examined overall better tolerating diet wbc coming down. Vital Signs Temp 98.5 F 03/20/19 06:00 Pulse 62 03/20/19 06:00 Resp 18 03/20/19 06:00 BP 131/55 L 03/20/19 06:00 Pulse Ox 96 03/19/19 21:00 Intake & Output 03/19/19 03/19/19 03/20/19 11:59 23:59 11:59 Intake Total 1375 800 Balance 1375 800 Intake: IV 1375 Lactated Ringers Solution 1375 1,000 ml @ 125 mls/hr IV ASDIR [facility] Rx#: [id number] Oral 800 Other: Voiding Method Toilet Toilet # Unmeasured Voids Void 2 2 Bowel Movement Yes # Bowel Movements 1 Active Medications Acetaminophen (Tylenol -) 650 mg PO Q6H PRN PRN Reason: PAIN LEVEL 1-5 Last Admin: 03/20/19 03:53 Dose: 650 mg Aspirin (Asa -) 81 mg PO DAILY [facility] Last Admin: 03/19/19 10:21 Dose: 81 mg Heparin Sodium (Porcine) (Heparin -) 5,000 unit SQ BID [facility] Last Admin: 03/19/19 23:36 Dose: 5,000 unit Hydralazine HCl (Apresoline -) 25 mg PO TID [facility] Last Admin: 03/20/19 06:04 Dose: 25 mg Paroxetine HCl (Paxil -) 20 mg PO DAILY [facility] Last Admin: 03/19/19 10:21 Dose: 20 mg Propranolol HCl (Inderal La -) 120 mg PO DAILY [facility] Last Admin: 03/19/19 10:21 Dose: 120 mg Vancomycin HCl (Vancomycin Oral Solution) 125 mg PO Q6HPO [facility] Last Admin: 03/20/19 06:04 Dose: 125 mg CBC, BMP 03/19/19 07:56 03/19/19 07:56 Microbiology 03/17/19 16:19 Blood Culture - Preliminary Blood - Peripheral Venous NO GROWTH OBTAINED AFTER 48 HOURS, INCUBATION TO CONTINUE FOR 3 DAYS. 03/17/19 16:19 Blood Culture - Preliminary Blood - Peripheral Venous NO GROWTH OBTAINED AFTER 48 HOURS, INCUBATION TO CONTINUE FOR 3 DAYS. 03/17/19 20:20 Urine Culture - Final Urine - Urine Clean Catch Normal Urogenital Rea Physical Exam Constitutional: Yes: No Distress, Calm HENT: Yes: WNL Neck: Yes: Supple Cardiovascular: Yes: Regular Rate and Rhythm Respiratory: Yes: CTA Bilaterally Gastrointestinal: Yes: Soft, Abdomen, Obese Edema: No Neurological: Yes: Alert Psychiatric: Yes: Alert Assessment/Plan c diff + precautions in place po vanco s/p recent cholnagitis--s/p cholecystectomy/ biliary stent placement Adrenal Adenoma - stable-- Further biochemical studies out pt by Pmd as needed. oob- chair will follow advance diet oob - chair f/u labs if stable- d/c in am Problem List - Problems (1) Obesity Code(s): E66.9 - OBESITY, UNSPECIFIED Qualifiers: Obesity classification: adult class 2 (BMI 35 - 39.9) (2) Abdominal pain Code(s): R10.9 - UNSPECIFIED ABDOMINAL PAIN Qualifiers: Abdominal location: lower abdomen, unspecified Qualified Code(s): R10.30 - Lower abdominal pain, unspecified (3) HTN (hypertension) Code(s): I10 - ESSENTIAL (PRIMARY) HYPERTENSION Qualifiers: Hypertension type: essential hypertension Qualified Code(s): I10 - Essential (primary) hypertension (4) Adrenal adenoma Code(s): D35.00 - BENIGN NEOPLASM OF UNSPECIFIED ADRENAL GLAND
[2019-03-20] MEDS: HEPARIN NA (PORCINE) 5,000 UNITS/ML 1ML VIAL SQ SCH ×2 (11:27→22:13)
[2019-03-20] MEDS: ASPIRIN 81 MG CHEWABLE TABLETS PO SCH (11:27)
[2019-03-20] MEDS: PARoxetine HCL 20 MG TABLET PO SCH (11:27)
--- NOTE | 2019-03-20 17:16 | PN ---
Progress Note, Physician History of Present Illness: GI FOLLOW UP NOTE Patient examined and case discussed with Dr Canela Patient states having 2 episodes of non-bloody diarrhea. Denies nausea, vomiting, abdominal pain, rectal bleeding or melena. - Current Medication List Current Medications: Active Medications Acetaminophen (Tylenol -) 650 mg PO Q6H PRN PRN Reason: PAIN LEVEL 1-5 Last Admin: 03/20/19 03:53 Dose: 650 mg Aspirin (Asa -) 81 mg PO DAILY [facility] Last Admin: 03/20/19 11:27 Dose: 81 mg Heparin Sodium (Porcine) (Heparin -) 5,000 unit SQ BID [facility] Last Admin: 03/20/19 11:27 Dose: 5,000 unit Hydralazine HCl (Apresoline -) 25 mg PO TID [facility] Last Admin: 03/20/19 14:37 Dose: 25 mg Paroxetine HCl (Paxil -) 20 mg PO DAILY [facility] Last Admin: 03/20/19 11:27 Dose: 20 mg Propranolol HCl (Inderal La -) 120 mg PO DAILY [facility] Last Admin: 03/20/19 11:26 Dose: 120 mg Vancomycin HCl (Vancomycin Oral Solution) 125 mg PO Q6HPO [facility] Last Admin: 03/20/19 11:44 Dose: 125 mg - Objective Vital Signs: Vital Signs Temperature 98.9 F 03/20/19 14:00 Pulse Rate 62 03/20/19 14:00 Respiratory Rate 18 03/20/19 14:00 Blood Pressure 155/75 03/20/19 14:00 O2 Sat by Pulse Oximetry (%) 96 03/19/19 21:00 Constitutional: Yes: No Distress, Calm Eyes: Yes: Conjunctiva Clear HENT: Yes: Atraumatic Cardiovascular: Yes: Regular Rate and Rhythm Respiratory: Yes: Regular, CTA Bilaterally Gastrointestinal: Yes: Normal Bowel Sounds, Soft, Tenderness (rlq and llq) Neurological: Yes: Alert Psychiatric: Yes: Alert Labs: CBC, BMP 03/19/19 07:56 03/19/19 07:56 Problem List - Problems (1) C. difficile colitis Assessment/Plan: -Continue Vancomycin q6h PO -will add IV Flagyl -full liquid diet Code(s): A04.72 - ENTEROCOLITIS D/T CLOSTRIDIUM DIFFICILE, NOT SPCF RECUR
[2019-03-20] MEDS ORDERED: PT OWN MED DRAWER 7, Y5N ONE ×2 (22:13→23:39)
[2019-03-20] MEDS: clonazePAM 0.5 MG TABLET PO SCH (22:13)
[2019-03-21] MEDS ORDERED: PT OWN MED DRAWER 7, Y5N ONE (05:59)
[2019-03-21] MEDS: clonazePAM 0.5 MG TABLET PO SCH ×3 (06:08→21:55)
[2019-03-21] MEDS: hydrALAZINE HCL 25 MG TABLET (FP) PO SCH ×3 (06:08→21:55)
[2019-03-21] MEDS: VANCOMYCIN 250 MG/5 ML ORAL SOLUTION PO SCH ×3 (06:08→18:39)
[2019-03-21 07:23] LABS: EOS % 3.9 % (0-4.5); HEMATOCRIT 32.8 % (32.4-45.2); HEMOGLOBIN 10.8 GM/dL (10.7-15.3); LYMPH % 31.3 % (8-40); MCH 28.4 pg (25.7-33.7); MEAN CELL VOLUME 85.9 fl (80-96); MEAN PLT VOLUME 8.2 fl (7.5-11.1); MONO % 9.1 % (3.8-10.2); NEUT % 54.7 % (42.8-82.8); PLATELET COUNT 474 K/MM3 (134-434); RBC 3.82 M/mm3 (3.60-5.2); RDW 14.6 % (11.6-15.6); WHITE BLOOD COUNT 9.3 K/mm3 (4.0-10.0)
[2019-03-21 07:52] LABS: ALBUMIN 2.8 g/dl (3.4-5.0); BILIRUBIN,TOTAL 0.5 mg/dL (0.2-1); BLOOD UREA NITROGEN 3.7 mg/dL (7-18); CALCIUM 8.9 mg/dL (8.5-10.1); CREATININE 0.6 mg/dL (0.55-1.3); POTASSIUM 3.4 mmol/L (3.5-5.1); TOT PROT 6.6 g/dl (6.4-8.2)
[2019-03-21] MEDS: HEPARIN NA (PORCINE) 5,000 UNITS/ML 1ML VIAL SQ SCH ×2 (11:29→21:54)
[2019-03-21] MEDS: PARoxetine HCL 20 MG TABLET PO SCH (11:29)
[2019-03-21] MEDS: ASPIRIN 81 MG CHEWABLE TABLETS PO SCH (11:29)
--- NOTE | 2019-03-21 13:16 | PN ---
Progress Note (short form) - Note Progress Note: Events note has pasty stools now per RN no abd pain Pt feels well She has an appetite Vital Signs - 24 hr 03/20/19 03/20/19 03/20/19 14:00 18:00 22:36 Temperature 98.9 F 98.3 F 97.4 F L Pulse Rate 62 63 63 Respiratory 18 18 20 Rate Blood Pressure 155/75 156/70 163/78 03/21/19 06:00 Temperature 99.8 F H Pulse Rate 72 Respiratory 20 Rate Blood Pressure 152/80 Current Medications Generic Name Dose Route Start Last Admin Trade Name Freq PRN Reason Stop Dose Admin Acetaminophen 650 mg 03/18/19 23:32 03/20/19 03:53 Tylenol - PO 650 mg Q6H PRN Administration PAIN LEVEL 1-5 Aspirin 81 mg 03/18/19 10:00 03/21/19 11:29 Asa - PO 81 mg DAILY RACHEL Administration Clonazepam 1 mg 03/20/19 22:00 03/21/19 06:08 Klonopin - PO 1 mg TID RACHEL Administration Heparin Sodium (Porcine) 5,000 unit 03/18/19 22:00 03/21/19 11:29 Heparin - SQ 5,000 unit BID RACHEL Administration Hydralazine HCl 25 mg 03/18/19 06:00 03/21/19 06:08 Apresoline - PO 25 mg TID RACHEL Administration Metronidazole 500 mg in 100 mls @ 100 mls/hr 03/20/19 18:00 03/21/19 11:28 Flagyl 500mg Premixed Ivpb - IVPB 100 mls/hr Q8H-IV RACHEL Administration Paroxetine HCl 20 mg 03/18/19 10:00 03/21/19 11:29 Paxil - PO 20 mg DAILY RACHEL Administration Propranolol HCl 120 mg 03/18/19 23:30 03/21/19 11:31 Inderal La - PO 120 mg DAILY RACHEL Administration Vancomycin HCl 125 mg 03/18/19 12:00 03/21/19 11:28 Vancomycin Oral Solution PO 125 mg Q6HPO RACHEL Administration Laboratory Results - last 24 hr 03/21/19 03/21/19 06:45 06:45 WBC 9.3 RBC 3.82 Hgb 10.8 Hct 32.8 MCV 85.9 MCH 28.4 MCHC 33.0 RDW 14.6 Plt Count 474 H MPV 8.2 Absolute Neuts (auto) 5.1 Neutrophils % 54.7 D Lymphocytes % 31.3 D Monocytes % 9.1 Eosinophils % 3.9 Basophils % 1.0 Nucleated RBC % 0 Sodium 144 Potassium 3.4 L Chloride 110 H Carbon Dioxide 28 Anion Gap 6 L BUN 3.7 L Creatinine 0.6 Est GFR (CKD-EPI)AfAm 101.90 Est GFR (CKD-EPI)NonAf 87.92 Random Glucose 111 H Calcium 8.9 Total Bilirubin 0.5 AST 19 ALT 15 Alkaline Phosphatase 101 Total Protein 6.6 Albumin 2.8 L Physical Exam Constitutional: Yes: No Distress, Calm HENT: Yes: WNL Neck: Yes: Supple Cardiovascular: Yes: Regular Rate and Rhythm Respiratory: Yes: CTA Bilaterally Gastrointestinal: Yes: Soft, Abdomen, Obese Edema: No Neurological: Yes: Alert Psychiatric: Yes: Alert Assessment/Plan c diff + precautions in place po vanco s/p recent cholnagitis--s/p cholecystectomy/ biliary stent placement Adrenal Adenoma - stable-- Further biochemical studies out pt by Pmd as needed. unable to get IV line-- will change Flagyl to PO replace K Problem List - Problems (1) Functional quadriplegia Code(s): R53.2 - FUNCTIONAL QUADRIPLEGIA (2) Abdominal pain Code(s): R10.9 - UNSPECIFIED ABDOMINAL PAIN Qualifiers: Abdominal location: lower abdomen, unspecified Qualified Code(s): R10.30 - Lower abdominal pain, unspecified (3) Adrenal adenoma Code(s): D35.00 - BENIGN NEOPLASM OF UNSPECIFIED ADRENAL GLAND (4) C. difficile colitis Code(s): A04.72 - ENTEROCOLITIS D/T CLOSTRIDIUM DIFFICILE, NOT SPCF RECUR
[2019-03-21] MEDS ORDERED: POTASSIUM CHLORIDE TABS 20 MEQ TABLET.ER (FP) PO ONE (13:19)
[2019-03-21] MEDS: metroNIDAZOLE 250 MG TABLET PO SCH ×2 (14:32→21:55)
[2019-03-22] MEDS: VANCOMYCIN 250 MG/5 ML ORAL SOLUTION PO SCH ×4 (00:22→19:08)
[2019-03-22] MEDS: clonazePAM 0.5 MG TABLET PO SCH ×3 (06:17→22:18)
[2019-03-22] MEDS: metroNIDAZOLE 250 MG TABLET PO SCH ×3 (06:17→22:18)
[2019-03-22] MEDS: hydrALAZINE HCL 25 MG TABLET (FP) PO SCH ×3 (06:17→22:19)
[2019-03-22] MEDS: PIPERACILLIN/TAZOB 3.375 GM 3.375 GM in DEXTROSE 5%-WATER - 50 ML IVPB SCH (07:16)
[2019-03-22] MEDS ORDERED: PT OWN MED DRAWER 7, Y5N ONE ×3 (10:23→11:52)
[2019-03-22] MEDS: PARoxetine HCL 20 MG TABLET PO SCH (10:30)
[2019-03-22] MEDS: PANTOPRAZOLE 40 MG TABLET (FP) PO SCH (10:30)
[2019-03-22] MEDS: HEPARIN NA (PORCINE) 5,000 UNITS/ML 1ML VIAL SQ SCH ×2 (10:31→22:18)
[2019-03-22] MEDS: ASPIRIN 81 MG CHEWABLE TABLETS PO SCH (10:43)
--- NOTE | 2019-03-22 12:58 | PN ---
Progress Note (short form) - Note Progress Note: soft stools no nausea Pt feels well family at bedside Vital Signs - 24 hr 03/21/19 03/21/19 03/21/19 14:00 17:32 19:53 Temperature 98.7 F 99.7 F H 97.6 F Pulse Rate 71 64 54 L Respiratory 18 20 20 Rate Blood Pressure 146/74 138/66 126/51 L 03/21/19 03/21/19 03/22/19 19:59 21:00 09:00 Temperature 97.8 F Pulse Rate 68 Respiratory 20 20 20 Rate Blood Pressure 144/76 03/22/19 10:00 Temperature 98.9 F Pulse Rate 74 Respiratory 20 Rate Blood Pressure 140/80 Current Medications Generic Name Dose Route Start Last Admin Trade Name Freq PRN Reason Stop Dose Admin Acetaminophen 650 mg 03/18/19 23:32 03/20/19 03:53 Tylenol - PO 650 mg Q6H PRN Administration PAIN LEVEL 1-5 Aspirin 81 mg 03/18/19 10:00 03/22/19 10:43 Asa - PO 81 mg DAILY RACHEL Administration Clonazepam 1 mg 03/20/19 22:00 03/22/19 06:17 Klonopin - PO 1 mg TID RACHEL Administration Heparin Sodium (Porcine) 5,000 unit 03/18/19 22:00 03/22/19 10:31 Heparin - SQ 5,000 unit BID RACHEL Administration Hydralazine HCl 25 mg 03/18/19 06:00 03/22/19 06:17 Apresoline - PO 25 mg TID RACHEL Administration Metronidazole 500 mg 03/21/19 14:00 03/22/19 06:17 Flagyl - PO 500 mg TID RACHEL Administration Pantoprazole Sodium 40 mg 03/22/19 10:00 03/22/19 10:30 Protonix - PO 40 mg DAILY RACHEL Administration Paroxetine HCl 20 mg 03/18/19 10:00 03/22/19 10:30 Paxil - PO 20 mg DAILY RACHEL Administration Propranolol HCl 120 mg 03/18/19 23:30 03/22/19 10:32 Inderal La - PO 120 mg DAILY RACHEL Administration Vancomycin HCl 125 mg 03/18/19 12:00 03/22/19 12:15 Vancomycin Oral Solution PO 125 mg Q6HPO RACHEL Administration Physical Exam Constitutional: Yes: No Distress, Calm HENT: Yes: WNL Neck: Yes: Supple Cardiovascular: Yes: Regular Rate and Rhythm Respiratory: Yes: CTA Bilaterally Gastrointestinal: Yes: Soft, Abdomen, Obese Edema: No Neurological: Yes: Alert Psychiatric: Yes: Alert Assessment/Plan c diff + precautions in place po vanco s/p recent cholnagitis--s/p cholecystectomy/ biliary stent placement Adrenal Adenoma - stable-- Further biochemical studies out pt by Pmd as needed. on po flagyl check labs today possible dc tomorrow Problem List - Problems (1) Functional quadriplegia Code(s): R53.2 - FUNCTIONAL QUADRIPLEGIA (2) Abdominal pain Code(s): R10.9 - UNSPECIFIED ABDOMINAL PAIN Qualifiers: Abdominal location: lower abdomen, unspecified Qualified Code(s): R10.30 - Lower abdominal pain, unspecified (3) Adrenal adenoma Code(s): D35.00 - BENIGN NEOPLASM OF UNSPECIFIED ADRENAL GLAND (4) C. difficile colitis Code(s): A04.72 - ENTEROCOLITIS D/T CLOSTRIDIUM DIFFICILE, NOT SPCF RECUR
--- NOTE | 2019-03-22 19:30 | PN ---
Progress Note, Physician History of Present Illness: GI FOLLOW UP NOTE Patient examined and case discussed with Dr Canela Patient states still having non-bloody diarrhea, one episode last night and one this morning. Denies abdominal pain, nausea, vomiting, rectal bleeding. No reports of blood in stool. - Current Medication List Current Medications: Active Medications Acetaminophen (Tylenol -) 650 mg PO Q6H PRN PRN Reason: PAIN LEVEL 1-5 Last Admin: 03/20/19 03:53 Dose: 650 mg Aspirin (Asa -) 81 mg PO DAILY [facility] Last Admin: 03/22/19 10:43 Dose: 81 mg Clonazepam (Klonopin -) 1 mg PO TID [facility] Last Admin: 03/22/19 15:07 Dose: 1 mg Heparin Sodium (Porcine) (Heparin -) 5,000 unit SQ BID [facility] Last Admin: 03/22/19 10:31 Dose: 5,000 unit Hydralazine HCl (Apresoline -) 25 mg PO TID [facility] Last Admin: 03/22/19 15:07 Dose: 25 mg Metronidazole (Flagyl -) 500 mg PO TID [facility] Last Admin: 03/22/19 15:06 Dose: 500 mg Pantoprazole Sodium (Protonix -) 40 mg PO DAILY [facility] Last Admin: 03/22/19 10:30 Dose: 40 mg Paroxetine HCl (Paxil -) 20 mg PO DAILY [facility] Last Admin: 03/22/19 10:30 Dose: 20 mg Propranolol HCl (Inderal La -) 120 mg PO DAILY [facility] Last Admin: 03/22/19 10:32 Dose: 120 mg Vancomycin HCl (Vancomycin Oral Solution) 125 mg PO Q6HPO [facility] Last Admin: 03/22/19 19:08 Dose: 125 mg - Objective Vital Signs: Vital Signs Temperature 98.4 F 03/22/19 17:17 Pulse Rate 61 03/22/19 17:17 Respiratory Rate 20 03/22/19 17:17 Blood Pressure 147/72 03/22/19 17:17 O2 Sat by Pulse Oximetry (%) 96 03/20/19 09:00 Constitutional: Yes: No Distress, Calm Eyes: Yes: Conjunctiva Clear HENT: Yes: Atraumatic Cardiovascular: Yes: Regular Rate and Rhythm Respiratory: Yes: Regular, CTA Bilaterally Gastrointestinal: Yes: Normal Bowel Sounds, Soft, Abdomen, Obese Neurological: Yes: Alert, Oriented Psychiatric: Yes: Alert, Oriented Labs: CBC, BMP 03/21/19 06:45 03/21/19 06:45 Problem List - Problems (1) C. difficile colitis Assessment/Plan: -Continue Vancomycin q6h PO and Flagyl -full liquid diet Code(s): A04.72 - ENTEROCOLITIS D/T CLOSTRIDIUM DIFFICILE, NOT SPCF RECUR
[2019-03-23] MEDS: VANCOMYCIN 250 MG/5 ML ORAL SOLUTION PO SCH ×3 (01:00→11:18)
[2019-03-23] MEDS: hydrALAZINE HCL 25 MG TABLET (FP) PO SCH (05:42)
[2019-03-23] MEDS: metroNIDAZOLE 250 MG TABLET PO SCH (05:42)
[2019-03-23] MEDS: clonazePAM 0.5 MG TABLET PO SCH (05:42)
[2019-03-23 09:24] LABS: HEMATOCRIT 32.4 % (32.4-45.2); HEMOGLOBIN 10.5 GM/dL (10.7-15.3); MCH 28.1 pg (25.7-33.7); MCHC 32.5 g/dl (32.0-36.0); MEAN CELL VOLUME 86.5 fl (80-96); MEAN PLT VOLUME 8.6 fl (7.5-11.1); PLATELET COUNT 493 K/MM3 (134-434); RBC 3.75 M/mm3 (3.60-5.2); RDW 14.4 % (11.6-15.6)
[2019-03-23 09:49] LABS: ALBUMIN 2.8 g/dl (3.4-5.0); BILIRUBIN,TOTAL 0.4 mg/dL (0.2-1); CALCIUM 8.4 mg/dL (8.5-10.1); CREATININE 0.6 mg/dL (0.55-1.3); POTASSIUM 3.8 mmol/L (3.5-5.1); TOT PROT 6.4 g/dl (6.4-8.2)
[2019-03-23 10:13] VITALS: BP 140/70; PULSE 68; TEMP 98.6
--- NOTE | 2019-03-23 11:01 | DS ---
Physical Examination Vital Signs: Vital Signs Temperature 98.6 F 03/23/19 10:12 Pulse Rate 68 03/23/19 10:12 Respiratory Rate 18 03/23/19 10:12 Blood Pressure 140/70 03/23/19 10:12 O2 Sat by Pulse Oximetry (%) 96 03/20/19 09:00 Constitutional: Yes: No Distress, Calm Cardiovascular: Yes: Regular Rate and Rhythm Respiratory: Yes: CTA Bilaterally Gastrointestinal: Yes: Normal Bowel Sounds, Soft. No: Tenderness Edema: No Labs: CBC, BMP 03/23/19 07:10 03/23/19 07:10 Discharge Summary Problems reviewed: Yes Reason For Visit: ULCERATIVE PANCOLITIS, ABDOMINAL PAIN Current Active Problems Abdominal pain (Acute) Adrenal adenoma (Acute) C. difficile colitis (Acute) Functional quadriplegia (Acute) Obesity (Acute) Pancolitis (Acute) Hospital Course: ADMISSION HISTORY-- 78 year old female with a history of hypertension, major depression, pancreatitis, POD # [address] Avendano presented for several days of bilateral lower abdominal pain with watery diarrhea #Sepsis 07/09 Pancolitis: could be infectious vs inflammatory in origin vs c diff colitis; s/p ERCP on 03/08 with stone extraction/stenting -empiric abx started- patient is on vancomycin PO and zosyn IV -studies sent for stool culture, lactoferrin, stool WBCs -lipase normal -blood/urine cultures pending -lactated ringers at 125cc/hr -GI consulted -ID consulted -Dr. Avendano consulted HOSPITAL COURSE Pt was admitted to med surg CT abd-- pancolitis Cdiff stool positive Evaluated by Surgery, GI started initially on PO vanco and later started PO Flagyl Pt clinically improved-- stools are soft, not watery ' she has adrenal adenoma-- needs further work up-- biochemical studies to be done as an outpt by PMD stable for dc home-- needs to complete total 14 days of antibiotics--sent to pharmacy today She has to follow up with PMD-- DR Greta borrero Follow up with GI-- DR malloy after completion of antibiotics Condition: Improved - Instructions Referrals: Gigi Malloy MD [Staff Physician] - Nicolle Borrero MD [Primary Care Provider] - Disposition: HOME - Home Medications Comprehensive Discharge Medication List: Ambulatory Orders Paroxetine HCl [Paxil -] 20 mg PO DAILY 08/01/11 clonazePAM [KlonoPIN -] 1 mg PO TID 04/11/16 propRANOLol HCL [Inderal Xl] 120 mg PO DAILY 04/11/16 Aspirin 81 mg PO DAILY 03/08/19 hydrALAZINE HCL [Apresoline -] 25 mg PO TID #30 tablet 03/12/19
[2019-03-23] MEDS: PARoxetine HCL 20 MG TABLET PO SCH (11:18)
[2019-03-23] MEDS: HEPARIN NA (PORCINE) 5,000 UNITS/ML 1ML VIAL SQ SCH (11:18)
[2019-03-23] MEDS: PANTOPRAZOLE 40 MG TABLET (FP) PO SCH (11:18)
[2019-03-23] MEDS: ASPIRIN 81 MG CHEWABLE TABLETS PO SCH (11:18)
== END 2019-03-23 15:16 | disposition home or self-care (01) | DRG 871 ==
LOC: JER 15:08 → JERBED 20:35 → J5S 03-18 22:59 → J8W 03-20 21:28
PROVIDERS: ADMIT Internal Medicine; ATTEND Internal Medicine
DX: A41.9 Sepsis, unspecified organism (principal); K85.10 Biliary acute pancreatitis without necrosis or infection; K51.00 Ulcerative (chronic) pancolitis without complications; A04.72 Enterocolitis due to Clostridium difficile, not specified as recurrent; E11.9 Type 2 diabetes mellitus without complications; F41.9 Anxiety disorder, unspecified; R45.0 Nervousness; Z96.652 Presence of left artificial knee joint; F32.9 Major depressive disorder, single episode, unspecified; I10 Essential (primary) hypertension; T36.95XA Adverse effect of unspecified systemic antibiotic, initial encounter; D35.00 Benign neoplasm of unspecified adrenal gland; R19.7 Diarrhea, unspecified; E66.9 Obesity, unspecified; Z68.31 Body mass index [BMI] 31.0-31.9, adult; R10.30 Lower abdominal pain, unspecified; D72.829 Elevated white blood cell count, unspecified
CPT/HCPCS: 36415; 71045-TC-FY; 74177-TC; 80053; 81003; 83605; 83690; 85025; 85027; 87040; 87045; 87046; 87086; 87205; 87324; 87449; 93005; 93010; 97116-GP; 97162-GP; 99285-25; J0131; J1644